=== PATIENT | female | born 1985 | race Caucasian/White ===

== ENCOUNTER 2016-08-03 15:10 | Emergency (ER) | payer BC ==
[2016-08-03] MEDS ORDERED: Aspirin Low Dose CHEW TAB* 81 MG PO ONE (16:22)
[2016-08-03 16:40] LABS: Urine Bacteria Absent (Absent); Urine Bilirubin Negative (Negative); Urine Glucose Negative (Negative); Urine Nitrite Negative (Negative)
--- NOTE | 2016-08-03 16:46 | ED ---
HPI Chest Pain - HPI Summary HPI Summary: 31F presents with intermittent chest pain for a week. She also admits to lightheadedness when she stands up. She states that she has been having cold like symptoms for a month. She admits to a cough. She denies any fevers. She admits to a headache. She denies any abdominal pain, n/v/d, sore throat. She denies any shortness of breath. She states the chest pain comes and goes and describes it as a pressure in the mild of her chest. She states the pain does not go anywhere. She denies any weakness. She is on control. She denies any family history of blood clots, recent travel, pain or swelling in her calf muscles. She is a a nonsmoker and does not have HTN or DM. - History of Current Complaint Chief Complaint: EDChestPainROMI Time Seen by Provider: 08/03/16 16:22 Pain Intensity: 4 - Allergy/Home Medications Allergies/Adverse Reactions: Allergies Allergy/AdvReac Type Severity Reaction Status Date / Time No Known Allergies Allergy Verified 08/03/16 15:13 PMH/Surg Hx/FS Hx/Imm Hx Endocrine/Hematology History: Denies: Hx Diabetes, Hx Thyroid Disease Cardiovascular History: Denies: Hx Hypertension Respiratory History: Reports: Hx Sleep Apnea, Other Respiratory Problems/ Disorders - SLEEP APNEA W/ CPAP X 3 WKS Denies: Hx Asthma, Hx Chronic Obstructive Pulmonary Disease (COPD) GI History: Reports: Other GI Disorders - constant nausea Denies: Hx Ulcer Musculoskeletal History: Reports: Other Musculoskeletal History - Plantars Fasciitis Denies: Hx Rheumatoid Arthritis, Hx Osteoporosis Sensory History: Reports: Hx Contacts or Glasses Opthamlomology History: Reports: Hx Contacts or Glasses Neurological History: Reports: Hx Headaches - Surgical History Surgery Procedure, Year, and Place: WISDOM TEETH EXTRACTION Infectious Disease History: No Infectious Disease History: Denies: Hx Hepatitis, Hx Human Immunodeficiency Virus (HIV), Traveled Outside the [place] in Last 30 Days - Family History Known Family History: Positive: Cardiac Disease, Diabetes Family History: R & n/C - Social History Alcohol Use: None Hx Substance Use: No Substance Use Type: Reports: None Hx Tobacco Use: No Smoking Status (MU): Never Smoked Tobacco Have You Smoked in the Last Year: No Review of Systems Negative: Fever Positive: Chest Pain Positive: Cough. Negative: Shortness Of Breath Negative: Abdominal Pain, Vomiting, Diarrhea, Nausea Neurological: Other - lightheadness All Other Systems Reviewed And Are Negative: Yes Physical Exam Triage Information Reviewed: Yes Vital Signs On Initial Exam: Initial Vitals Temp Pulse Resp BP Pulse Ox 97 F 75 16 141/64 99 08/03/16 15:13 08/03/16 15:13 08/03/16 15:13 08/03/16 15:13 08/03/16 15:13 Vital Signs Reviewed: Yes Appearance: Positive: Well-Appearing Skin: Positive: Warm, Dry Head/Face: Positive: Normal Head/Face Inspection Eyes: Positive: Normal, Conjunctiva Clear ENT: Positive: Normal ENT inspection, Pharynx normal, TMs normal Neck: Positive: Supple, Nontender Respiratory/Lung Sounds: Positive: Clear to Auscultation, Breath Sounds Present , Other - neg egophony Cardiovascular: Positive: Normal, RRR Abdomen Description: Positive: Nontender, Soft Bowel Sounds: Positive: Present Neurological: Positive: Sensory/Motor Intact, Alert, Oriented to Person Place, Time, CN Intact II-III - Stevinson Coma Scale Best Eye Response: 4 - Spontaneous Best Motor Response: 6 - Obeys Commands Best Verbal Response: 5 - Oriented Diagnostics - Vital Signs Vital Signs Temp Pulse Resp BP Pulse Ox 08/03/16 16:32 102/60 08/03/16 16:17 75 97 08/03/16 15:13 97 F 75 16 141/64 99 - Laboratory Lab Results: Lab Results 08/03/16 Range/Units 16:07 Urine Color Yellow Urine Appearance Cloudy Urine pH 5.0 (5-9) Ur Specific Lamar 1.027 (1.010-1.030) Urine Protein Negative (Negative) Urine Ketones Negative (Negative) Urine Blood Negative (Negative) Urine Nitrate Negative (Negative) Urine Bilirubin Negative (Negative) Urine Urobilinogen Negative (Negative) Ur Leukocyte Esterase Trace H (Negative) Urine WBC (Auto) Trace(0-5/hpf) (Absent) Urine RBC (Auto) Absent (Absent) Ur Squamous Epith Cells Present H (Absent) Calcium Oxalate Crystal Present H (Absent) Urine Bacteria Absent (Absent) Urine Glucose Negative (Negative) Result Diagrams: 08/03/16 16:45 08/03/16 16:45 Lab Statement: Any lab studies that have been ordered have been reviewed, and results considered in the medical decision making process. - Radiology chest Xray Interpretation: No Acute Changes Radiology Interpretation Completed By: Radiologist - EKG No standard instances Cardiac Rate: NL EKG Rhythm: Sinus Rhythm EKG Interpretation: early repolization and T waves changes consistent with previous EKG EKG Comparison: No Significant Change Chest Pain Course/Dx - Course Course Of Treatment: 31F presents with chest pain for 5 days. states has had cough for many weeks now. also admits to feeling lightheaded with standing. only risk factor for heart disease is family history. on exam lungs CTA. normal neuro exam. EKG normal. labs normal: troponins (2), d-dimer, chest xray normal, discussed that chest pain is not cardiac related, gave medication for cough but do not see evidence of pneumonia on chest xray. discussed lightheadedness is likely due to orthostatic so needs to stand up slower, patient understands and agrees with plan - Chest Pain Differential Diagnosis/HQI/PQRI: Acute NH, Chest Wall, Lower Respiratory Infection - Diagnoses Provider Diagnoses: Chest pain, Cough, Lightheadedness Discharge - Discharge Plan Condition: Good Disposition: HOME Prescriptions: Benzonatate CAP* [Tessalon 100 MG CAP*] 100 mg PO TID #15 cap Patient Education Materials: Chest Pain (ED), Lightheadedness (ED) Referrals: Negin Moreau CNM [Primary Care Provider] - Additional Instructions: Follow up with primary within 3 days Take tessalon three times a day for cough Stand up slowly to prevent lightheadedness and drink plenty of fluids Return to ED if chest pain changes, develop shortness of breath, or any new or worsening symptoms
[2016-08-03 16:51] LABS: Hematocrit 40 % (35-47); Mean Corpuscular HGB Conc 33 g/dl (31-36); Mean Corpuscular Hemoglobin 27 pg (27-31); Mean Corpuscular Volume 83 fL (80-97); Mean Platelet Volume 8 um3 (7.4-10.4); Red Blood Count 4.76 10^6/ul (4.0-5.4); Red Cell Distribution Width 15 % (10.5-15); White Blood Count 11.7 10^3/ul (3.5-10.8)
[2016-08-03 17:18] LABS: Albumin 3.9 g/dL (3.2-5.2); BUN/Creatinine Ratio 17.3 (8-20); EGFR African American 116.7 (>60); EGFR Non-African American 90.7 (>60); Globulin 2.9 g/dL (2-4); Potassium 3.9 mmol/L (3.5-5.0); Total Bilirubin 0.4 mg/dL (0.2-1.0); Total Protein 6.8 g/dL (6.4-8.9)
--- NOTE | 2016-08-03 17:21 | RAD ---
Indication: Chest pain. 2 views of the chest are reviewed. Dual-energy PA views were obtained. No mediastinal shift. Heart is of normal size and configuration. Lung newell demonstrate no pleural fluid, pneumonia or pneumothorax. IMPRESSION: NO ACTIVE CARDIOPULMONARY DISEASE IS NOTED.
[2016-08-03 20:46] VITALS: BP 110/47
== END 2016-08-03 20:44 | disposition home or self-care (01) ==
LOC: ED 15:10
DX: R07.9 Chest pain, unspecified (principal); R42 Dizziness and giddiness; R05 Cough
CPT/HCPCS: 36415; 71020; 80053; 81003; 81015; 84484; 85025; 85379; 87086; 87502; 93005; 99282; A9270-GY

== ENCOUNTER 2016-10-07 15:02 | Emergency (ER) | payer BC ==
[2016-10-07 15:07] VITALS: BP 145/81
--- NOTE | 2016-10-07 17:19 | ED ---
Upper Extremity Pain - HPI Summary HPI Summary: Patient presents with two days of left shoulder pain that began without known injury. She awoke two days ago with pain that she treated with Icy/Hot and ibuprofen. The pain has waxed and waned but due to it's continuation she came in today for evaluation. She denies fever, chills, warmth or redness. No N/T. - History of Current Complaint Chief Complaint: EDExtremityUpper Stated Complaint: LT SHOULDER/NECK PAIN Time Seen by Provider: 10/07/16 16:32 Hx Obtained From: Patient Hx Last Menstrual Period: IUD Mechanism Of Injury: Unknown Onset/Duration: Atraumatic Timing: Constant - with intermittent intensity Severity Initially: Mild Severity Currently: Moderate Pain Location: Shoulder Character: Aching Aggravating Factor(s): Movement Alleviating Factor(s): Nothing Associated Signs & Symptoms: Positive: Negative Related History: Dominant Hand Right - Allergies/Home Medications Allergies/Adverse Reactions: Allergies Allergy/AdvReac Type Severity Reaction Status Date / Time No Known Allergies Allergy Verified 08/03/16 15:13 PMH/Surg Hx/FS Hx/Imm Hx Endocrine/Hematology History: Denies: Hx Diabetes, Hx Thyroid Disease Cardiovascular History: Denies: Hx Hypertension Respiratory History: Reports: Hx Sleep Apnea, Other Respiratory Problems/ Disorders - SLEEP APNEA W/ CPAP X 3 WKS Denies: Hx Asthma, Hx Chronic Obstructive Pulmonary Disease (COPD) GI History: Reports: Other GI Disorders - constant nausea Denies: Hx Ulcer Musculoskeletal History: Reports: Other Musculoskeletal History - Plantars Fasciitis Denies: Hx Rheumatoid Arthritis, Hx Osteoporosis Sensory History: Reports: Hx Contacts or Glasses Opthamlomology History: Reports: Hx Contacts or Glasses Neurological History: Reports: Hx Headaches - Surgical History Surgery Procedure, Year, and Place: WISDOM TEETH EXTRACTION Infectious Disease History: No Infectious Disease History: Denies: Hx Hepatitis, Hx Human Immunodeficiency Virus (HIV), Traveled Outside the [place] in Last 30 Days - Family History Known Family History: Positive: Cardiac Disease, Diabetes Family History: R & n/C - Social History Occupation: Unemployed Lives: With Family Alcohol Use: None Hx Substance Use: No Substance Use Type: Reports: None Hx Tobacco Use: No Smoking Status (MU): Never Smoked Tobacco Have You Smoked in the Last Year: No Review of Systems Positive: Myalgia. Negative: Decreased ROM, Edema Negative: Bruising Negative: Paresthesia, Numbness All Other Systems Reviewed And Are Negative: Yes Physical Exam Triage Information Reviewed: Yes Vital Signs On Initial Exam: Initial Vitals Temp Pulse Resp BP Pulse Ox 97.9 F 94 20 145/81 98 10/07/16 15:04 10/07/16 15:04 10/07/16 15:04 10/07/16 15:04 10/07/16 15:04 Vital Signs Reviewed: Yes Appearance: Positive: Well-Appearing, No Pain Distress, Obese Skin: Positive: Warm, Skin Color Reflects Adequate Perfusion, Dry, Soft Head/Face: Positive: Normal Head/Face Inspection Eyes: Positive: EOMI, LEONEL, Conjunctiva Clear ENT: Positive: Hearing grossly normal Respiratory/Lung Sounds: Positive: Breath Sounds Present Cardiovascular: Positive: RRR Musculoskeletal: Positive: Strength/ROM Intact - 5/5 abd/IR/ER, Pain @ - FF is painful; TTP left rhomboids and scapular spine. Negative: Edema Left Neurological: Positive: Sensory/Motor Intact, Alert, Oriented to Person Place, Time, NV Bundle Intact Distally, Normal Gait Psychiatric: Positive: Affect/Mood Appropriate AVPU Assessment: Alert Diagnostics - Vital Signs Vital Signs Temp Pulse Resp BP Pulse Ox 10/07/16 15:07 97.9 F 88 20 145/81 98 10/07/16 15:04 97.9 F 94 20 145/81 98 - Laboratory Lab Statement: Any lab studies that have been ordered have been reviewed, and results considered in the medical decision making process. - Radiology No standard instances Xray Interpretation: No Acute Changes Radiology Interpretation Completed By: Radiologist Course/Dx - Diagnoses Differential Diagnosis/HQI/PQRI: Positive: Arthritis, Bursitis, Contusion, Fracture (Closed), Hematoma, Strain, Sprain Provider Diagnoses: Left shoulder pain Discharge - Discharge Plan Condition: Stable Disposition: HOME Patient Education Materials: Shoulder Pain (ED) Referrals: Shila Davis MD [Primary Care Provider] - Additional Instructions: Please use ibuprofen 400-600mg three times daily with meals for the next 3-5 days in combination with rest, and ice. Perform gentle range of motion exercises as well. Follow-up with your primary care provider if symptoms do not begin to improve in the next 5-7 days for possible referral to orthopedics for evaluation. Return to the emergency department if symptoms worsen.
--- NOTE | 2016-10-07 17:23 | RAD ---
INDICATION: Left shoulder pain COMPARISON: None. TECHNIQUE: 5 views of the left shoulder were obtained. FINDINGS: The adequately corticated bones are in normal alignment. Joint spaces appear maintained. No fracture, dislocation or focal bony abnormality is seen. IMPRESSION: Normal radiograph of the left shoulder. If the patient's symptoms persist, follow-up imaging is recommended.
== END 2016-10-07 17:25 | disposition home or self-care (01) ==
LOC: ED 15:02
DX: M25.512 Pain in left shoulder (principal); G47.30 Sleep apnea, unspecified
CPT/HCPCS: 99281

== ENCOUNTER 2017-06-08 16:38 | Emergency (ER) | payer BC ==
--- OUTSIDE RECORDS SUMMARY | 2017-06-08 17:08 | XMS REPORT ---
:1985 External Reference #:[id number] Author Organization [facility] Address [address] [place] [address] Phone [phone] Care Team Providers Name Role Phone Shila Davis M.D. 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 Primary Care Physician Unavailable Payers Type Date Identification Numbers Payment Provider Subscriber Commercial Effective: Policy Number: BC/BS Of LEAH Francoiselijah Miguel 2016 [id number] PayID: [id number] [facility] [id number] [place] [id number] Problems Date Description Provider Status Onset: 02/27/2016 Mild recurrent major depression Shila Davis M.D. Active Onset: 10/02/2011 Chest pain Jo Magallon M.D. Resolved Resolved: 07/15/2015 Onset: 10/02/2011 Contraception care management Jo Magallon M.D. Resolved Resolved: 07/15/2015 Onset: 10/02/2011 Contact dermatitis Jo Magallon M.D. Resolved Resolved: 07/15/2015 Onset: 10/02/2011 Sleep apnea Jo Magallon M.D. Resolved Resolved: 07/15/2015 Onset: 10/02/2011 Adjustment disorder with anxious Jo Magallon M.D. Resolved mood Resolved: 06/16/2016 Onset: 10/02/2011 Obstructive sleep apnea syndrome Jo Magallon M.D. Resolved Resolved: 06/16/2016 Onset: 01/03/2013 Constipation Francisca Mead M.D. Resolved Resolved: 06/16/2016 Family History Date Family Member(s) Problem(s) Comments General No fam hx lung, colon, breast CA. Father Hypertension Father djd, sleep apnea, DM. : (2015) Mother due to Pulmonary after Gallbladder Embolus surgery Mother epilepsy, seizure free 20 yrs Number of Siblings Siblings:2. healthy. 1 sister, 1 brother. Social History Type Date Description Comments Education Highest level of education completed is an associates degree from [employer]. Getting Ba through [employer] on line. 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 Seat Belt/Car Seat Always uses a seat belt Smoke Alarms There are smoke alarms in the house Allergies, Adverse Reactions, Alerts Date Description Reaction Status Severity Comments 04/19/2017 Methylprednisolone rash active 05/29/2009 Nka inactive 01/05/2011 NKDA inactive Medications Medication Date Status Form Strength Qnty SIG Indications Ordering Provider Proair HFA 04/19 Active Aerosol 108(90Bas 8.500 2 puffs J20.9 Nissa Adriana ) gm every 4-6 Davsi, SLAG MOTOR OPERATOR mcg/Act hours as needed for cough Famotidine 04/16 Active Tablets 40mg 60tab 1 tab by K21.9 Reva s mouth Terrell, every 12 MOTION STUDY TECHNICIAN hours as needed reflux Amoxicillin/Clavu 04/16 Active Tablets 875-125mg 20tab take one R05 Reva lanate Potassium s tab by Terrell, mouth MOTION STUDY TECHNICIAN twice a day x 10 days Buspirone HCL 02/01 Active Tablets 7.5mg 60tab 1 tab by F41.9 s mouth Ryan, twice a M.D. day as needed Multi Adult Active Chewtabs 2 qd Unknown Gummies /0000 Methylprednisolon 04/16 Hx Tablets 4mg 1pack dose R05 Reva e pack, Terrell, - admin as MOTION STUDY TECHNICIAN 04/18 Benzonatate 08/05 Hx Capsules 100mg 1-2 by Unknown mouth - three 09/07 times day as needed for cough Amoxicillin/Clavu 08/05 Hx Tablets 875-125mg 20tab 1 by J01.90 Meredith lanate Potassium /2016 s mouth Arti, - twice a MOTION STUDY TECHNICIAN 09/07 day with food Sertraline HCL 01/15 Hx Tablets 50mg 30tab 1 by F33.0 s mouth Jefferson, - every day M.D. 08/24 Anusol-HC 11/18 Hx Suppositor 25mg 12uni 1 per K64.8 y ts rectum Aurelia, - bid x 6 Afnp-C Anusol-HC 10/07 Hx Suppositor 25mg 12uni 1 per K64.8 y ts rectum Aurelia, - bid x 6 Afnp-C No Active 05/01 Hx Unknown Medications - 08/13 Benzonatate 04/24 Hx Capsules 200mg 30cap 1 by 465.8 s mouth Aurelia, - three Afnp-C 05/01 times day as needed for cough No Active 03/15 Hx Unknown Medications /2013 - 04/24 Fluconazole 03/14 Hx Tablets 150mg 1tabs take one tablet by [facility] - mouth x 1 Afnp-C 03/15 No Active 12/18 Hx Unknown Medications - 03/14 Amoxicillin 01/03 Hx Capsules 250mg 15cap 1 po tid 791.7 Francisca Vu s x 5 days [place], Cele M.Umair 08/21 Nystatin 07/26 Hx Cream 334388Oph 30gm to apply 616.10 t/GM to Aurelia, - perineum Afnp-C 08/02 /labia/va ginal opening as directed bid x 7 days Amoxicillin 06/14 Hx Capsules 500mg 30cap 1 po tid 461.8 Francisca LAntonino s x 10 d [place], - with M.Umair 07/26 yogurt with 5 cultures. Fexofenadine HCL 08/19 Hx Tablets 180mg 30tab 1 po qd 477.9 westley Moses, - Afnp-C 06/07 Amoxicillin 04/22 Hx Tablets 500mg 30tab 1 po tid 382.9 Wright AAntonino /2010 westley Bejarano M.D. - 08/19 Astelin 10/27 Hx Solution 137mcg/Sp 1unit 2 sprays 477.0 Jo . ray s bid Naun, - M.D. 08/19 Vitamin D3 10/27 Hx 2000Unit 90uni 1 po qd 268.9 Jo . ts Naun, - M.D. 01/05 Nuvaring 07/14 Hx Ring 0.12-0.01 1unit insert pv V25.09 Jo . 5mg/24HR s and leave LaFmervin, - in for M.D. 08/19 weeks, remove for one week then insert new ring Ketoconazole 07/14 Hx Cream 2% 60gm apply to 110.5 Jo . affected LaFmervin, - areas of M.D. 04/22 skin Cipro 03/18 Hx Tablets 250mg 10tab 1 po bid Jo . s for 5 ace, - days M.D. 07/14 Bactrim DS 03/14 Hx Tablets 800-160mg 10tab 1 po bid 788.41 Jo . s for 5 ace, - days M.D. 07/14 Multivitamins 09/11 Hx Tablets 30tab 1 po qd [facility] 07/10 Hx Tablets 0.15-0.03 1pack 1 po qd V25.09 Jo . mg Naun, - M.D. 07/14 Cpap Mask 05/29 Hx 1unit nasal 327.23 s mask Victor Hugo, - Afnp-C 09/11 Ondansetron HCL Hx Tablets 4mg 20tab take one Unknown / s tablet by - mouth 08/21 times a day as needed for nausea Complete Hx Tablets 14-0.4mg 30tab 1 po qd Unknown /0000 s - 12/18 Stool Softener Hx Tablets 1 po qd Unknown /0000 - 06/16 Mirena (52 MG) Hx IUD 20mcg/24H 2015 Unknown /0000 R - 06/07 Medications Administered in Office Medication Date Status Form Strength Qnty SIG Indications Ordering Provider TB Intradermal Administered Injection Francisca Riggs 014 Avril Mead TB Intradermal Administered Injection Jo Riggs 011 Avril Magallon TB Intradermal Administered Injection Jo Riggs 010 Avril Magallon Immunizations CPT Code Status Date Vaccine Reaction Lot # 52505 Given 02/01/2017 Influenza Vac, Quadrivalent, Slit [id number] [address] Given 04/02/2014 DO Not Use Split Influenza Virus [facility] Vaccine 11930 Given 03/02/2012 Preservative free flu 3 yrs+ and older [id number] Given 01/21/2011 DO Not Use Split Influenza Virus [id number] Vaccine 49506 Given 01/05/2011 Tdap Tetanus, W Pertussis [id number] 94411 Given 03/14/2010 DO Not Use Split Influenza Virus [id number] Vaccine Vital Signs Date Vital Result Comment 06/08/2017 BP Systolic 112 mmHg BP Diastolic 70 mmHg Heart Rate 90 /min Body Temperature 98.4 F Height 65 inches 5'5" stated 06/01/2017 BP Systolic 112 mmHg BP Diastolic 70 mmHg Heart Rate 88 /min Body Temperature 99.1 F Respiratory Rate 17 /min Height 65 inches 5'5" stated Weight 235.50 lb BMI (Body Mass Index) 39.2 kg/m2 04/19/2017 BP Systolic 120 mmHg BP Diastolic 64 mmHg Heart Rate 76 /min Body Temperature 98.6 F Height 65.25 inches 5'5.25" Weight 237.12 lb BMI (Body Mass Index) 39.2 kg/m2 04/16/2017 BP Systolic 108 mmHg BP Diastolic 78 mmHg Heart Rate 68 /min Body Temperature 97.7 F Respiratory Rate 16 /min Height 65.25 inches 5'5.25" Weight 238.00 lb BMI (Body Mass Index) 39.3 kg/m2 02/01/2017 BP Systolic 110 mmHg BP Diastolic 70 mmHg Heart Rate 72 /min Body Temperature 98.8 F Respiratory Rate 16 /min Height 65.25 inches 5'5.25" Weight 244.00 lb BMI (Body Mass Index) 40.3 kg/m2 11/27/2016 BP Systolic 130 mmHg BP Diastolic 80 mmHg Heart Rate 72 /min Body Temperature 98.4 F Height 65.5 inches 5'5.50" Measured 01/16/16 Weight 244.00 lb BMI (Body Mass Index) 40.0 kg/m2 09/23/2016 BP Systolic 126 mmHg BP Diastolic 80 mmHg Heart Rate 96 /min Body Temperature 98.4 F Respiratory Rate 16 /min Height 65.5 inches 5'5.50" Measured 01/16/16 Weight 247.38 lb BMI (Body Mass Index) 40.5 kg/m2 08/05/2016 BP Systolic 100 mmHg BP Diastolic 60 mmHg Heart Rate 76 /min Body Temperature 99.2 F Respiratory Rate 16 /min Height 65.5 inches 5'5.50" Measured 01/16/16 Weight 247.25 lb BMI (Body Mass Index) 40.5 kg/m2 06/16/2016 BP Systolic 120 mmHg BP Diastolic 70 mmHg Heart Rate 76 /min Body Temperature 98.6 F Respiratory Rate 16 /min Height 65.5 inches 5'5.50" Measured 01/16/16 Weight 244.00 lb BMI (Body Mass Index) 40.0 kg/m2 02/27/2016 BP Systolic 124 mmHg BP Diastolic 68 mmHg Heart Rate 74 /min Body Temperature 98.1 F Respiratory Rate 18 /min Height 65.5 inches 5'5.50" Measured 01/16/16 Weight 247.00 lb BMI (Body Mass Index) 40.5 kg/m2 02/05/2016 BP Systolic 102 mmHg BP Diastolic 68 mmHg Heart Rate 68 /min Body Temperature 98.6 F Respiratory Rate 16 /min Height 65.5 inches 5'5.50" Measured 01/16/16 01/16/2016 BP Systolic 128 mmHg BP Diastolic 74 mmHg Heart Rate 78 /min Body Temperature 98.2 F Respiratory Rate 16 /min Height 65.5 inches 5'5.50" Measured 01/16/16 Weight 245.25 lb BMI (Body Mass Index) 40.2 kg/m2 11/21/2015 BP Systolic 100 mmHg BP Diastolic 70 mmHg Heart Rate 80 /min Body Temperature 98.4 F Respiratory Rate 16 /min Height 65.25 inches 5'5.25" Weight 240.00 lb BMI (Body Mass Index) 39.6 kg/m2 10/08/2015 BP Systolic 118 mmHg BP Diastolic 70 mmHg Heart Rate 84 /min Body Temperature 98.4 F Respiratory Rate 18 /min O2 % BldC Oximetry 98 % Height 65.25 inches 5'5.25" Weight 237.25 lb BMI (Body Mass Index) 39.2 kg/m2 08/14/2015 BP Systolic 146 mmHg BP Diastolic 83 mmHg Heart Rate 88 /min Body Temperature 97.9 F Respiratory Rate 14 /min O2 % BldC Oximetry 97 % Height 65.25 inches 5'5.25" Weight 241.38 lb BMI (Body Mass Index) 39.9 kg/m2 07/15/2015 BP Systolic 130 mmHg BP Diastolic 76 mmHg Heart Rate 80 /min Body Temperature 97.9 F Respiratory Rate 16 /min Height 65.25 inches 5'5.25" Weight 243.00 lb BMI (Body Mass Index) 40.1 kg/m2 04/24/2014 BP Systolic 126 mmHg BP Diastolic 74 mmHg Heart Rate 72 /min Body Temperature 99.0 F Respiratory Rate 16 /min Height 65.25 inches 5'5.25" Weight 245.00 lb BMI (Body Mass Index) 40.5 kg/m2 03/14/2014 BP Systolic 132 mmHg BP Diastolic 80 mmHg Heart Rate 80 /min Body Temperature 98.6 F Respiratory Rate 14 /min Height 65.25 inches 5'5.25" Weight 247.00 lb BMI (Body Mass Index) 40.8 kg/m2 01/05/2014 BP Systolic 120 mmHg BP Diastolic 80 mmHg Heart Rate 80 /min Body Temperature 98.0 F Respiratory Rate 18 /min Height 65.25 inches 5'5.25" Weight 241.00 lb BMI (Body Mass Index) 39.8 kg/m2 12/18/2013 BP Systolic 120 mmHg BP Diastolic 80 mmHg Heart Rate 80 /min Body Temperature 98.0 F Respiratory Rate 18 /min Height 65.25 inches 5'5.25" Weight 241.00 lb BMI (Body Mass Index) 39.8 kg/m2 08/21/2013 BP Systolic 112 mmHg BP Diastolic 70 mmHg Heart Rate 74 /min Body Temperature 98.7 F Height 65.25 inches 5'5.25" Weight 237.00 lb BMI (Body Mass Index) 39.1 kg/m2 01/03/2013 BP Systolic 120 mmHg BP Diastolic 70 mmHg Heart Rate 72 /min Body Temperature 98.7 F Respiratory Rate 16 /min Height 65.25 inches 5'5.25" Weight 234.00 lb BMI (Body Mass Index) 38.6 kg/m2 12/07/2012 BP Systolic 112 mmHg BP Diastolic 80 mmHg Heart Rate 68 /min Body Temperature 99.9 F Respiratory Rate 18 /min Height 65 inches 5'5" Weight 232.00 lb BMI (Body Mass Index) 38.6 kg/m2 08/29/2012 BP Systolic 120 mmHg BP Diastolic 72 mmHg Heart Rate 72 /min Body Temperature 99.1 F Respiratory Rate 16 /min Height 65 inches 5'5" Weight 233.25 lb BMI (Body Mass Index) 38.8 kg/m2 07/26/2012 BP Systolic 100 mmHg BP Diastolic 68 mmHg Heart Rate 64 /min Body Temperature 99.9 F Height 65 inches 5'5" Weight 232.00 lb BMI (Body Mass Index) 38.6 kg/m2 06/14/2012 BP Systolic 120 mmHg BP Diastolic 80 mmHg Heart Rate 68 /min Body Temperature 99.0 F Height 65 inches 5'5" Weight 232.00 lb BMI (Body Mass Index) 38.6 kg/m2 06/07/2012 BP Systolic 110 mmHg BP Diastolic 76 mmHg Heart Rate 64 /min Body Temperature 99.0 F Height 65 inches 5'5" Weight 233.00 lb BMI (Body Mass Index) 38.8 kg/m2 03/02/2012 BP Systolic 100 mmHg BP Diastolic 76 mmHg Heart Rate 72 /min Body Temperature 98.1 F Height 65 inches 5'5" Weight 230.00 lb BMI (Body Mass Index) 38.3 kg/m2 10/02/2011 BP Systolic 108 mmHg BP Diastolic 70 mmHg Heart Rate 76 /min Body Temperature 99.4 F Height 65 inches 5'5" Weight 215.00 lb BMI (Body Mass Index) 35.8 kg/m2 08/20/2011 BP Systolic 106 mmHg BP Diastolic 66 mmHg Heart Rate 76 /min Body Temperature 98.8 F Height 65 inches 5'5" Weight 215.00 lb BMI (Body Mass Index) 35.8 kg/m2 04/22/2011 BP Systolic 104 mmHg BP Diastolic 76 mmHg Heart Rate 72 /min Body Temperature 98.4 F Height 65 inches 5'5" Weight 217.00 lb BMI (Body Mass Index) 36.1 kg/m2 01/21/2011 BP Systolic 110 mmHg BP Diastolic 70 mmHg Heart Rate 72 /min Respiratory Rate 16 /min Height 65 inches 5'5" Weight 220.00 lb BMI (Body Mass Index) 36.6 kg/m2 01/05/2011 BP Systolic 114 mmHg BP Diastolic 64 mmHg Heart Rate 72 /min Height 65 inches 5'5" Weight 219.00 lb BMI (Body Mass Index) 36.4 kg/m2 10/27/2010 BP Systolic 110 mmHg BP Diastolic 64 mmHg Heart Rate 76 /min Body Temperature 99.1 F Respiratory Rate 16 /min Height 65 inches 5'5" Weight 222.00 lb BMI (Body Mass Index) 36.9 kg/m2 Right Visual Acuity Distance 20/50 Left Visual Acuity Distance 20/50 07/14/2010 BP Systolic 118 mmHg BP Diastolic 64 mmHg Heart Rate 64 /min Body Temperature 98.4 F Respiratory Rate 20 /min Height 65 inches 5'5" Weight 224.00 lb BMI (Body Mass Index) 37.3 kg/m2 03/14/2010 BP Systolic 110 mmHg BP Diastolic 70 mmHg Heart Rate 80 /min Body Temperature 99.5 F Respiratory Rate 20 /min Height 65 inches 5'5" Weight 221.00 lb BMI (Body Mass Index) 36.8 kg/m2 02/26/2010 BP Systolic 102 mmHg BP Diastolic 74 mmHg Heart Rate 66 /min Height 65 inches 5'5" Weight 219.00 lb BMI (Body Mass Index) 36.4 kg/m2 09/11/2009 BP Systolic 104 mmHg BP Diastolic 62 mmHg Heart Rate 88 /min Height 65 inches 5'5" Weight 211.00 lb BMI (Body Mass Index) 35.1 kg/m2 07/10/2009 BP Systolic 110 mmHg BP Diastolic 80 mmHg Heart Rate 84 /min Height 65 inches 5'5" Weight 209.00 lb BMI (Body Mass Index) 34.8 kg/m2 05/29/2009 BP Systolic 118 mmHg BP Diastolic 70 mmHg Heart Rate 80 /min Height 65 inches 5'5" Weight 210.00 lb BMI (Body Mass Index) 34.9 kg/m2 Results Test Date Test Result H/L Range Note Complete Blood Count 06/08/2017 WBC 9.9 x10^3/UL High 3.6-9.6 RBC 4.36 x10^6/UL 3.90-5.70 HGB 12.6 g/dL 12.1-17.2 HCT 37 % 36-50 MCV 85.0 fL 82.2-97.4 MCH 29.0 pg 27.6-33.3 MCHC 34.1 g/dL 33.0-35.5 RDW 14.3 % High 11.6-13.7 PLT 347 x10^3/UL 150-400 MPV 7.1 fL Low 7.4-10.4 Gran # 6.8 x10^3/UL 1.5-7.2 Lymph# 2.7 x10^3/UL 0.7-4.9 Wirt# 0.4 x10^3/UL 0.1-0.9 Gran % 67.6 % 42.2-75.2 Lymph % 27.5 % 20.5-51.1 Wirt% 4.9 % 1.7-9.3 Complete Blood Count 02/06/2017 WBC 7.7 x10^3/UL 3.6-9.6 RBC 4.61 x10^6/UL 3.90-5.70 HGB 13.1 g/dL 12.1-17.2 HCT 40 % 36-50 MCV 86.0 fL 82.2-97.4 MCH 28.5 pg 27.6-33.3 MCHC 33.2 g/dL 33.0-35.5 RDW 14.5 % High 11.6-13.7 PLT 337 x10^3/UL 150-400 MPV 6.8 fL Low 7.4-10.4 Gran # 5.4 x10^3/UL 1.5-7.2 Lymph# 2.0 x10^3/UL 0.7-4.9 Wirt# 0.3 x10^3/UL 0.1-0.9 Gran % 68.3 % 42.2-75.2 Lymph % 26.7 % 20.5-51.1 Wirt% 5.0 % 1.7-9.3 Comprehensive Metabolic Prof 02/06/2017 Sodium 142 mEq/L 134-149 Potassium 4.7 mEq/L 3.6-5.5 Chloride 104 mEq/L 94-112 Carbon Dioxide 22 mEq/L 21-32 Glucose 94 mg/dL 70-105 BUN 8 mg/dL 6-26 Creatinine 0.7 mg/dL 0.6-1.4 BUN/Creat Ratio 11.4 CALC 8.0-36.0 Calcium 8.7 mg/dL 8.6-10.2 Total Protein 6.4 g/dL 6.4-8.3 Albumin 4.0 g/dL 3.8-5.5 Globulin 2.4 g/dL 2.0-4.8 A/G Ratio 1.7 CALC 0.6-2.3 Alk. Phosphatase 56 U/L 30-110 Alt (SGPT) 15 U/L 7-35 Ast (Sgot) 14 U/L 5-34 Total Bilirubin 0.9 mg/dL 0.2-1.3 GFR Non- >60 ml/min/1.73m^ >=60 GFR >60 ml/min/1.73m^ >=60 Lipid Profile 02/06/2017 Cholesterol 177 mg/dL 120-200 Triglycerides 123 mg/dL 30-200 HDL Cholesterol 34 mg/dL 30-85 LDL (Calculated) 118 CALC 0-129 VLDL Cholesterol 25 mg/dL 0-50 HDL Risk Factor 5.2 CALC High 0.0-4.4 Laboratory test finding 02/06/2017 TSH 1.70 mIU/L 0.50-6.00 Free T4 0.93 ng/dL 0.75-1.54 Vitamin B-12 764 pg/mL 230-1050 Lyme AB/Western Blot Reflex 02/06/2017 Lyme IgG/IgM Ab <0.91 ISR 0.00- 0.90 1, 2 Lyme Disease Ab, Quant, IgM <0.80 index 0.00-0.79 1, 3 Laboratory test finding 02/06/2017 Hemoglobin A1c (Fma) 5.7 % % 4.1-5.7 Lyme AB/Western Blot 11/27/2016 Lyme IgG/IgM Ab <0.91 ISR 0.00-0.90 4 Reflex Lyme Disease Ab, Quant, IgM <0.80 index 0.00-0.79 5 Vaginitis Nuswab 08/05/2016 Atopobium vaginae High - 2 Score 6 Bvab 2 Low - 0 Score 6 Megasphaera 1 High - 2 Score 6, 7 Freida albicans, Yesenia Positive Negative 6, 8 Freida glabrata, Yesenia Negative Negative 6, 9 Trich vag by Yesenia Negative Negative 6 Laboratory test finding 10/08/2015 Hemoglobin A1c (Fma) 5.7 % 4.1-5.7 CBC Electronic (Fma) 10/08/2015 WBC 8.4 3.6-9.6 RBC 4.94 3.90-5.70 Hemoglobin (Fma/CMC/CTX) 12.9 g/dL 12.1 - 17.2 Hematocrit (Fma/CMC/CTX) 40.8 % 36.1 - 50.3 Platelets 386 10^3/ul 150-400 Lymph% 34.6 % 17.0-48.0 Mixed% 4.2 Neutrophils % 61.2 Mean Corpuscular Vol 83 82.2-97.4 Mean Corpuscular Hemoglobin 26.0 Low 27.6-33.3 Mean Corpuscular Hemo Concen 31.5 Low 32.0-36.0 RDW 15.4 High 11.6-13.7 Mean Platelet Volume 7.1 5.5-11.0 Laboratory test finding 11/26/2014 Urine Culture And SEE RESULT BELOW 10 Sensitivities Vaginitis Dna Affirm 03/14/2014 Screen Trichomonas NEGATIVE Vaginalis Dna Screen Gardnerella Vaginalis Dna POSITIVE Screen Freida Species Dna POSITIVE Laboratory test finding 03/14/2014 Wet Prep (Fma,CMC,CX) fadi:: ++ hyphae Ua - Micro (Fma) 12/18/2013 Appearance clear Color yellow Glucose neg Bilirubin neg Ketones neg SP Grav >1.030 Blood trace-intact PH 5.5 Protein neg Urobil 0.2 Nitrite neg Leukocytes (Fma/CMC/Centrex) neg Hyaline - /Lpf Granular - /Lpf WBC (Fma,Centrex) 3-5 RBC 1-2 Mucus small amt /Lpf Epith few /Lpf Bacteria 1+ /Hpf Amorphous small amt /Lpf Crystals, Fluid (Fma/CMC/CTX) - Z#Comments - Type & Screen 08/04/2013 Patient Blood Type O Positive Antibody Screen NEGATIVE CBC No Diff 08/04/2013 White Blood Count 12.5 10^3/uL High 4.8-10.8 Red Blood Count 4.41 10^6/uL 4.0-5.4 Hemoglobin 12.2 g/dL 12.0-16.0 Hematocrit 36 % 35-47 Mean Corpuscular Volume 83 fL 80-97 Mean Corpuscular Hemoglobin 28 pg 27-31 Mean Corpuscular HGB Conc 34 g/dL 31-36 Red Cell Distribution Width 17 % High 10.5-15 Platelet Count 311 10^3/uL 150-450 Mean Platelet Volume 8 um3 7.4-10.4 Laboratory test 08/03/2013 Amnisure No Membrane Rupt 11 finding <SEE NOTE> Laboratory test 08/02/2013 Amnisure No Membrane Rupt 12 finding <SEE NOTE> Urine Culture And 01/22/2013 Urine Culture (SEE NOTE) 13 Sensitivities Laboratory test 01/22/2013 Beta HCG 00988.0 MIU/ML High 0.0-5.0 14 finding Quantitative C Reactive Protein 1.4 mg/dL High Less than 0.5 Comp Metabolic Panel 01/22/2013 Sodium 134 mmol/L 133-145 Potassium 3.8 mmol/L 3.5-5.0 Chloride 103 mmol/L 101-111 Co2 Carbon Dioxide 24.0 mmol/L 22-32 Anion Gap 7.0 mmol/L 2-11 Glucose 87 mg/dL 70-100 Blood Urea Nitrogen 4 mg/dL Low 6-24 Creatinine 0.60 mg/dL 0.50-1.40 BUN/Creatinine Ratio 6.7 Low 8-20 Calcium 9.0 mg/dL 8.1-9.9 Total Protein 6.1 g/dL Low 6.2-8.1 Albumin 3.3 g/dL Low 3.6-5.4 Globulin 2.8 g/dL 2-4 Albumin/Globulin Ratio 1.2 1-3 Total Bilirubin 0.7 mg/dL 0.4-1.5 Alkaline Phosphatase 40 U/L 30-110 Alt 15 U/L 14-54 Ast 13 U/L 12-42 Egfr Non- 120.8 >60 Egfr 155.4 >60 15 CBC Auto Diff 01/22/2013 White Blood Count 13.7 10^3/uL High 4.8-10.8 Red Blood Count 4.42 10^6/uL 4.0-5.4 Hemoglobin 12.1 g/dL 12.0-16.0 Hematocrit 39 % 35-47 Mean Corpuscular Volume 87 fL 80-97 Mean Corpuscular Hemoglobin 27 pg 27-31 Mean Corpuscular HGB Conc 31 g/dL 31-36 Red Cell Distribution Width 14 % 10.5-15 Platelet Count 311 10^3/uL 150-450 Mean Platelet Volume 8 um3 7.4-10.4 Abs Neutrophils 10.8 10^3/uL High 1.5-7.7 Abs Lymphocytes 2.0 10^3/uL 1.0-4.8 Abs Monocytes 0.8 10^3/uL 0-0.8 Abs Eosinophils 0.1 10^3/uL 0-0.6 Abs Basophils 0 10^3/uL 0-0.2 Abs Nucleated RBC 0.01 10^3/uL Granulocyte % 79.0 % 38-83 Lymphocyte % 14.5 % Low 25-47 Monocyte % 5.8 % 1-9 Eosinophil % 0.4 % 0-6 Basophil % 0.3 % 0-2 Nucleated Red Blood Cells % 0.1 Abo/RH Type 01/22/2013 Patient Blood Type O Positive Inr/Protime 01/22/2013 Inr 0.89 0.87-0.97 Urine Microscopic 01/22/2013 Urine WBC 3+ (>30 /hpf) None Seen Urine RBC 3+ (>10 /hpf) None Seen Urine Mucus Present /lpf Absent Urine Epithelial Cells 3+ Squamous /hpf None Seen Bacteria Urine 2+ None Seen Urinalysis 01/22/2013 Urine Color Yellow Urine Appearance Clear Urine Specific [place] 1.007 Low 1.010-1.030 Urine Esterase 3+ Negative Urine Nitrate Negative Negative Urine Urobilinogen Negative E.U./dL Negative Urine Protein Negative mg/dL Negative Urine pH 6.5 5-9 Urine Blood 3+ Negative Urine Ketones Negative mg/dL Negative Urine Bilirubin Negative Negative Urine Glucose Negative mg/dL Negative Laboratory test finding 01/22/2013 Activated Partial 32.8 seconds 22.18- 37.18 Thrombo Time Ua - Micro ([facility]) 01/03/2013 Appearance clear Color yellow Glucose neg Bilirubin neg Ketones neg SP Grav 1.025 Blood neg PH 6.0 Protein neg Urobil 0.2 Nitrite neg Leukocytes (Fma/CMC/Centrex) moderate Hyaline - /Lpf Granular - /Lpf WBC (Fma,Centrex) 20-25 RBC - Mucus - /Lpf Epith few + /Lpf Bacteria trace /Hpf Amorphous mod amt /Lpf Crystals, Fluid (Fma/CMC/CTX) - Z#Comments not clean catch Laboratory test finding 01/03/2013 Urine Culture Mixed urethral f 16 <SEE NOTE> Laboratory test finding 12/07/2012 HCG, Quantitative 74 mIU/mL 17, 18 Urine (a) 12/07/2012 SP Grav >=1.030 Urine, (Fma/CMC/CTX) EQUIVICAL CBC Auto Diff 11/21/2012 White Blood Count 11.2 10^3/uL High 4.8-10.8 Red Blood Count 4.36 10^6/uL 4.0-5.4 Hemoglobin 12.2 g/dL 12.0-16.0 Hematocrit 38 % 35-47 Mean Corpuscular Volume 88 fL 80-97 Mean Corpuscular Hemoglobin 28 pg 27-31 Mean Corpuscular HGB Conc 32 g/dL 31-36 Red Cell Distribution Width 14 % 10.5-15 Platelet Count 313 10^3/uL 150-450 Mean Platelet Volume 8 um3 7.4-10.4 Abs Neutrophils 6.5 10^3/uL 1.5-7.7 Abs Lymphocytes 3.9 10^3/uL 1.0-4.8 Abs Monocytes 0.6 10^3/uL 0-0.8 Abs Eosinophils 0.1 10^3/uL 0-0.6 Abs Basophils 0.1 10^3/uL 0-0.2 Abs Nucleated RBC 0.01 10^3/uL Granulocyte % 57.7 % 38-83 Lymphocyte % 35.3 % 25-47 Monocyte % 5.3 % 1-9 Eosinophil % 1.2 % 0-6 Basophil % 0.5 % 0-2 Nucleated Red Blood Cells % 0.1 Laboratory test 11/21/2012 D Dimer Quantitative < 200 ng/mL Less Than 230 19 finding Comp Metabolic Panel 11/21/2012 Sodium 141 mmol/L 133-145 Potassium 4.0 mmol/L 3.5-5.0 Chloride 108 mmol/L 101-111 Co2 Carbon Dioxide 25.0 mmol/L 22-32 Anion Gap 8.0 mmol/L 2-11 Glucose 89 mg/dL 70-100 Blood Urea Nitrogen 16 mg/dL 6-24 Creatinine 0.80 mg/dL 0.50-1.40 BUN/Creatinine Ratio 20.0 8-20 Calcium 9.1 mg/dL 8.1-9.9 Total Protein 6.7 g/dL 6.2-8.1 Albumin 3.7 g/dL 3.6-5.4 Globulin 3.0 g/dL 2-4 Albumin/Globulin Ratio 1.2 1-3 Total Bilirubin 0.4 mg/dL 0.4-1.5 Alkaline Phosphatase 52 U/L 30-110 Alt 21 U/L 14-54 Ast 17 U/L 12-42 Egfr Non- 86.7 >60 Egfr 111.5 >60 20 Laboratory test finding 11/21/2012 Troponin I 0 ng/mL 0-0.06 21 Ua - Micro (Fma) 07/26/2012 Appearance CLEAR Color YELLOW Glucose NEG Bilirubin NEG Ketones NEG SP Grav 1.020 Blood TRACE-INTACT PH 7.0 Protein NEG Urobil 0.2 Nitrite NEG Leukocytes (Fma/CMC/Centrex) NEG Hyaline - /Lpf Granular - /Lpf WBC (Fma,Centrex) 0-1 RBC 0-1 Mucus - /Lpf Epith FEW /Lpf Bacteria TRACE /Hpf Amorphous + /Lpf Crystals, Fluid (Fma/CMC/CTX) - Z#Comments - Laboratory test finding 07/26/2012 Wet Prep (Fma,CMC,CX) SEE COMMENTS 22 Urine (Fma) 07/26/2012 SP Grav 1.020 Urine, (Fma/CMC/CTX) NEG Laboratory test finding 07/26/2012 Urine Culture Mixed urethral f <SEE 23 NOTE> Urine (Fma) 03/02/2012 SP Grav 1.015 Urine, (Fma/CMC/CTX) negative HCG Beta Subunit QN 03/02/2012 HCG, Beta Chain, <1 mIU/mL 24 Serial Quant, S Laboratory test finding 09/30/2011 PTT (Aptt) 33.7 SEC 25.1-38.5 D Dimer Quantitative < 200 NG/ML Less Than 230 25 (HCG) Serum NEGATIVE Negative 26 Comp Metabolic Panel 09/30/2011 Sodium 137 mmol/L 135-145 Potassium 4.0 mmol/L 3.5-5.0 Chloride 105 mmol/L 101-111 Co2 (Carbon Dioxide) 26.0 mmol/L 22-32 Anion Gap 6.0 mmol/L 2-11 27 Glucose 85 mg/dL 70-100 BUN 14 mg/dL 6-24 Creatinine 0.8 mg/dL 0.50-1.40 One Over Creatinine 1.25 BUN/Creatinine Ratio 17.5 8-20 Calcium 9.0 mg/dL 8.1-9.9 Total Protein 6.8 GM/DL 6.2-8.1 Albumin 3.7 GM/DL 3.6-5.4 Globulin 3.1 GM/DL 2-4 Albumin/Globulin Ratio 1.2 1-3 Bilirubin Total 0.7 mg/dL 0.4-1.5 28 Alkaline Phosphatase 57 U/L 30-110 Alt (SGPT) 23 U/L 14-54 Ast (Sgot) 16 U/L 12-42 eGFR Non- 87.4 > 60 eGFR 112.4 > 60 29 Laboratory test finding 09/30/2011 Troponin-I 0 NG/ML 0-0.06 30 TSH 2.25 MIU/ML 0.34-5.60 CBC Auto Diff 09/30/2011 White Blood Count 6.8 CUMM 4.8-10.8 Red Cell Count 4.71 CUMM 4.2-5.4 Hemoglobin 13.8 g/dL 12.0-16.0 Hematocrit 41 % 35-47 Mean Corpuscular Volume 86 um3 79-97 Mean Corpuscular Hemoglob 29 pg 27-31 Mean Corpuscular HGB Cone 34 g/dL 32-36 Redcell Distribution WDTH 14 % 10.5-15 Platelet Count 315 CUMM 150-450 Mean Platelet Volume 7.8 um3 7.4-10.4 Gran % 63.0 % 38-83 Lymph % 30.5 % 25-47 Mononuclear % 5.0 % 1-9 Eosinophil % 1.1 % 0-6 Basophil % 0.4 % 0-2 Abs Lymphs 2.1 1.0-4.8 Abs Mononuclear 0.3 0-0.8 Absolute Neutrophil Count 4.3 1.5-7.7 Abs Eosinophils 0.1 0-0.6 Abs Basophils 0 0-0.2 Protime 09/30/2011 Inr 0.89 0.88-1.13 31 Protime 10.6 SEC 10.3-13.5 32 Laboratory test finding 08/20/2011 Quickstrep Negative Negative Throat - Beta Strep Fma NEG @ 48 HRS Ua - Micro (Fma) 10/27/2010 Appearance CLOUDY Color YELLOW Glucose NEG Bilirubin NEG Ketones ANGELICA SP Grav <1.005 Blood NEG PH 5.5 Protein NEG Urobil 0.2 Nitrite NEG Leukocytes (Fma/CMC/Centrex) LARGE Hyaline - /Lpf Granular - /Lpf WBC (Fma,Centrex) 10-15 RBC - Mucus - /Lpf Epith LARGE AMT /Lpf Bacteria TRACE /Hpf Amorphous MOD AMT /Lpf Crystals, Fluid (Fma/CMC/CTX) - Z#Comments NOT CLEAN CATCH Laboratory test finding 10/27/2010 Vitamin D, 25 Oh 46.9 ng/mL 32.0- 100.0 33 Lipid Profile 10/27/2010 Cholesterol 194 mg/dL 120-200 HDL 38 mg/dL 30-85 Triglycerides 182 mg/dL 30-200 HDL Risk Factor 5.2 CALC High 0.0-4.0 LDL (Calculated) 120 CALC 0-129 VLDL (Calculated) 36 mg/dL 0-50 Basic Metabolic Profile 10/27/2010 BUN 11 mg/dL 6-26 Calcium 9.3 mg/dL 8.6-10.2 Chloride 102 mEq/L 94-112 Creatinine 0.8 mg/dL 0.6-1.4 Carbon Dioxide 22 mEq/L 21-32 Glucose 99 mg/dL 70-105 Sodium 141 mEq/L 134-149 Potassium 4.7 mEq/L 3.6-5.5 BUN/Creat Ratio 13.3 Calc 8.0-36.0 Laboratory test 10/27/2010 Thin Prep W/HPV(Lsil/AVTAR/Asc) SEE NOTE 34 finding CBC Electronic ([facility]) 10/27/2010 WBC 6.3 3.6-9.6 RBC 4.81 3.90-5.70 Hemoglobin (Fma/CMC/CTX) 13.9 g/dL 12.1 - 17.2 Hematocrit (Fma/CMC/CTX) 40.5 % 36.1 - 50.3 Platelets 342 10^3/ul 150-400 Lymph% 30.0 20.5-51.1 Mixed% 3.5 Neutrophils % 66.5 Mean Corpuscular Vol 84 82.2-97.4 Mean Corpuscular Hemoglobin 28.8 27.6-33.3 Mean Corpuscular Hemo Concen 34.3 32.0-36.0 RDW 11.8 11.6-13.7 Mean Platelet Volume 7.7 6.5-11.0 Urine (a) 03/14/2010 SP Grav 1.025 Urine, (Fma/CMC/CTX) NEGATIVE Ua - Micro (a) 03/14/2010 Appearance SLIGHTLY CLOUDY Color YELLOW Glucose NEG Bilirubin NEG Ketones NEG SP Grav 1.025 Blood TRACE-LYSED PH 5.5 Protein NEG Urobil 0.2 E.U./dL Nitrite NEG Leukocytes (Fma/CMC/Centrex) TRACE Hyaline - /Lpf Granular - /Lpf WBC (Fma,Centrex) 2-3 RBC 2-3 Mucus - /Lpf Epith 1+ /Lpf Bacteria 1+ /Hpf Amorphous - /Lpf Crystals, Fluid (Fma/CMC/CTX) - Z#Comments - Comprehensive Metabolic Prof 03/14/2010 Albumin 4.2 g/dL 3.8-5.5 Alk. Phos. 45 U/L 30-110 Alt (SGPT) 13 U/L 7-35 Ast (Sgot) 13 U/L 5-34 BUN 13 mg/dL 6-26 Calcium 9.7 mg/dL 8.6-10.2 Chloride 100 mEq/L 94-112 Creatinine 0.8 mg/dL 0.6-1.4 Carbon Dioxide 23 mEq/L 21-32 Glucose 100 mg/dL 70-105 Sodium 137 mEq/L 134-149 Total Bilirubin 0.4 mg/dL 0.2-1.3 Total Protein 7.0 g/dL 6.3-8.1 Potassium 4.1 mEq/L 3.6-5.5 Globulin 2.8 g/dL 2.0-4.8 A/G Ratio 1.5 Calc 0.6-2.2 BUN/Creat Ratio 16.6 Calc 8.0-36.0 Laboratory test 03/14/2010 Urine Culture No significant g 35 finding <SEE NOTE> Laboratory test 07/10/2009 Thin Prep SEE NOTE 36 finding W/HPV(Lsil/AVTAR/A sc) Laboratory test 07/10/2009 Vitamin D, 25 Oh 29.5 ng/mL Low 32.0-100. 37 finding 0 Laboratory test 07/10/2009 TSH 2.41 mIU/L 0.50-6.00 finding Cholesterol 199 mg/dL 120-200 HDL 38 mg/dL 30-85 Ua - Micro (Fma) 07/10/2009 Appearance clear Color yellow Glucose, Urine (Fma/CMC/CTX) - Bilirubin - Ketones - SP Grav 1.020 Blood - PH 7.0 Protein - Urobil 0.2 Nitrite - Leukocytes (Fma/CMC/Centrex) trace Hyaline - /Lpf Granular - /Lpf WBC (Fma,Centrex) 4-6 RBC 3-5 Mucus (Fma/CBC/Centrex) - /Lpf Epith mod /Lpf Bacteria trace /Hpf Amorphous (Fma/CMC/Centrex) - /Lpf Crystals, Fluid (Fma/CMC/CTX) - Z#Comments not clean catch 1 1SST 2 Negative <0.91 Equivocal 0.91 - 1.09 Positive >1.09 3 Negative <0.80 Equivocal 0.80 - 1.19 Positive >1.19 IgM levels may peak at 3-6 weeks post infection, then gradually decline. 4 Negative <0.91 Equivocal 0.91 - 1.09 Positive >1.09 5 Negative <0.80 Equivocal 0.80 - 1.19 Positive >1.19 IgM levels may peak at 3-6 weeks post infection, then gradually decline. 6 1 aptima 7 Calculate total score by adding the 3 individual bacterial vaginosis (BV) marker scores together. Total score is interpreted as follows: Total score 0-1: Indicates the absence of BV. Total score 2: Indeterminate for BV. Additional clinical data should be evaluated to establish a diagnosis. Total score 3-6: Indicates the presence of BV. This test was developed and its performance characteristics determined by [employer]. It has not been cleared or approved by the Food and Drug Administration. The FDA has determined that such clearance or approval is not necessary. 8 Verified by repeat analysis 9 This test was developed and its performance characteristics determined by [employer]. It has not been cleared or approved by the Food and Drug Administration. The FDA has determined that such clearance or approval is not necessary. 10 SEE RESULT BELOW Name: EVENS MIGUEL : [address]: Viktor Rdz MD Acct: [id number] Unit: [id number] AGE: 29 Location: [facility] Re11/26/14 SEX: F Status: DEP ER SPEC: [id number] GERBER: 11/26/14-22[address] [facility] [address]: Alisson Rdz NP REQ: [id number] RECD: 11/27/14 STATUS: LASHANDA NGUYEN DR: [facility] Francisca Mead MD _ SOURCE: URINE SPDESC: ORDERED: Urine Culture Procedure Result Verified Site Urine Culture Final 11/29/14- 09 ML Organism 1 NORMAL NIRMAL Solano Count >100,000 (Many) CFU/ML * ML - MAIN LAB (PSC1) . END OF REPORT * ML=Testing performed at Main Lab DEPARTMENT OF PATHOLOGY, [facility] [employer] [place], [place] [address] Joe Graves M.D. Director [facility] # [id number] 11 No Membrane Rupture 12 No Membrane Rupture 13 RUN DATE: 01/24/13 [facility] LAB LIVE PAGE 1 RUN TIME: [address] [facility] [employer] [place], [place] [address] Specimen Inquiry Name: EVENS MIGUEL : [address]: Willie Steinberg MD Acct: [id number] Unit: [id number] AGE: 27 Location: ED Re01/22/13 SEX: F Status: DEP ER SPEC: [id number] GERBER: 01/22/13 [facility] [address]: Wlilie Steinberg MD REQ: [id number] RECD: 01/22/13 STATUS: LASHANDA NGUYEN DR: Francisca Mead MD _ SOURCE: URINE SPDESC: ORDERED: Urine Culture Procedure Result Verified Site Urine Culture Final 01/24/13- 941 ML Organism 1 NORMAL NIRMAL [place] Count 75-100,000 (Many) CFU/ML END OF REPORT * ML=Testing performed at Main Lab DEPARTMENT OF PATHOLOGY, [address] [place] [address] Joe Graves M.D. Director [facility] Permit #[id number] Males: < 5.0 miu/ml Non females < 5.0 miu/ml Approx gestational age approx HCG range 0-1 week < 5.0-50 1-2 weeks 50-500 2-3 weeks 100-5000 3-4 weeks 500-10,000 1-2 months 10,000-200,000 2-3 months 15,000-100,000 Please note: The intended use of this assay is the quantitative determination of HCG in human serum or plasma for the early detection of . These assays should not be used to diagnose any condition unrelated to . If an HCG level is inconsistent with, or unsupported by, clinical evidence, results should be confirmed by an alternate HCG method. 15 Because ethnic data is not always readily available, this report includes an eGFR for both -Americans and non- Americans. The National Kidney Disease Education Program (NKDEP) does not endorse the use of the MDRD equation for patients that are not between the ages of 18 and 70, are , have extremes of body size, muscle mass, or nutritional status, or are non- or non-. According to the National Kidney Foundation, irrespective of diagnosis, the stage of the disease is based on the level of kidney function: Stage Description GFR(mL/min/1.73 m(2)) 1 Kidney damage with normal or decreased GFR 90 2 Kidney damage with mild decrease in GFR 60-89 3 Moderate decrease in GFR 30-59 4 Severe decrease in GFR 15-29 5 Kidney failure <15 (or dialysis) 16 Mixed urethral nirmal present. Repeat may be indicated. 17 1SST 18 . Less than 5: Negative for 6 - 25: Indeterminate for , and Suggest recollection in 72 hrs Greater than 25: Positive for . NORMAL : Gestational Age HCG range (mIU/mL) 2-3 Weeks 100 - 1,000 3-4 Weeks 500 - 6,000 1-2 Months 5,000 - 200,000 2-3 Months 10,000 - 100,000 2nd Trimester 3,000 - 50,000 3rd Trimester 1,000 - 50,000 . Please Note: This test methodology is limited to the early detection of . False results can occur due to, but not limited to, the presence of heterophilic antibodies, non-specific protein binding, altered forms of HCG, HCG-like substances, trophoblastic or non-trophoblastic neoplasms. . 19 Please note: The following may produce a false positive D Dimer test: - Rheumatoid factor greater than 60 IU/ml - Plasma hemoglobin greater than 0.05 gm/dl - Bilirubin greater than 50 mg/dl - Lipids greater than 1000 mg/dl - FDP greater than 20 ug/ml 20 Because ethnic data is not always readily available, this report includes an eGFR for both -Americans and non- Americans. The National Kidney Disease Education Program (NKDEP) does not endorse the use of the MDRD equation for patients that are not between the ages of 18 and 70, are , have extremes of body size, muscle mass, or nutritional status, or are non- or non-. According to the National Kidney Foundation, irrespective of diagnosis, the stage of the disease is based on the level of kidney function: Stage Description GFR(mL/min/1.73 m(2)) 1 Kidney damage with normal or decreased GFR 90 2 Kidney damage with mild decrease in GFR 60-89 3 Moderate decrease in GFR 30-59 4 Severe decrease in GFR 15-29 5 Kidney failure <15 (or dialysis) 21 Reference Range and Interpretation: TnI (ng/mL) Interpretation Less Than 0.06 ng/mL Not supportive of diagnosis of [place] 0.06 - 0.50 ng/mL Indeterminate: suggest serial studies if clinically indicated. Greater than 0.5 ng/mL Consistent with diagnosis of [place] 22 few hyphae noted; neg FADI whiff test 23 Mixed urethral nirmal present. Repeat may be indicated. 24 Female (Non-) 0 - 5 (Postmenopausal) 0 - 8 . Female () Weeks of Gestation 3 6 - 71 4 10 - 750 5 689 - 6068 6 158 - 81516 7 4578 -201011 8 52182 -439052 9 58586 -228490 10 25270 -971183 12 34279 -974302 14 53179 - 76440 15 99843 - 49677 16 3362 - 27839 17 1657 - 13590 18 2762 - 52976 Stevan ECLIA methodology 25 Please note: The following may produce a false positive D Dimer test: - Rheumatoid factor greater than 1400 IU/ml - Plasma hemoglobin greater than 0.5 gm/dl - Bilirubin greater than 18 mg/dl - Triglycerides greater than 1327 mg/dl - FDP greater than 10 ug/ml . 26 If is still suspected, please repeat test after 48 to 72 hours. . This test detects intact HCG only and is indicated for the early detection of . 27 Anion gap measurement may be of limited value in the presence of any alkalosis, especially in a combined acid base disorder. . 28 A metabolite of Naproxen, O-desmethylnaproxen, has been shown to interfere with the Jendrassik-Loxley method for measuring total bilirubin. Samples from patients who have taken Naproxen have shown spurious elevation in total bilirubin levels. 29 Because ethnic data is not always readily available, this report includes an eGFR for both -Americans and non- Americans. The National Kidney Disease Education Program (NKDEP) does not endorse the use of the MDRD equation for patients that are not between the ages of 18 and 70, are , have extremes of body size, muscle mass, or nutritional status, or are non- or non-. According to the National Kidney Foundation, irrespective of diagnosis, the stage of the disease is based on the level of kidney function: Stage Description GFR(mL/min/1.73 m(2)) 1 Kidney damage with normal or decreased GFR 90 2 Kidney damage with mild decrease in GFR 60-89 3 Moderate decrease in GFR 30-59 4 Severe decrease in GFR 15-29 5 Kidney failure <15 (or dialysis) 30 New Reference Range and Interpretation effective 02/17/2002 TnI (ng/ml) INTERPRETATION Less Than 0.06 ng/mL NOT SUPPORTIVE OF DIAGNOSIS OF [place] 0.06 - 0.50 ng/ml INDETERMINATE: SUGGEST SERIAL STUDIES IF CLINICALLY INDICATED. Greater than 0.5 ng/mL CONSISTENT WITH DIAGNOSIS OF [place] . 31 Recommended INR for Patients on Oral Anticoagulants Prophylaxis 2.0 - 3.0 Treatment of thrombosis 2.0 - 3.0 Prevention of embolism 2.0 - 3.0 Prevention of embolism from prosthetic heart valves 2.5 - 3.5 32 DIAGNOSIS,TREATMENT,AND THERAPY MUST BE BASED ON THE INR VALUE ALONE. 33 Recent studies consider the lower limit of 32.0 ng/mL to be a threshold for optimal health. Dayne BW. J Nutr. 2004;135(2):317-22. 34 [facility] [employer] DEPARTMENT OF PATHOLOGY or Extension 2611 COMPLAINT ADJUSTER CYTOLOGY REPORT PATIENT: EVENS MIGUEL : 1985 AGE: 25 Y SEX: F ACCT: [id number] PROCEDURE DATE: 10/27/2010 DATE RECEIVED: 10/28/2010 REQUESTING PHYSICIAN: JO MAGALLON MD LOCATION: [facility] [place] Case No. [id number] PATIENT DATA: [id number] SPECIMEN SUBMITTED: * * (HPVII) THIN PREP W/HPV (LSIL/ASC/AVTAR) * * ENDOCERVICAL RELEVANT HISTORY: LMP: 10/17/2010 Contraceptive: NUVARING Menarche: Y Prev.normal: 07/10/09 SPECIMEN ADEQUACY SATISFACTORY FOR EVALUATION, ENDOCERVICAL TRANSFORMATION ZONE COMPONENT PRESENT GENERAL CATEGORIZATION NEGATIVE FOR INTRAEPITHELIAL LESIONS OR MALIGNANCY INTERPRETATION/ RESULT PREDOMINANCE OF BACTERIA CONSISTENT WITH A SHIFT IN VAGINAL NIRMAL. RECOMMENDATIONS Thin Prep Pap tests are examined with an FDA approved location-guidance system. ADDITIONAL COPIES SENT TO: Screened/Rescreened Electronically Signed Sign Out Date/Time: by: by: ISHAN NICOLA JENNIFER, 10/28/2010 15:31 CT(ASCP) The Pap smear is a screening test designed to aid in the detection of premalignant and malignant conditions of the uterine cervix. It is not a diagnostic procedure and should not be used as the sole means of detecting cervical cancer. Both false-positive and false-negative reports do occur. Performed @ [facility] [employer], [address] [place] [id number] 35 No significant growth. 36 [employer] DEPARTMENT OF PATHOLOGY or Extension 8480 COMPLAINT ADJUSTER CYTOLOGY REPORT PATIENT: EVENS MARTINEZ : 1985 AGE: 24 Y SEX: F ACCT: [id number] PROCEDURE DATE: 07/10/2009 DATE RECEIVED: 07/12/2009 REQUESTING PHYSICIAN: JO MAGALLON MD LOCATION: [facility] [place] Case No. [id number] PATIENT DATA: [id number] SPECIMEN SUBMITTED: * * (HPVII) THIN PREP W/HPV (LSIL/ASC/AVTAR) * * ENDOCERVICAL RELEVANT HISTORY: LMP: 07/01/2009 Menarche: Y Contraceptive: CONDOMS Prev.normal: 2 YEARS SPECIMEN ADEQUACY SATISFACTORY FOR EVALUATION, ENDOCERVICAL TRANSFORMATION ZONE COMPONENT PRESENT GENERAL CATEGORIZATION NEGATIVE FOR INTRAEPITHELIAL LESIONS OR MALIGNANCY ADDITIONAL COPIES SENT TO: Screened/Rescreened by: Electronically Signed by: FEDERICO LEAL(ASCP) Signed Date/Time 07/15/2009 14:18 Thin Prep Pap tests are examined with an FDA-approved location-guidance system (78813). Performed @ [employer] [address] [place] [address] "" 37 Recent studies consider the lower limit of 32.0 ng/mL to be a threshold for optimal health. Oscar BW. J Nutr. 2004;135(2):317-22. Procedures Date CPT Code Description Status 06/01/2017 02245 Remove Intrauterine Device Completed 10/08/2015 10143 Pulse Oximetry Completed 04/24/2014 09887 Pulse Oximetry Completed Encounters Type Date Location Provider CPT E/M Dx Office Visit 06/08/2017 3:15p [place] [address] N93.9 R42 Office Visit 06/01/2017 6:00p Main Office KEVON Fiore 91871 R05 E66.9 K21.9 Z30.09 R21 B36.0 Z30.432 Office Visit 04/19/2017 9:45a [place] [address] J20.9 L23.9 Office Visit 04/16/2017 4:00p [facility] KEVON Fiore 76472 R05 E66.9 K21.9 Office Visit 02/01/2017 5:00p Main Office Shila Davis M.D. 70910 Z00.00 E66.9 G47.33 R20.0 A69.20 F41.9 Z23 H69.93 Office Visit 11/27/2016 10:30a [place] [address] S30.861D Office Visit 09/23/2016 4:40p [facility] Shila Davis M.D. 03466 F33.0 G44.209 J06.9 M62.00 Office Visit 08/05/2016 3:00p Main Office KEVON Mason 75929 J01.90 N76.0 Office Visit 06/16/2016 2:40p Main Office Shila Davis M.D. 73665 F33.0 G44.209 Office Visit 02/27/2016 5:20p Main Office Shila Davis M.D. 17341 F33.0 Office Visit 02/05/2016 4:30p [place] [address] M70.61 Office Visit 01/16/2016 5:00p Main Office Shila Davis M.D. 50351 Z00.01 F43.22 Office Visit 11/21/2015 9:45a [place] [address] M54.5 M54.2 M79.672 Y93.89 Y92.018 Office Visit 10/08/2015 6:45p Main Office Floresnp-C 58617 K64.8 R06.02 Z13.1 R21 Office Visit 08/14/2015 3:15p [facility] Reva Tejada, [facility] 44186 R29.4 Office Visit 07/15/2015 3:50p [facility] Office Shila Davis M.D. 87266 K64.8 Office Visit 04/24/2014 7:15p Main Office Floresnp-C 11923 465.8 Office Visit 03/14/2014 4:30p Main Office Shirley Gay np-C 44783 112.1 Office Visit 01/05/2014 9:30a Main Office Francisca Mead M.D. 54909 V74.1 Office Visit 12/18/2013 7:00p Main Office Shaila KrausMIRTA 49107 789.04 719.47 Office Visit 08/21/2013 11:30a Main Office Shirleydino Gay np-C 66195 388.72 723.1 Office Visit 01/03/2013 2:10p Main Office Francisca Mead M.D. 50749 V70.0 564.09 V22.2 791.7 Office Visit 12/07/2012 1:30p [facility] Office Reva Tejada, [facility] 14470 626.0 Office Visit 08/29/2012 8:20p Main Office Francisca Mead M.D. 45726 728.71 Office Visit 07/26/2012 5:30p Main Office Kiersten Moses Afnp-C 72459 616.10 724.8 626.0 Office Visit 06/14/2012 3:40p Main Office Francisca Mead M.D. 59075 461.8 278.00 Office Visit 06/07/2012 7:30p Main Office Kiersten Moses Afnp-C 75339 461.8 307.49 Office Visit 03/02/2012 9:45a Main Office Meredith Chi, [facility] 59507 626.0 V04.81 Office Visit 10/02/2011 11:40a Main Office Jo Magallon M.D. 19794 786.50 309.24 V25.09 692.9 780.57 Office Visit 08/20/2011 9:15a [facility] Kiersten Moses, Devika-C 37534 477.9 462 Office Visit 04/22/2011 2:10p [facility] Kyle Bejarano M.D. 11952 382.9 Office Visit 01/21/2011 8:40p Main Office Jo Magallon M.D. 86076 784.7 v04.81 Office Visit 01/07/2011 1:15p [facility] oJ Magallon M.D. 62811 V74.1 Office Visit 01/05/2011 11:00a [facility] Office Jo Magallon M.D. 52118 V65.49 278.00 v06.5 v74.1 Office Visit 10/27/2010 8:00a [facility] Office Jo Magallon M.D. 40471 V70.0 V25.09 110.5 477.0 268.9 791.7 Office Visit 07/14/2010 8:20a [facility] Office Jo Magallon M.D. 86816 V25.09 110.5 Office Visit 03/14/2010 2:40p Main Office Jo Magallon M.D. 66690 788.41 V04.81 Office Visit 02/26/2010 2:15p [facility] Reva Kelly 30088 448.1 MAimee Office Visit 09/11/2009 6:30p Main Office Jo Magallon M.D. 30874 V25.09 268.9 Office Visit 07/10/2009 6:00p Main Office Jo Magallon M.D. 02161 V70.0 V25.09 268.9 787.02 791.7 Office Visit 05/29/2009 1:30p Main Office Shirley Victor Hugo, Devika-C 23996 327.23 719.47 787.02 Plan of Care 06/08/2017 - Nissa Davis, NPN93.9 Abnormal uterine and vaginal bleeding, unspecifiedComments:CBC stat patient sent to [facility] with copy of this note, CBC and copy of today's CBChusband to drive patient, ambulance [id number] Dizziness and giddinessAllComments:~B_~U_Medication Management~b_~u_ Patient Understands medications she's taking? Yes No Are there Barriers to Adherence? Yes No Has the patient been asked about herbal supplements and therapies, and OTC meds? Yes No ~B_~U_Care Plan~b_~u_1. Patient has been queried about patient's goals/preferences and functional/ lifestyle goals at relevant visits. If relevant, describe: na2. Treatment goals as explained to the patient: above3. Are there barriers to meeting treatment goals? Yes No If Yes, please describe:4. Self-Management goals as described to the patient: Yes NoFollow up:As always, we strongly encourage a healthy diet and making physical activity a part of your every day life. If you have questions about how or where to start, please contact the office.
--- OUTSIDE RECORDS SUMMARY | 2017-06-08 17:09 | XMS REPORT ---
:1985 External Reference #:[id number] Author Organization [facility] Address [address] [place] [address] Phone [phone] Care Team Providers Name Role Phone Shila Davis M.D. Care Team Information Manager Hardware Unavailable Shila Davis M.D. Primary Care Physician Unavailable Payers Type Date Identification Numbers Payment Provider Subscriber Commercial Effective: Policy Number: BC/BS Of LEAH Francoiselijah Miguel 2016 [id number] PayID: [id number] [facility] [id number] [place] [address] Problems Date Description Provider Status Onset: 02/27/2016 [...] associates degree from [employer]. Getting Ba through [employer] on line. 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 day as needed Multi Adult Active Chewtabs 2 qd Unknown Gummies / Mirena (52 MG) Active IUD 20mcg/24H 2015 Unknown / R Methylprednisolon 04/16 Hx Tablets 4mg 1pack dose R05 Reva e pack, Terrell, - admin as COATING LINE WORKER 04/18 Benzonatate 08/05 Hx Capsules 100mg 1-2 by mouth - three 09/07 times day as needed for cough Amoxicillin/Clavu 08/05 Hx Tablets 875-125mg 20tab 1 by J01.90 Meredith lanate s mouth Arti, - twice a COATING LINE WORKER 09/07 day with food Sertraline HCL 01/15 Hx Tablets 50mg 30tab 1 by F33.0 s mouth [place], - every day M.D. 08/24 Anusol-HC 11/18 Hx Suppositor 25mg 12uni 1 per K64.8 y ts rectum Aurelia, - bid x 6 Afnp-C Anusol-HC 10/07 Hx Suppositor 25mg 12uni 1 per K64.8 y ts rectum Aurelia, - bid x 6 Afnp-C No Active 05/01 Hx Unknown Medications /2013 - 08/13 Benzonatate 04/24 Hx Capsules 200mg 30cap 1 by 465.8 s mouth Aurelia, - three Afnp-C 05/01 times day as needed for cough No Active 03/15 Hx Unknown Medications /2013 - 04/24 Fluconazole 03/14 Hx Tablets 150mg 1tabs [facility] x 1 Afnp-C 03/15 No Active 12/18 Hx Unknown Medications /2013 - 03/14 Amoxicillin 01/03 Hx Capsules 250mg 15cap 1 po tid 791.7 Francisca Vu s x 5 days [place], - M.D. 08/21 Nystatin 07/26 Hx Cream 393566Mel 30gm to apply 616.10 t/GM to Aurelia, - perineum Afnp-C 08/02 /labia/va ginal opening as directed bid x 7 days Amoxicillin 06/14 Hx Capsules 500mg 30cap 1 po tid 461.8 Francisca L. s x 10 d [place], - with M.D. 07/26 yogurt with 5 cultures. Fexofenadine HCL 08/19 Hx Tablets 180mg 30tab 1 po qd 477.9 s Aurelia, - Afnp-C 06/07 Amoxicillin 04/22 Hx Tablets 500mg 30tab 1 po tid 382.9 Wright A. s Avril Bejarano - 08/19 Astelin 10/27 Hx Solution 137mcg/Sp 1unit 2 sprays 477.0 Jo . ray s bid Sussymervin - M.D. 08/19 Vitamin D3 10/27 Hx 2000Unit 90uni 1 po qd 268.9 [facility] . ts Naun - M.DAntonino 01/05 Nuvaring 07/14 Hx Ring 0.12-0.01 1unit insert pv V25.09 Jo . 5mg/24HR s and leave Naun, - in for M.D. 08/19 weeks, remove for one week then insert new ring Ketoconazole 07/14 Hx Cream 2% 60gm apply to 110.5 Jo affected Naun, - areas of M.D. 04/22 skin Cipro 03/18 Hx Tablets 250mg 10tab 1 po bid Jo . s for 5 Naun, - days M.D. 07/14 Bactrim DS 03/14 Hx Tablets 800-160mg 10tab 1 po bid 788.41 Jo . s for 5 Naun, - days M.D. 07/14 Multivitamins 09/11 Hx Tablets 30tab 1 po qd [facility] 07/10 Hx Tablets 0.15-0.03 1pack 1 po qd V25.09 Jo . mg Naun - M.DAntonino 07/14 Cpap Mask 05/29 Hx 1unit nasal 327.23 s mask Victor Hugo, - Afnp-C 09/11 Ondansetron HCL Hx Tablets 4mg 20tab take one Unknown /0000 s tablet by - mouth 08/21 times a day as needed for nausea Complete Hx Tablets 14-0.4mg 30tab 1 po qd Unknown /0000 s - 12/18 Stool Softener Hx Tablets 1 po qd Unknown /0000 - 06/16 Medications Administered in Office Medication Date Status Form Strength Qnty SIG Indications Ordering Provider TB Intradermal Administered Injection Francisca Vu Test 014 Avril Mead TB Intradermal Administered Injection Jo Riggs 011 Avril Magallon TB Intradermal Administered Injection Jo Riggs 010 Avril Magallon Immunizations CPT Code Status Date Vaccine Reaction Lot # 55712 Given 02/01/2017 Influenza Vac, Quadrivalent, Sl[place] [id number] [address] Given 04/02/2014 DO Not Use Split Influenza Virus [facility] Vaccine 85383 Given 03/02/2012 Preservative free flu 3 yrs+ and older [id number] 07619 Given 01/21/2011 DO Not Use Split Influenza Virus [id number] Vaccine 81424 Given 01/05/2011 Tdap Tetanus, W Pertussis [id number] 25975 Given 03/14/2010 DO Not Use Split Influenza Virus [id number] Vaccine Vital Signs Date Vital Result Comment 06/01/2017 BP Systolic 112 mmHg BP Diastolic [...] Result H/L Range Note Complete Blood Count 02/06/2017 WBC 7.7 x10^3/UL 3.6-9.6 RBC 4.61 x10^6/UL 3.90-5.70 HGB 13.1 g/dL 12.1-17.2 HCT 40 % 36-50 MCV 86.0 fL 82.2-97.4 MCH 28.5 pg 27.6-33.3 MCHC 33.2 g/dL 33.0-35.5 RDW 14.5 % High 11.6-13.7 PLT 337 x10^3/UL 150-400 MPV 6.8 fL Low 7.4-10.4 Gran # 5.4 x10^3/UL 1.5-7.2 Lymph# 2.0 x10^3/UL 0.7-4.9 [place]umas# 0.3 x10^3/UL 0.1-0.9 Gran % 68.3 % 42.2-75.2 Lymph % 26.7 % 20.5-51.1 [place]% 5.0 % 1.7-9.3 Comprehensive Metabolic Prof 02/06/2017 [...] 3 Laboratory test finding 02/06/2017 Hemoglobin A1c (a) 5.7 % % 4.1-5.7 Lyme AB/Western Blot [...] 6 Laboratory test finding 10/08/2015 Hemoglobin A1c (a) 5.7 % 4.1-5.7 CBC Electronic ([facility]) 10/08/2015 WBC 8.4 3.6-9.6 RBC 4.94 3.90-5.70 [...] (Fma,CMC,CX) fadi:: ++ hyphae Ua - Micro (a) 12/18/2013 Appearance clear Color yellow Glucose neg [...] 13 Sensitivities Laboratory test 01/22/2013 Beta HCG 45454.0 MIU/ML High 0.0-5.0 14 finding Quantitative C [...] Color Yellow Urine Appearance Clear Urine Specific [place] 1.007 Low 1.010-1.030 Urine Esterase 3+ Negative Urine Nitrate Negative Negative Urine Urobilinogen Negative E.U./dL Negative Urine Protein Negative mg/dL Negative Urine pH 6.5 5-9 Urine Blood 3+ Negative Urine Ketones Negative mg/dL Negative Urine Bilirubin Negative Negative Urine Glucose Negative mg/dL Negative Laboratory test finding 01/22/2013 Activated Partial 32.8 seconds 22.18- 37.18 Thrombo Time Ua - Micro (a) 01/03/2013 Appearance clear Color yellow Glucose neg [...] 0 ng/mL 0-0.06 21 Ua - Micro (a) 07/26/2012 Appearance CLEAR Color YELLOW Glucose NEG [...] W/HPV(Lsil/AVTAR/Asc) SEE NOTE 34 finding CBC Electronic ([facility]) 10/27/2010 WBC 6.3 3.6-9.6 RBC 4.81 3.90-5.70 Hemoglobin (a/CMC/CTX) 13.9 g/dL 12.1 - 17.2 Hematocrit (Fma/CMC/CTX) 40.5 % 36.1 - 50.3 Platelets 342 10^3/ul 150-400 Lymph% 30.0 20.5-51.1 Mixed% 3.5 Neutrophils % 66.5 Mean Corpuscular Vol 84 82.2-97.4 Mean Corpuscular Hemoglobin 28.8 27.6-33.3 Mean Corpuscular Hemo Concen 34.3 32.0-36.0 RDW 11.8 11.6-13.7 Mean Platelet Volume 7.7 6.5-11.0 Urine ([facility]) 03/14/2010 SP Grav 1.025 Urine, (a/CMC/CTX) NEGATIVE Ua - Micro ([facility]) 03/14/2010 Appearance SLIGHTLY CLOUDY Color YELLOW Glucose NEG Bilirubin NEG Ketones NEG SP Grav 1.025 Blood TRACE-LYSED PH 5.5 Protein NEG Urobil 0.2 E.U./dL Nitrite NEG Leukocytes (a/CMC/[facility]) TRACE Hyaline - /Lpf Granular - /Lpf WBC ([facility]) 2-3 RBC 2-3 Mucus - /Lpf Epith 1+ /Lpf Bacteria 1+ /Hpf Amorphous - /Lpf Crystals, Fluid (a/CMC/CTX) - Z#Comments - Comprehensive Metabolic Prof 03/14/2010 [...] developed and its performance characteristics determined by [facility]. It has not been cleared or approved by the Food and Drug Administration. The FDA has determined that such clearance or approval is not necessary. 8 Verified by repeat analysis 9 This test was developed and its performance characteristics determined by [facility]. It has not been cleared or approved by the Food and Drug Administration. The FDA has determined that such clearance or approval is not necessary. 10 SEE RESULT BELOW Name: EVENS MIGUEL : [address]: Viktor Rdz MD Acct: [id number] Unit: [id number] AGE: 29 Location: [facility] Re11/26/14 SEX: F Status: DEP ER SPEC: [id number] GERBER: 11/26/[address] [facility] [address]: Alisson Rdz NP REQ: [id number] RECD: 11/27/149 STATUS: LASHANDA NGUYEN DR: [facility] Francisca Mead MD _ SOURCE: URINE SPDESC: ORDERED: Urine Culture Procedure Result Verified Site Urine Culture Final 11/29/14- 933 ML Organism 1 NORMAL NIRMAL [place] Count >100,000 (Many) CFU/ML * ML - MAIN LAB (PSC1) . END OF REPORT * ML=Testing performed at Main Lab DEPARTMENT OF PATHOLOGY, [facility] Snapsheet [place] [address] Joe Graves M.D. Director [facility] # [id number] 11 No Membrane Rupture 12 No Membrane Rupture 13 RUN DATE: 01/24/13 [facility] LAB LIVE PAGE 1 RUN TIME: [address] [facility] [employer] [place], [place] [address] Specimen Inquiry Name: EVENS MIGUEL : [address]: Willie Steinberg MD Acct: [id number] Unit: [id number] AGE: 27 Location: ED Re01/22/13 SEX: F Status: DEP ER SPEC: [id number] GERBER: 01/22/[address] [facility] [address]: Willie Steinberg MD REQ: [id number] RECD: 01/22/13 STATUS: COMP JBHR DR: Francisca Mead MD _ SOURCE: URINE SPDESC: ORDERED: Urine Culture Procedure Result Verified Site Urine Culture Final 01/24/13- 941 ML Organism 1 NORMAL NIRMAL [place] Count 75-100,000 (Many) CFU/ML END OF REPORT * ML=Testing performed at Main Lab DEPARTMENT OF PATHOLOGY, [address] [place] [address] Joe Graves M.D. Director [facility] Permit #[id number] 14 Males: < 5.0 miu/ml Non females [...] 0.06 ng/mL Not supportive of diagnosis of MN 0.06 - 0.50 ng/mL Indeterminate: suggest serial studies if clinically indicated. Greater than 0.5 ng/mL Consistent with diagnosis of MN 22 few hyphae noted; neg FADI whiff test 23 Mixed urethral nirmal present. Repeat may be indicated. 24 Female (Non-) 0 - 5 (Postmenopausal) 0 - 8 . Female () Weeks of Gestation 3 6 - 71 4 10 - 750 5 824 - 9755 6 144 - 15236 7 2900 -503978 8 02144 -353184 9 76047 -260564 10 80242 -181601 12 09690 -301618 14 24024 - 30886 15 15837 - 48055 16 8726 - 74973 17 1764 - 22009 18 8481 - 60816 Stevan ECLIA methodology 25 Please note: The [...] has been shown to interfere with the Jendrassik-Mike method for measuring total bilirubin. Samples from [...] 0.06 ng/mL NOT SUPPORTIVE OF DIAGNOSIS OF MN 0.06 - 0.50 ng/ml INDETERMINATE: SUGGEST SERIAL STUDIES IF CLINICALLY INDICATED. Greater than 0.5 ng/mL CONSISTENT WITH DIAGNOSIS OF MN . 31 Recommended INR for Patients on [...] be a threshold for optimal health. Dayne GORMAN. J Nutr. 2005 Jun;135(2):317-22. 34 [employer]. DEPARTMENT OF PATHOLOGY or Extension [address] [employer] CYTOLOGY REPORT PATIENT: EVENS MIGUEL : 1985 AGE: 25 Y SEX: F ACCT: [id number] PROCEDURE DATE: 10/27/2010 DATE RECEIVED: 10/28/2010 REQUESTING PHYSICIAN: JO MAGALLON MD LOCATION: [facility] Case No. [id number] PATIENT DATA: [id number] SPECIMEN SUBMITTED: * * (HPVII) THIN PREP [...] Signed Sign Out Date/Time: by: by: ISHAN RODRIGUEZ, 10/28/2010 15:31 CT(ASCP) The Pap smear is a screening test designed to aid in the detection of premalignant and malignant conditions of the uterine cervix. It is not a diagnostic procedure and should not be used as the sole means of detecting cervical cancer. Both false-positive and false-negative reports do occur. Performed @ [employer] [address] [place] [address] 35 No significant growth. 36 [employer]. DEPARTMENT OF PATHOLOGY or Extension [address] [employer] CYTOLOGY REPORT PATIENT: EVENS MARTINEZ : 1985 AGE: 24 Y SEX: F ACCT: [id number] PROCEDURE DATE: 07/10/2009 DATE RECEIVED: 07/12/2009 REQUESTING PHYSICIAN: JO MAGALLON MD LOCATION: [facility] Case No. [id number] PATIENT DATA: [id number] SPECIMEN SUBMITTED: * * (HPVII) THIN PREP [...] are examined with an FDA-approved location-guidance system (77905). Performed @ [facility], [employer] [address] [place] [address] "" 37 Recent studies consider the lower limit of 32.0 ng/mL to be a threshold for optimal health. Dayne BW. J Nutr. 2004;135(2):317-22. Procedures Date CPT Code Description Status 10/08/2015 30886 Pulse Oximetry Completed 04/24/2014 00387 Pulse Oximetry Completed Encounters Type Date Location Provider CPT E/M Dx Office Visit 04/19/2017 9:45a [place] [address] J20.9 L23.9 Office Visit 04/16/2017 4:00p [facility] KEVON Fiore 79462 R05 E66.9 K21.9 Office Visit 02/01/2017 5:00p Main Office Shila Davis M.D. 89110 Z00.00 E66.9 G47.33 R20.0 A69.20 F41.9 Z23 H69.93 Office Visit 11/27/2016 10:30a [place] [address] S30.861D Office Visit 09/23/2016 4:40p [facility] Shila Davis M.D. 83023 F33.0 G44.209 J06.9 M62.00 Office Visit 08/05/2016 3:00p Main Office KEVON Mason 23346 J01.90 N76.0 Office Visit 06/16/2016 2:40p Main Office Shila Davis M.D. 06823 F33.0 G44.209 Office Visit 02/27/2016 5:20p Main Office Shila Davis M.D. 82287 F33.0 Office Visit 02/05/2016 4:30p Main Office Shaila Kraus MIRTA 55828 M70.61 Office Visit 01/16/2016 5:00p Main Office Shila Davis M.D. 01966 Z00.01 F43.22 Office Visit 11/21/2015 9:45a Main Office Shaila Kraus MIRTA 86831 M54.5 M54.2 M79.672 Y93.89 Y92.018 Office Visit 10/08/2015 6:45p Main Office Kiersten Moses Feliciamirta-C 09234 K64.8 R06.02 Z13.1 R21 Office Visit 08/14/2015 3:15p [facility] KEVON Fiore 71903 R29.4 Office Visit 07/15/2015 3:50p [facility] Shila Davis M.D. 96111 K64.8 Office Visit 04/24/2014 7:15p Main Office Kiersten MosesDevika-C 89096 465.8 Office Visit 03/14/2014 4:30p Main Office Shirley Princegisele Afmirta-C 50443 112.1 Office Visit 01/05/2014 9:30a Main Office Francisca Mead M.D. 57911 V74.1 Office Visit 12/18/2013 7:00p Main Office Shaila KrausMIRTA 96671 789.04 719.47 Office Visit 08/21/2013 11:30a Main Office Devika Gross-C 55837 388.72 723.1 Office Visit 01/03/2013 2:10p Main Office Francisca Mead M.D. 70193 V70.0 564.09 V22.2 791.7 Office Visit 12/07/2012 1:30p [facility] KEVON Fiore 54495 626.0 Office Visit 08/29/2012 8:20p Main Office Francisca Mead M.D. 93535 728.71 Office Visit 07/26/2012 5:30p Main Office Floresmirta-C 31739 616.10 724.8 626.0 Office Visit 06/14/2012 3:40p Main Office Francisca Mead M.D. 72527 461.8 278.00 Office Visit 06/07/2012 7:30p Main Office Floresmirta-C 66635 461.8 307.49 Office Visit 03/02/2012 9:45a Main Office Meredith Chi [facility] 85484 626.0 V04.81 Office Visit 10/02/2011 11:40a Main Office Jo Magallon M.D. 34513 786.50 309.24 V25.09 692.9 780.57 Office Visit 08/20/2011 9:15a [facility] Kiersten MosesDevika-C 73169 477.9 462 Office Visit 04/22/2011 2:10p [facility] Kyle Bejarano M.D. 47196 382.9 Office Visit 01/21/2011 8:40p Main Office Jo Magallon M.D. 01233 784.7 v04.81 Office Visit 01/07/2011 1:15p [facility] Jo Magallon M.D. 53938 V74.1 Office Visit 01/05/2011 11:00a [facility] Office Jo Magallon M.D. 71266 V65.49 278.00 v06.5 v74.1 Office Visit 10/27/2010 8:00a [facility] Office Jo Magallon M.D. 05293 V70.0 V25.09 110.5 477.0 268.9 791.7 Office Visit 07/14/2010 8:20a [facility] Jo Magallon M.D. 76087 V25.09 110.5 Office Visit 03/14/2010 2:40p Main Office Jo Magallon M.D. 40823 788.41 V04.81 Office Visit 02/26/2010 2:15p [facility] Reva Kelly, 07821 448.1 M.DAntonino Office Visit 09/11/2009 6:30p Main Office Jo Magallon M.D. 30354 V25.09 268.9 Office Visit 07/10/2009 6:00p Main Office Jo Magallon M.D. 78192 V70.0 V25.09 268.9 787.02 791.7 Office Visit 05/29/2009 1:30p Main Office Shirley Gay, Devika-Jessie 48263 327.23 719.47 787.02 Plan of Care 06/01/2017 - Reva Tejada, [id number] CoughComments:Failing this, you need to see ENTE66.9 Obesity, yazjyblhunaG21.9 Gastro-esophageal reflux disease without esophagitisComments:Take famotidine twice daily for the next 3-4 weeksAdd allergy treatment--adam, claritin, zyrtec, it matters notZ30.09 Encounter for oth general coun and advice on aqdshndqantmfC11 Rash and other nonspecific skin eruptionComments:zeasorb and the treatment as discussed call JEAN if condition changes/worsens in any wayB36.0 Pityriasis versicolorAllComments:~B_~U _Medication Management~b_~u_ Patient Understands medications he 's taking? Yes No Are there Barriers to Adherence? Yes No Has the patient been asked about herbal supplements and therapies, and OTC meds? Yes No
--- NOTE | 2017-06-08 18:26 | ED ---
GI/ HPI - HPI Summary HPI Summary: 31 female presents to ED, sent by PCP to check labs and get US after experiencing 1 week of heavy bleeding after having her IUD removed 1 week ago. Patient states she began her menstrual cycle the day before having her IUD removed by PCP however ever since it was removed, without complication, she has been having increased heavy vaginal bleeding. The last 2-3 days being much worse and is passing large sized clots. Bleeding through 1 super pad every hour. Patient states when she changes positions quickly she does feel lightheaded however has not passed out. Denies concern for STDs. No itching, other vaginal discharge or urinary symptoms. Patient denies abdominal pain, some minor intermittent cramping however tis comfortable at this time. Normal bowel movements, no fever. No other complaints. PMHx GERD. - History of Current Complaint Chief Complaint: EDVaginalBleeding Time Seen by Provider: 06/08/17 18:25 Stated Complaint: VAG BLEEDING Hx Obtained From: Patient Hx Last Menstrual Period: IUD removed 1 week ago Onset/Duration: Started Weeks Ago - 1, Still Present, Worse Since Timing: Constant Severity: Mild Current Severity: Moderate Number of Pads per Hour: 1 Pain Intensity: 0 Location of Pain: Suprapubic - mild to minimal intermittently Pain Characteristics: Cramping Associated Signs and Symptoms: Negative: New Sexual Partner, UTI Symptoms Additional Signs & Symptoms: Positive: Vaginal Bleeding, - 2, Para - 2, First Day of Last Menstral Period - 05/31/17, IUD - removed 1 week ago. Negative : STD Aggravating Factor(s): Nothing Alleviating Factor(s): Nothing - Allergy/Home Medications Allergies/Adverse Reactions: Allergies Allergy/AdvReac Type Severity Reaction Status Date / Time No Known Allergies Allergy Verified 08/03/16 15:13 PMH/Surg Hx/FS Hx/Imm Hx Endocrine/Hematology History: Denies: Hx Diabetes, Hx Thyroid Disease Cardiovascular History: Denies: Hx Hypertension Respiratory History: Reports: Hx Sleep Apnea, Other Respiratory Problems/ Disorders - SLEEP APNEA W/ CPAP X 3 WKS Denies: Hx Asthma, Hx Chronic Obstructive Pulmonary Disease (COPD) GI History: Reports: Other GI Disorders - constant nausea Denies: Hx Ulcer Musculoskeletal History: Reports: Other Musculoskeletal History - Plantars Fasciitis Denies: Hx Rheumatoid Arthritis, Hx Osteoporosis Sensory History: Reports: Hx Contacts or Glasses Opthamlomology History: Reports: Hx Contacts or Glasses Neurological History: Reports: Hx Headaches - Surgical History Surgery Procedure, Year, and Place: WISDOM TEETH EXTRACTION - Immunization History Immunizations Up to Date: Yes Infectious Disease History: No Infectious Disease History: Denies: Hx Hepatitis, Hx Human Immunodeficiency Virus (HIV), Traveled Outside the [place] in Last 30 Days - Family History Known Family History: Positive: Cardiac Disease, Diabetes Family History: R & n/C - Social History Alcohol Use: None Hx Substance Use: No Substance Use Type: Reports: None Hx Tobacco Use: No Smoking Status (MU): Never Smoked Tobacco Have You Smoked in the Last Year: No Review of Systems Constitutional: Negative Cardiovascular: Negative Respiratory: Negative Positive: other - vaginal bleeding Skin: Negative All Other Systems Reviewed And Are Negative: Yes Physical Exam Triage Information Reviewed: Yes Vital Signs On Initial Exam: Initial Vitals Temp Pulse Resp BP Pulse Ox 99 F 78 18 125/77 100 06/08/17 16:54 06/08/17 16:54 06/08/17 16:54 06/08/17 16:54 06/08/17 16:54 Vital Signs Reviewed: Yes Appearance: Positive: Well-Appearing, No Pain Distress, Well-Nourished Skin: Positive: Warm, Skin Color Reflects Adequate Perfusion, Dry. Negative: Cold, Cyanosis @, Pale, Erythema @ Head/Face: Positive: Normal Head/Face Inspection Eyes: Positive: Conjunctiva Clear ENT: Positive: Pharynx normal Neck: Positive: Supple Respiratory/Lung Sounds: Positive: Clear to Auscultation, Breath Sounds Present. Negative: Rales, Rhonchi, Wheezes Cardiovascular: Positive: Normal, RRR, Pulses are Symmetrical in both Upper and Lower Extremities. Negative: Murmur, Rub Abdomen Description: Positive: Nontender, Soft Bowel Sounds: Positive: Present Pelvic Exam: Positive: active bleeding, other - deferred pelvic as she already had one today by PCP Musculoskeletal: Positive: Normal Neurological: Positive: Normal, Sensory/Motor Intact, Alert, Oriented to Person Place, Time Diagnostics - Vital Signs Vital Signs Temp Pulse Resp BP Pulse Ox 06/08/17 16:54 99 F 78 18 125/77 100 - Laboratory Result Diagrams: 06/08/17 18:30 06/08/17 18:30 Lab Statement: Any lab studies that have been ordered have been reviewed, and results considered in the medical decision making process. - Ultrasound No standard instances Ultrasound Interpretation: Positive (See Comments) - Complex fluid in the endometrium. No adnexal masses are noted. Ultrasound Interpretation Completed By: Radiologist Re-Evaluation - Re-Evaluation First Eval Re-Evaluation Time: 20:00 Change: Unchanged - feeling fine without complaints, no pain. still bleeding. updated on labs and imaging. aware of current plan. GIGU Course/Dx - Course Course Of Treatment: labs obtained and normal h&g, negative Hcg, labs unremarkable. US obtained and showed complex fluid in endometrium, bleeding. patient is experiencing menorrhagia after having IUD removed recently. No other concerns/complaints. Spoke with Dr Petit at 8pm who stated patient can begin OCP to help control bleeding and hormones after IUD removed or just take naproxen. Marisabel recommended orthotricycline. Patient wanted to being OCP. Follow up with PCP. Also given naproxen. Continue at home. Aware of worsening signs and symptoms. Normal vitals and normal PE. No concern for other etiolgoy at this time. Patient deferred pelvic due to no need for cutlures, concerns and already had completed earlier today at PCP, prior to ED. - Diagnoses Differential Diagnoses - Female: Other - dysmennorhea, menorrhagia, vaginal bleeding, dysfunctional vaginal bleeding, IUD removal Provider Diagnoses: Vaginal bleeding, Menorrhagia Discharge - Discharge Plan Condition: Stable Disposition: HOME Prescriptions: Norgestimate-Eth Estradiol(NF) [Ortho Tri-Cyclen (NF)] 1 tab PO DAILY #10 tab Patient Education Materials: Dysfunctional Uterine Bleeding (ED), Menorrhagia ( ED) Referrals: Shila Davis MD [Primary Care Provider] - Homero Petit MD [Medical Doctor] - Additional Instructions: Take prescribed medication as directed to help with controlling hormones after IUD removal. Encourage use of naproxen/aleve to help with symptoms. Encourage increasing fluids and iron supplementation/iron rich foods. Follow up with PCP and OBGYN for re-check and re-evaluation. Any new or worsening signs/symptoms please seek medical attention promptly, as discussed.
[2017-06-08 18:50] LABS: ABS Basophils 0.1 10^3/ul (0-0.2); ABS Eosinophils 0.1 10^3/ul (0-0.6); ABS Lymphocytes 3.1 10^3/ul (1.0-4.8); ABS Monocytes 0.6 10^3/ul (0-0.8); ABS Neutrophils 7.1 10^3/ul (1.5-7.7); ABS Nucleated RBC 0 10^3/ul; Eosinophil % 0.9 % (0-6); Hematocrit 39 % (35-47); Hemoglobin 13.1 g/dl (12.0-16.0); Mean Corpuscular HGB Conc 34 g/dl (31-36); Mean Corpuscular Hemoglobin 28 pg (27-31); Mean Corpuscular Volume 84 fL (80-97); Mean Platelet Volume 8 um3 (7.4-10.4); Nucleated Red Blood Cells % 0; Platelet Count 332 10^3/ul (150-450); Red Blood Count 4.65 10^6/ul (4.0-5.4); Red Cell Distribution Width 14 % (10.5-15); White Blood Count 10.9 10^3/ul (3.5-10.8)
[2017-06-08 19:10] LABS: INR 0.85 (0.77-1.02)
--- NOTE | 2017-06-08 19:35 | RAD ---
Indication: Vaginal bleeding. Real-time sonography of the pelvis was performed utilizing transabdominal and endovaginal technique. Transabdominally the uterus measures 9.9 x 4.4 x 5.2 cm. Endometrial echo measures 4 mm. The right ovary measures 3.6 x 1.9 x 2.2 cm. Left ovary measures 3.1 x 2.1 x 2.5 cm. Endovaginal ultrasound was then performed. Endovaginally the uterus measures 9.3 x 3.9 x 5.4 cm. Endometrial echo measures 5 mm with complex fluid within the endometrial cavity. The right ovary measures 3.5 x 2.2 x 2.1 cm. Left ovary measures 3.5 x 1.9 x 2.5 cm. Doppler interrogation demonstrates flow in both ovaries. IMPRESSION: Complex fluid in the endometrium. No adnexal masses are noted.
[2017-06-08] MEDS ORDERED: NS 0.9% 1000 ML* 1,000 ML IV ONE (19:55)
[2017-06-08] MEDS ORDERED: Naproxen TAB* 250 MG PO ONE (20:16)
[2017-06-08 20:28] VITALS: BP 122/80
== END 2017-06-08 20:27 | disposition home or self-care (01) ==
LOC: ED 16:38
DX: N92.0 Excessive and frequent menstruation with regular cycle (principal)
CPT/HCPCS: 36415; 76830; 76856; 80053; 83605; 84702; 85025; 85610; 85730; 99283; A9270-GY

== ENCOUNTER 2017-12-05 19:05 | Emergency (ER) | payer BC ==
--- OUTSIDE RECORDS SUMMARY | 2017-12-05 19:11 | XMS REPORT ---
:1985 External Reference #:[id number] Author Organization [facility] Address [address] [place] [address] Phone [phone] Care Team Providers Name Role Phone Reva Tejada SALES FACILITATOR Care Team Information Alpine Guide Unavailable Ryan MEDRANO, Shila Primary Care Physician Unavailable Payers Type Date Identification Numbers Payment Provider Subscriber Commercial Policy Number: [id number] [facility] [place] PayID: [id number] [address] [address] UMAIR Jin [address] [employer]ig[employer] Part B Expires: 2017 Policy Number: [facility] [id number] [facility] PayID: [id number] [address] [address] UMAIR Jin [address] Problems Date Description Provider Status Onset: 05/08/2011 Dysfunction of eustachian tube Erickson Cordero MD Active Onset: 05/08/2011 Epistaxis Erickson Cordero MD Active Onset: 09/30/2017 Dermal mycosis Erickson Cordero MD Active Onset: 09/30/2017 Hypertrophy of nasal turbinates Erickson Cordero MD Active Onset: 09/30/2017 Deviated nasal septum Erickson Cordero MD Active Onset: 09/02/2017 Chronic sinusitis Erickson Cordero MD Active Onset: 07/26/2017 Gastroesophageal reflux disease Erickson Cordero MD Active Onset: 07/26/2017 Obstructive sleep apnea syndrome Erickson Cordero MD Active Onset: 07/26/2017 Obesity Erickson Cordero MD Active Onset: 07/26/2017 Chronic rhinitis Erickson Cordero MD Active Family History Date Family Member(s) Problem(s) Comments General Diabetes General Hearing Loss Social History Type Date Description Comments 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 Cigarette Use Never Smoked Cigarettes Cigars Never Smoked Cigars Pipe Never Smoked A Pipe Smokeless Tobacco Never Used Smokeless Tobacco ETOH Use Currently rarely consumes alcohol Allergies, Adverse Reactions, Alerts Date Description Reaction Status Severity Comments 07/26/2017 steroids active 05/07/2011 NKDA inactive Medications Medication Date Status Form Strength Qnty SIG Indications Ordering Provider Fluticasone Active Suspension 50mcg/Act 16gm 2 puffs J31.0 Erickson Propionate 018 both ruperto Cordero MD once a day Famotidine Active Tablets 40mg 60tabs 40 mg K21.9 Erickson 018 twice a yifan Cordero MD Active Unknown Complete 000 Nuvaring Hx Unknown 000 - 018 Vital Signs Date Vital Result Comment 11/22/2017 Weight 230.00 lb Weight in kg's 104.328 Height 65 inches 5'5" Height in cm's 165.1 cm BMI (Body Mass Index) 38.3 kg/m2 09/02/2017 Weight 230.00 lb Weight in kg's 104.328 Height 65 inches 5'5" Height in cm's 165.1 cm BMI (Body Mass Index) 38.3 kg/m2 07/26/2017 Weight 230.00 lb Weight in kg's 104.328 Height 65 inches 5'5" Height in cm's 165.1 cm BMI (Body Mass Index) 38.3 kg/m2 Results Description No Information Procedures Date CPT Code Description Status 10/25/2017 04183 Prick Test Completed 05/07/2011 55232 Contol Nasal Hemorrhage, Anterior, Simple Completed Encounters Type Date Location Provider CPT E/M Dx Office Visit 11/22/2017 11:00a Ana,After 05/17/07 [place] [address] J31.0 G47.33 J34.2 E66.9 J34.3 Office Visit 09/30/2017 3:15p Ana,After 05/17/07 [place] [address] J31.0 G47.33 E66.9 J34.2 J34.3 B36.8 Office Visit 09/02/2017 3:00p Ana,After 05/17/07 [place] [address] E66.9 J31.0 G47.33 J32.9 Office Visit 07/26/2017 9:00a Ana,After 05/17/07 [place] [address] J31.0 E66.9 G47.33 K21.9 Office Visit 05/07/2011 9:30a Ana,After 05/17/07 [place] [address] [phone] Plan of Care 11/22/2017 - Erickson Cordero MDJ31.0 Chronic rhinitisComments:About 20 minutes was spent with the patient discussing her allergy findings control of the environment, and immunotherapy as an option of treatment alternatives septoplasty and submucosal resections would also be a complement to improving her symptoms she is going to continue on medical management forher allergies and recheck back as needed.G47.33 Obstructive sleep apnea (adult) (pediatric) J34.2 Deviated nasal kikujyE89.9 Obesity, gliwczpiaubL92.3 Hypertrophy of nasal turbinates
--- NOTE | 2017-12-05 20:21 | UC ---
Hip/Pelvis Pain - HPI Summary HPI Summary: This is evangelina Diallo documenting for attending Sean Aguirre MD. This patient is a 32 year old F presenting to [facility] with a chief complaint of right knee pain and right hip pain since a few days ago. The patient reports that she tripped over her sons training toilet today and fell hard on her hands and knees. The patient reports difficulty getting up after she fell and worsening of her hip pain since the fall. The patient rates the pain 5/10 in severity. Symptoms aggravated by movement. Symptoms alleviated by nothing. Patient reports difficulty moving. The patient notes she took ibuprofen earlier to help with the pain. The patient reports hx of pelvic issues after giving to her son. - History Of Current Complaint Chief Complaint: UCLowerExtremity Stated Complaint: HIP INJURY Time Seen by Provider: 12/05/17 20:00 Hx Obtained From: Patient Hx Last Menstrual Period: IUD removed 1 week ago Onset/Duration: Gradual Onset, Lasting Days, Still Present, Worse Since - today Timing: Constant Severity Initially: Mild Severity Currently: Mild Pain Intensity: 5 Pain Scale Used: 0-10 Numeric Location: Discrete At: - right knee, right hip Aggravating Factor(s): Movement Alleviating Factor(s): Nothing Associated Signs And Symptoms: Positive: Knee Pain - right knee pain - Allergies/Home Medications Allergies/Adverse Reactions: Allergies Allergy/AdvReac Type Severity Reaction Status Date / Time methylprednisolone Allergy Hives Verified 12/05/17 19:17 Home Medications: Home Medications Cetirizine* [ZyrTEC 10 MG TAB*] 10 mg PO BEDTIME 12/05/17 [History Confirmed ] l-Norgest/E.estradiol-E.estrad [Seasonique 0.15-0.03-0.01 Tab] 1 tab PO DAILY [History Confirmed 12/05/17] PMH/Surg Hx/FS Hx/Imm Hx - Additional Past Medical History Additional PMH: pelvic issues after childbirth - Surgical History Surgical History: Yes Surgery Procedure, Year, and Place: WISDOM TEETH EXTRACTION - Family History Known Family History: Positive: Cardiac Disease, Diabetes Family History: R & n/C - Social History Alcohol Use: Rare Substance Use Type: None Smoking Status (MU): Never Smoked Tobacco Have You Smoked in the Last Year: No - Immunization History Most Recent Influenza Vaccination: fall 2014 Most Recent Tetanus Shot: 04/2015 Most Recent Pneumonia Vaccination: n/a Review of Systems Constitutional: Negative - negative fever ENT: Negative - negative epistaxis Gastrointestinal: Negative - negative vomiting Musculoskeletal: Arthralgia - right knee pain, right hip pain All Other Systems Reviewed And Are Negative: Yes Physical Exam - Summary Physical Exam Summary: Appearance: Well-appearing, Well-nourished Skin: Warm Eyes: Normal ENT: Normal Neck: Supple, nontender Respiratory: Clear to auscultation Cardiovascular: Regular rate, regular rhythm. Normal S1, S2. Abdomen: Soft, nontender Musculoskeletal: Gait is mildly antalgic favoring the right hip and right knee, no numbness or tingling, neg TTP lumbar spine, no radiculopathy Neurological: Normal, A&Ox3 Psychiatric: Normal General: No acute distress Triage Information Reviewed: Yes Vital Signs: Initial Vital Signs Temp 97.2 F 12/05/17 19:11 Pulse 67 12/05/17 19:11 Resp 20 12/05/17 19:11 BP 119/80 12/05/17 19:11 Pulse Ox 80 12/05/17 19:11 Vital Signs Reviewed: Yes Diagnostics - Radiology Right Knee XR Xray Interpretation: Positive (See Comments) - Impression: small bony fragment lifted from mid-patella suggestive of fracture without avulsion Radiology Interpretation Completed By: ED Physician - Dr. Aguirre, pending official report Right Hip XR Xray Interpretation: Positive (See Comments) - Impression: joint narrowing between head of femur and inferior acetabulum Radiology Interpretation Completed By: ED Physician - Dr. Aguirre, pending official report Hip Injury Course/Dx - Course Course Of Treatment: XR of right hip- no fx but narrowing of joint space betweeen head of femur and inferior acetabulum- likely arthritis. XR of right knee- patellar fx, RICE, compression, pain control ortho follow up - Differential Dx/Diagnosis Provider Diagnoses: Right Patellar fracture. Right Hip arthritis Discharge - Sign-Out/Discharge Documenting (check all that apply): Patient Departure - Discharge Plan Condition: Stable Disposition: HOME Prescriptions: oxyCODONE/Acetamin 5/325 MG* [Percocet 5/325 TAB*] 1 tab PO Q8H PRN 3 Days #9 tab MDD 3 PRN Reason: Pain Patient Education Materials: Patellar Fracture (ED), Arthritis (ED) Referrals: Shila Davis MD [Primary Care Provider] - [facility] [Provider Group] Lucius Frazier MD [Medical Doctor] - Additional Instructions: Follow up with Dr. Frazier, orthopedist, and with Sports Medicine physical therapy. Return to with any new or worsening symptoms. - Billing Disposition and Condition Condition: STABLE Disposition: Home
[2017-12-05] MEDS ORDERED: HYDROcodone/ACETAMIN 5-325 MG* 1 TAB PO ONE (20:22)
[2017-12-05 21:24] VITALS: BP 119/56
--- NOTE | 2017-12-06 08:01 | RAD ---
INDICATION: Fall. Right hip pain COMPARISON: None TECHNIQUE: An AP view of the pelvis and AP views of the hip in neutral and abducted position were obtained FINDINGS: Bones: There are no acute bony findings. Joint spaces: The hips articulate normally. The joint spaces are preserved. SI joints/symphysis: The SI joints and symphysis are intact. Other: None IMPRESSION: NO ACUTE BONY FINDINGS
--- NOTE | 2017-12-06 08:02 | RAD ---
INDICATION: Fall. Right knee pain COMPARISON: None TECHNIQUE: AP, lateral, tunnel, and sunrise views were obtained. FINDINGS: There is no acute bony change. There is calcification or ossification near the insertion of the infrapatellar tendon. The knee articulates normally. There is no joint effusion. IMPRESSION: NO ACUTE BONY FINDINGS
== END 2017-12-05 22:13 | disposition home or self-care (01) ==
LOC: UCEAST 19:05
DX: S82.001A Unspecified fracture of right patella, initial encounter for closed fracture (principal); M13.851 Other specified arthritis, right hip; Z88.8 Allergy status to other drugs, medicaments and biological substances; W01.0XXA Fall on same level from slipping, tripping and stumbling without subsequent striking against object, initial encounter; Y92.9 Unspecified place or not applicable
CPT/HCPCS: 99212; G0463

== ENCOUNTER 2018-08-02 14:42 | Emergency (ER) | payer OTHER ==
--- NOTE | 2018-08-02 16:56 | ED ---
Lower Extremity - HPI Summary HPI Summary: Patient is a 33-year-old female who presents emergency department for right knee injury that occurred today at work. 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 Patient states she's had issues with her right knee in the past and recently finished physical therapy. Patient is able to ambulate with pain. Symptoms are mild in severity. Denies associated symptoms of numbness, tingling or weakness. - History of Current Complaint Chief Complaint: EDExtremityLower Stated Complaint: RIGHT KNEE PAIN FROM WORK INJURY Time Seen by Provider: 08/02/18 16:00 Hx Obtained From: Patient Hx Last Menstrual Period: IUD removed 1 week ago Pain Intensity: 6 - Allergies/Home Medications Allergies/Adverse Reactions: Allergies Allergy/AdvReac Type Severity Reaction Status Date / Time methylprednisolone Allergy Hives Verified 12/05/17 19:17 Home Medications: Home Medications Etonogest/Eth.estradiol (Nf) [Nuvaring Vaginal Ring] 1 dose VAGINAL MONTHLY [History Confirmed 08/02/18] Ferrous Sulfate TAB* 325 mg PO DAILY WITH MEAL 08/02/18 [History Confirmed 08/02] PMH/Surg Hx/FS Hx/Imm Hx Previously Healthy: Yes Endocrine/Hematology History: Denies: Hx Diabetes, Hx Thyroid Disease Cardiovascular History: Denies: Hx Hypertension, Hx Pacemaker/ICD Respiratory History: Reports: Hx Sleep Apnea, Other Respiratory Problems/ Disorders - SLEEP APNEA W/ CPAP X 3 WKS Denies: Hx Asthma, Hx Chronic Obstructive Pulmonary Disease (COPD) GI History: Reports: Other GI Disorders - constant nausea Denies: Hx Ulcer Musculoskeletal History: Reports: Other Musculoskeletal History - Plantars Fasciitis Denies: Hx Rheumatoid Arthritis, Hx Osteoporosis Sensory History: Reports: Hx Contacts or Glasses Denies: Hx Hearing Aid Opthamlomology History: Reports: Hx Contacts or Glasses Neurological History: Reports: Hx Headaches Psychiatric History: Denies: Hx Panic Disorder - ANXIETY - Surgical History Surgery Procedure, Year, and Place: WISDOM TEETH EXTRACTION Infectious Disease History: No Infectious Disease History: Denies: Hx Hepatitis, Hx Human Immunodeficiency Virus (HIV), Traveled Outside the [place] in Last 30 Days - Family History Known Family History: Positive: Cardiac Disease, Diabetes Family History: R & n/C - Social History Occupation: Employed Full-time Lives: With Family Alcohol Use: Rare Hx Substance Use: No Substance Use Type: Reports: None Hx Tobacco Use: No Smoking Status (MU): Never Smoked Tobacco Have You Smoked in the Last Year: No Review of Systems Positive: Other - right knee that radiates to hip Negative: Weakness, Paresthesia, Numbness All Other Systems Reviewed And Are Negative: Yes Physical Exam Triage Information Reviewed: Yes Vital Signs On Initial Exam: Initial Vitals Temp Pulse Resp BP Pulse Ox 98.5 F 92 18 126/82 97 08/02/18 14:47 08/02/18 14:47 08/02/18 14:47 08/02/18 14:47 08/02/18 14:47 Vital Signs Reviewed: Yes Appearance: Positive: Well-Appearing - Pt. sitting on bed in NAD. Skin: Positive: Warm, Dry Head/Face: Positive: Normal Head/Face Inspection Eyes: Positive: Normal, EOMI Neck: Positive: Supple Musculoskeletal: Positive: Other - Pain on palpation over right patella. No edema. No overlying erythema or increased warmth. No increased laxity. Pain with rotation of hip pain and with extension of knee. No breaks in skin. Neurological: Positive: Normal, CN Intact II-III Diagnostics - Vital Signs Vital Signs Temp Pulse Resp BP Pulse Ox 08/02/18 14:47 98.5 F 92 18 126/82 97 - Laboratory Lab Statement: Any lab studies that have been ordered have been reviewed, and results considered in the medical decision making process. Lower Extremity Course/Dx - Course Course Of Treatment: Knee and hip xray negative for acute findings per radiology. Results discussed. Advised ice and elevation. Activity as tolerated. Tylenol or motrin for pain as directed. F.u with PCP or ortho if pain persist. Pt. understands and agrees with plan. - Diagnoses Differential Diagnosis/HQI/PQRI: Positive: Fracture (Closed), Sprain, Strain Provider Diagnoses: Knee sprain Discharge - Sign-Out/Discharge Documenting (check all that apply): Patient Departure Patient Received Moderate/Deep Sedation with Procedure: No - Discharge Plan Condition: Good Disposition: HOME Patient Education Materials: Knee Sprain (ED) Forms: *Work Release Referrals: Lucius Frazier MD [Medical Doctor] - Shila Davis MD [Primary Care Provider] - Additional Instructions: Follow up with PCP or orthopedics if pain persist Ice and elevate intermittently Tylenol or Motrin for pain as directed Activity as tolerated Return to ER if symptoms change or worsen - Billing Disposition and Condition Condition: GOOD Disposition: Home
[2018-08-02 17:21] VITALS: BP 126/76
== END 2018-08-02 17:20 | disposition home or self-care (01) ==
LOC: ED 14:42
DX: S83.91XA Sprain of unspecified site of right knee, initial encounter (principal); W50.0XXA Accidental hit or strike by another person, initial encounter; Y92.9 Unspecified place or not applicable; Y99.0 Civilian activity done for income or pay; Z88.8 Allergy status to other drugs, medicaments and biological substances
CPT/HCPCS: 99282

== ENCOUNTER 2018-08-05 13:09 | Emergency (ER) | payer BC, OTHER ==
[2018-08-05 13:17] VITALS: BP 135/90
== END 2018-08-05 15:26 | disposition left against medical advice (07) ==
LOC: ED 13:09
DX: R07.9 Chest pain, unspecified (principal); Z53.21 Procedure and treatment not carried out due to patient leaving prior to being seen by health care provider

== ENCOUNTER 2018-08-28 13:33 | Emergency (ER) | payer BC ==
--- OUTSIDE RECORDS SUMMARY | 2018-08-28 13:38 | XMS REPORT | Continuity of Care Document ---
:1985 External Reference #:[id number] Author Name Nissa Davis NP Address [address] [facility] [address] Care Team Providers Name Role Phone Shila Davis M.D. Care Team Information Food Service Technician Unavailable Shila Davis M.D. Primary Care Physician Unavailable Payers Date Identification Numbers Payment Provider Subscriber Effective: 2016 Policy Number: [id number] /BS Of [facility] Evens Miguel PayID: [id number] [place] [id number] Advance Directives Description No Information Available Problems Active Problems Provider Date Mild recurrent major depression Shila Davis M.D. Onset: 02/27/2016 Resolved Problems Chest pain Jo Magallon M.D. Onset: 10/02/2011 Resolved: 07/15/2015 Contraception care management Jo Magallon M.D. Onset: 10/02/2011 Resolved: 07/15/2015 Contact dermatitis Jo Magallon M.D. Onset: 10/02/2011 Resolved: 07/15/2015 Sleep apnea Jo Magallon M.D. Onset: 10/02/2011 Resolved: 07/15/2015 Adjustment disorder with anxious mood Jo Magallon M.D. Onset: 10/02/2011 Resolved: 06/16/2016 Obstructive sleep apnea syndrome Jo Magallon M.D. Onset: 10/02/2011 Resolved: 06/16/2016 Constipation Francisca Mead M.D. Onset: 01/03/2013 Resolved: 06/16/2016 Family History Date Family Member(s) Observation Comments General No fam hx lung, colon, breast CA. Father Hypertension Father djd, sleep apnea, DM. : (2016) Mother due to Pulmonary after Gallbladder Embolus surgery Mother epilepsy, seizure free 20 yrs Number of Siblings Siblings:2. healthy. 1 sister, 1 brother. Social History Type Date Description Comments Sex Unknown Education Highest level of education completed is an associates degree from [employer]. Getting Ba through [employer] on line. 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 Seat Belt/Car Seat Always uses a seat belt Smoke Alarms There are smoke alarms in the house Allergies, Adverse Reactions, Alerts Active Allergies Reaction Severity Comments Date Methylprednisolone rash 04/19/2017 Inactive Allergies Nka 05/29/2009 NKDA 01/05/2011 Medications Active Medications SIG Qnty Indications Ordering Provider Date Feosol 1 by mouth twice a 60tabs [place] 06/08/2018 200(65Fe) mg day Terrell, EMERGENCY MEDICAL TECHNICIAN Tablets Nuvaring insert one ring 3units [place] 03/22/2018 vaginally, retain Terrell, EMERGENCY MEDICAL TECHNICIAN 0.12-0.015mg/24HR x 3 weeks, then Ring remove, allow withdrawal bleed, and reinsert new ring sun after menses Proair HFA 2 puffs every 4-6 8.500gm J20.9 Nissa Adriana 04/19/2017 hours as needed MIRTA Davis 108(90Base) mcg/Act for cough Aerosol Famotidine 1-2 tab by mouth 120tabs K21.9 Reva 04/16/2017 40mg every 12 hours as Terrell, EMERGENCY MEDICAL TECHNICIAN Tablets needed reflux Buspirone HCL 1 tab by mouth 60tabs F41.9 Reva 02/01/2017 7.5mg twice a day as Terrell, EMERGENCY MEDICAL TECHNICIAN Tablets needed Multi Adult Gummies 2 qd Unknown Chewtabs Flonase Allergy 1 spray to each Unknown Relief nostril every day 50mcg/Act Suspension Naproxen one tablet by 60tabs Nissa Adriana 250mg mouth twice a day Ryan [employer] Tablets History Medications Seasonique 1 by mouth 91tabs Reva 10/01/2017 - 0.15-0.03&0.01mg every day Terrell, [facility] 03/22/2018 Tablets Yany (28) Take as 168tabs Nissa Adriana 2017 - 0.18/0.215/0.25 directed MIRTA Davis 08/31/2017 mg-35 mcg Tablets Amoxicillin/Clavulanate take one tab 20tabs R05 Reva 04/16/2017 - Potassium by mouth twice [facility], [facility] 08/31/2017 875-125mg Tablets a day x 10 days Methylprednisolone dose pack, 1pack R05 Reva 04/16/2017 - 4mg Tablets admin as [facility], [facility] 04/18/2017 directed Benzonatate 1-2 by mouth Unknown 08/05/2016 - 100mg Capsules three times a 09/07/2016 day as needed for cough Amoxicillin/Clavulanate 1 by mouth 20tabs J01.90 Meredith Chi, 08/05/2016 - Potassium twice a day [facility] 09/07/2016 875-125mg Tablets with food Sertraline HCL 1 by mouth 30tabs F33.0 Shila Davis, 01/16/2016 - 50mg Tablets every day M.D. 08/24/2016 Anusol-HC 1 per rectum 12units K64.8 Kiersten Msoes, 11/19/2015 - 25mg Suppository bid x 6 days [facility]- 11/24/2015 Anusol-HC 1 per rectum 12units K64.8 Kiersten Moses, 10/08/2015 - 25mg Suppository bid x 6 days [facility] 10/14/2015 No Active Medications Unknown 05/01/2014 - 08/14/2015 Benzonatate 1 by mouth 30caps 465.8 Kiersten Moses, 04/24/2014 - 200mg Capsules three times a [facility] 05/01/2014 day as needed for cough No Active Medications Unknown 03/15/2014 - 04/24/2014 Fluconazole take one 1tabs Shirley 03/14/2014 - 150mg Tablets tablet by Victor Hugo [facility]- 03/15/2014 mouth x 1 No Active Medications Unknown 12/18/2013 - 03/14/2014 Amoxicillin 1 po tid x 5 15caps 791.7 Francisca Vu 01/03/2013 - 250mg Capsules days Avril Mead 08/21/2013 Nystatin to apply to 30gm 616.10 Kiersten Peacee, 07/26/2012 - [id number]/GM Cream perineum Afmirta-C 08/02/2012 /labia/vaginal opening as directed bid x 7 days Amoxicillin 1 po tid x 10 30caps 461.8 Francisca Vu 06/14/2012 - 500mg Capsules d with yogurt Avril Mead 07/26/2012 with 5 cultures. Fexofenadine HCL 1 po qd 30tabs 477.9 Kiersten Aurelia, 08/20/2011 - 180mg Tablets Af-C 06/07/2012 Amoxicillin 1 po tid 30tabs 382.9 Kyle An 04/22/2011 - 500mg Tablets Avril Bejarano 08/20/2011 Astelin 2 sprays bid 1units 477.0 Jo Magallon, 10/27/2010 - 137mcg/[place] Solution M.D. 08/20/2011 Vitamin D3 1 po qd 90units 268.9 Jo Magallon, 10/27/2010 - 2000Unit M.DAntonino 01/05/2011 Ketoconazole apply to 60gm 110.5 Jo Magallon, 07/14/2010 - 2% Cream affected areas M.D. 04/22/2011 of skin bid Nuvaring insert pv and 1units V25.09 Jo Magallon, 07/14/2010 - 0.12-0.015mg/24HR Ring leave in for M.D. 08/20/2011 three weeks, remove for one week then insert new ring Cipro 1 po bid for 5 10tabs Jo Magallon, 03/18/2010 - 250mg Tablets days M.D. 07/14/2010 Bactrim DS 1 po bid for 5 10tabs 788.41 Jo Magallon, 03/14/2010 - 800-160mg Tablets days M.D. 07/14/2010 Multivitamins 1 po qd 30tabs [facility] 09/11/2009 - Tablets [facility] 01/03/2013 [place] 1 po qd 1pack V25.09 Jo Magallon, 07/10/2009 - 0.15-0.03mg Tablets Avril 07/14/2010 Cpap Mask nasal mask 1units 327.23 Shirley 05/29/2009 - Thor Gay 09/11/2009 Ondansetron HCL take one 20tabs Unknown - 4mg Tablets tablet by 08/21/2013 mouth three times a day as needed for nausea Complete 1 po qd 30tabs Unknown - 14-0.4mg 12/18/2013 Tablets Stool Softener 1 po qd Unknown - Tablets 06/16/2016 Mirena (52 MG) 2015 Unknown - 20mcg/24HR IUD 06/07/2017 Medications Administered in Office Medication SIG Qnty Indications Ordering Provider Date TB Intradermal Test Francisca Mead M.D. 01/03/2014 Injection TB Intradermal Test Jo Magallon M.D. 01/05/2011 Injection TB Intradermal Test Jo Magallon M.D. 02/18/2010 Injection Immunizations CPT Code Status Date Vaccine Reaction Lot # [id number] Given 02/01/2017 Influenza Vac, Quadrivalent, Slit [id number] [id number] Given 04/02/2014 DO Not Use Split Influenza Virus [facility] Vaccine [id number] Given 03/02/2012 Preservative free flu 3 yrs+ and older [id number] Given 01/21/2011 DO Not Use Split Influenza Virus [id number] Vaccine 33591 Given 01/05/2011 Tdap Tetanus, W Pertussis [id number] Given 03/14/2010 DO Not Use Split Influenza Virus [id number] Vaccine Vital Signs Date Vital Result Comment 08/23/2018 2:48pm BP Systolic 98 mmHg BP Diastolic 70 mmHg Heart Rate 92 /min Body Temperature 98.6 F Respiratory Rate 17 /min Weight 230.00 lb 06/03/2018 2:24pm BP Systolic 120 mmHg BP Diastolic 76 mmHg Heart Rate 68 /min Body Temperature 97.9 F Respiratory Rate 20 /min Weight 238.00 lb 12/21/2017 5:29pm BP Systolic 112 mmHg BP Diastolic 66 mmHg Heart Rate 72 /min Body Temperature 98.8 F Respiratory Rate 16 /min Weight 234.50 lb 10/01/2017 4:23pm BP Systolic 100 mmHg BP Diastolic 58 mmHg Heart Rate 78 /min Body Temperature 99.2 F Respiratory Rate 17 /min 09/14/2017 3:40pm BP Systolic 116 mmHg BP Diastolic 62 mmHg Heart Rate 78 /min Body Temperature 98.7 F Respiratory Rate 17 /min Height 65 inches 5'5" stated 08/31/2017 6:32pm BP Systolic 112 mmHg BP Diastolic 64 mmHg Heart Rate 80 /min Body Temperature 99.4 F Respiratory Rate 17 /min Height 65 inches 5'5" stated Weight 236.00 lb BMI (Body Mass Index) 39.3 kg/m2 06/08/2017 3:06pm BP Systolic 112 mmHg BP Diastolic 70 mmHg Heart Rate 90 /min Body Temperature 98.4 F Height 65 inches 5'5" stated 06/01/2017 6:02pm BP Systolic 112 mmHg BP Diastolic 70 mmHg Heart Rate 88 /min Body Temperature 99.1 F Respiratory Rate 17 /min Height 65 inches 5'5" stated Weight 235.50 lb BMI (Body Mass Index) 39.2 kg/m2 04/19/2017 9:50am BP Systolic 120 mmHg BP Diastolic 64 mmHg Heart Rate 76 /min Body Temperature 98.6 F Height 65.25 inches 5'5.25" Weight 237.12 lb BMI (Body Mass Index) 39.2 kg/m2 04/16/2017 3:58pm BP Systolic 108 mmHg BP Diastolic 78 mmHg Heart Rate 68 /min Body Temperature 97.7 F Respiratory Rate 16 /min Height 65.25 inches 5'5.25" Weight 238.00 lb BMI (Body Mass Index) 39.3 kg/m2 02/01/2017 4:57pm BP Systolic 110 mmHg BP Diastolic 70 mmHg Heart Rate 72 /min Body Temperature 98.8 F Respiratory Rate 16 /min Height 65.25 inches 5'5.25" Weight 244.00 lb BMI (Body Mass Index) 40.3 kg/m2 11/27/2016 10:23am BP Systolic 130 mmHg BP Diastolic 80 mmHg Heart Rate 72 /min Body Temperature 98.4 F Height 65.5 inches 5'5.50" Measured 01/16/16 Weight 244.00 lb BMI (Body Mass Index) 40.0 kg/m2 09/23/2016 4:45pm BP Systolic 126 mmHg BP Diastolic 80 mmHg Heart Rate 96 /min Body Temperature 98.4 F Respiratory Rate 16 /min Height 65.5 inches 5'5.50" Measured 01/16/16 Weight 247.38 lb BMI (Body Mass Index) 40.5 kg/m2 08/05/2016 3:10pm BP Systolic 100 mmHg BP Diastolic 60 mmHg Heart Rate 76 /min Body Temperature 99.2 F Respiratory Rate 16 /min Height 65.5 inches 5'5.50" Measured 01/16/16 Weight 247.25 lb BMI (Body Mass Index) 40.5 kg/m2 06/16/2016 2:30pm BP Systolic 120 mmHg BP Diastolic 70 mmHg Heart Rate 76 /min Body Temperature 98.6 F Respiratory Rate 16 /min Height 65.5 inches 5'5.50" Measured 01/16/16 Weight 244.00 lb BMI (Body Mass Index) 40.0 kg/m2 02/27/2016 5:30pm BP Systolic 124 mmHg BP Diastolic 68 mmHg Heart Rate 74 /min Body Temperature 98.1 F Respiratory Rate 18 /min Height 65.5 inches 5'5.50" Measured 01/16/16 Weight 247.00 lb BMI (Body Mass Index) 40.5 kg/m2 02/05/2016 4:34pm BP Systolic 102 mmHg BP Diastolic 68 mmHg Heart Rate 68 /min Body Temperature 98.6 F Respiratory Rate 16 /min Height 65.5 inches 5'5.50" Measured 01/16/16 01/16/2016 4:59pm BP Systolic 128 mmHg BP Diastolic 74 mmHg Heart Rate 78 /min Body Temperature 98.2 F Respiratory Rate 16 /min Height 65.5 inches 5'5.50" Measured 01/16/16 Weight 245.25 lb BMI (Body Mass Index) 40.2 kg/m2 11/21/2015 10:05am BP Systolic 100 mmHg BP Diastolic 70 mmHg Heart Rate 80 /min Body Temperature 98.4 F Respiratory Rate 16 /min Height 65.25 inches 5'5.25" Weight 240.00 lb BMI (Body Mass Index) 39.6 kg/m2 10/08/2015 6:49pm BP Systolic 118 mmHg BP Diastolic 70 mmHg Heart Rate 84 /min Body Temperature 98.4 F Respiratory Rate 18 /min O2 % BldC Oximetry 98 % Height 65.25 inches 5'5.25" Weight 237.25 lb BMI (Body Mass Index) 39.2 kg/m2 08/14/2015 3:21pm BP Systolic 146 mmHg BP Diastolic 83 mmHg Heart Rate 88 /min Body Temperature 97.9 F Respiratory Rate 14 /min O2 % BldC Oximetry 97 % Height 65.25 inches 5'5.25" Weight 241.38 lb BMI (Body Mass Index) 39.9 kg/m2 07/15/2015 4:05pm BP Systolic 130 mmHg BP Diastolic 76 mmHg Heart Rate 80 /min Body Temperature 97.9 F Respiratory Rate 16 /min Height 65.25 inches 5'5.25" Weight 243.00 lb BMI (Body Mass Index) 40.1 kg/m2 04/24/2014 7:17pm BP Systolic 126 mmHg BP Diastolic 74 mmHg Heart Rate 72 /min Body Temperature 99.0 F Respiratory Rate 16 /min Height 65.25 inches 5'5.25" Weight 245.00 lb BMI (Body Mass Index) 40.5 kg/m2 03/14/2014 4:27pm BP Systolic 132 mmHg BP Diastolic 80 mmHg Heart Rate 80 /min Body Temperature 98.6 F Respiratory Rate 14 /min Height 65.25 inches 5'5.25" Weight 247.00 lb BMI (Body Mass Index) 40.8 kg/m2 01/05/2014 11:22am BP Systolic 120 mmHg BP Diastolic 80 mmHg Heart Rate 80 /min Body Temperature 98.0 F Respiratory Rate 18 /min Height 65.25 inches 5'5.25" Weight 241.00 lb BMI (Body Mass Index) 39.8 kg/m2 12/18/2013 7:04pm BP Systolic 120 mmHg BP Diastolic 80 mmHg Heart Rate 80 /min Body Temperature 98.0 F Respiratory Rate 18 /min Height 65.25 inches 5'5.25" Weight 241.00 lb BMI (Body Mass Index) 39.8 kg/m2 08/21/2013 11:58am BP Systolic 112 mmHg BP Diastolic 70 mmHg Heart Rate 74 /min Body Temperature 98.7 F Height 65.25 inches 5'5.25" Weight 237.00 lb BMI (Body Mass Index) 39.1 kg/m2 01/03/2013 2:54pm BP Systolic 120 mmHg BP Diastolic 70 mmHg Heart Rate 72 /min Body Temperature 98.7 F Respiratory Rate 16 /min Height 65.25 inches 5'5.25" Weight 234.00 lb BMI (Body Mass Index) 38.6 kg/m2 12/07/2012 1:49pm BP Systolic 112 mmHg BP Diastolic 80 mmHg Heart Rate 68 /min Body Temperature 99.9 F Respiratory Rate 18 /min Height 65 inches 5'5" Weight 232.00 lb BMI (Body Mass Index) 38.6 kg/m2 08/29/2012 8:56pm BP Systolic 120 mmHg BP Diastolic 72 mmHg Heart Rate 72 /min Body Temperature 99.1 F Respiratory Rate 16 /min Height 65 inches 5'5" Weight 233.25 lb BMI (Body Mass Index) 38.8 kg/m2 07/26/2012 5:36pm BP Systolic 100 mmHg BP Diastolic 68 mmHg Heart Rate 64 /min Body Temperature 99.9 F Height 65 inches 5'5" Weight 232.00 lb BMI (Body Mass Index) 38.6 kg/m2 06/14/2012 4:14pm BP Systolic 120 mmHg BP Diastolic 80 mmHg Heart Rate 68 /min Body Temperature 99.0 F Height 65 inches 5'5" Weight 232.00 lb BMI (Body Mass Index) 38.6 kg/m2 06/07/2012 7:41pm BP Systolic 110 mmHg BP Diastolic 76 mmHg Heart Rate 64 /min Body Temperature 99.0 F Height 65 inches 5'5" Weight 233.00 lb BMI (Body Mass Index) 38.8 kg/m2 03/02/2012 10:07am BP Systolic 100 mmHg BP Diastolic 76 mmHg Heart Rate 72 /min Body Temperature 98.1 F Height 65 inches 5'5" Weight 230.00 lb BMI (Body Mass Index) 38.3 kg/m2 10/02/2011 11:44am BP Systolic 108 mmHg BP Diastolic 70 mmHg Heart Rate 76 /min Body Temperature 99.4 F Height 65 inches 5'5" Weight 215.00 lb BMI (Body Mass Index) 35.8 kg/m2 08/20/2011 9:16am BP Systolic 106 mmHg BP Diastolic 66 mmHg Heart Rate 76 /min Body Temperature 98.8 F Height 65 inches 5'5" Weight 215.00 lb BMI (Body Mass Index) 35.8 kg/m2 04/22/2011 2:19pm BP Systolic 104 mmHg BP Diastolic 76 mmHg Heart Rate 72 /min Body Temperature 98.4 F Height 65 inches 5'5" Weight 217.00 lb BMI (Body Mass Index) 36.1 kg/m2 01/21/2011 8:29pm BP Systolic 110 mmHg BP Diastolic 70 mmHg Heart Rate 72 /min Respiratory Rate 16 /min Height 65 inches 5'5" Weight 220.00 lb BMI (Body Mass Index) 36.6 kg/m2 01/05/2011 11:15am BP Systolic 114 mmHg BP Diastolic 64 mmHg Heart Rate 72 /min Height 65 inches 5'5" Weight 219.00 lb BMI (Body Mass Index) 36.4 kg/m2 10/27/2010 8:11am BP Systolic 110 mmHg BP Diastolic 64 mmHg Heart Rate 76 /min Body Temperature 99.1 F Respiratory Rate 16 /min Height 65 inches 5'5" Weight 222.00 lb BMI (Body Mass Index) 36.9 kg/m2 Right Visual Acuity Distance 20/50 Left Visual Acuity Distance 20/50 07/14/2010 8:25am BP Systolic 118 mmHg BP Diastolic 64 mmHg Heart Rate 64 /min Body Temperature 98.4 F Respiratory Rate 20 /min Height 65 inches 5'5" Weight 224.00 lb BMI (Body Mass Index) 37.3 kg/m2 03/14/2010 2:47pm BP Systolic 110 mmHg BP Diastolic 70 mmHg Heart Rate 80 /min Body Temperature 99.5 F Respiratory Rate 20 /min Height 65 inches 5'5" Weight 221.00 lb BMI (Body Mass Index) 36.8 kg/m2 02/26/2010 2:19pm BP Systolic 102 mmHg BP Diastolic 74 mmHg Heart Rate 66 /min Height 65 inches 5'5" Weight 219.00 lb BMI (Body Mass Index) 36.4 kg/m2 09/11/2009 6:42pm BP Systolic 104 mmHg BP Diastolic 62 mmHg Heart Rate 88 /min Height 65 inches 5'5" Weight 211.00 lb BMI (Body Mass Index) 35.1 kg/m2 07/10/2009 6:24pm BP Systolic 110 mmHg BP Diastolic 80 mmHg Heart Rate 84 /min Height 65 inches 5'5" Weight 209.00 lb BMI (Body Mass Index) 34.8 kg/m2 05/29/2009 1:42pm BP Systolic 118 mmHg BP Diastolic 70 mmHg Heart Rate 80 /min Height 65 inches 5'5" Weight 210.00 lb BMI (Body Mass Index) 34.9 kg/m2 Results Test Date Facility Test Result H/L Range Note Laboratory test [facility] Stool Negative Negative 1 finding 9 Helicobacter pylori Ag Laboratory test [facility] TSH 2.62 mIU/L 0.50-6.00 finding 9 Comprehensive [facility] Sodium 146 mEq/L 134-149 Metabolic Prof 9 Potassium 4.3 mEq/L 3.6-5.5 Chloride 102 mEq/L 94-112 Carbon Dioxide 27 mEq/L 21-32 Glucose 92 mg/dL 70-105 BUN 15 mg/dL 6-26 Creatinine 0.7 mg/dL 0.6-1.4 BUN/Creat Ratio 21.4 CALC 8.0-36.0 Calcium 9.5 mg/dL 8.6-10.2 Total Protein 7.0 g/dL 6.4-8.3 Albumin 4.2 g/dL 3.8-5.5 Globulin 2.8 g/dL 2.0-4.8 A/G Ratio 1.5 CALC 0.6-2.3 Alk. Phosphatase 51 U/L 30-110 Alt (SGPT) 15 U/L 7-35 Ast (Sgot) 9 U/L 5-34 Total Bilirubin 0.5 mg/dL 0.2-1.3 GFR Non- >60 ml/min/1.73m^ >=60 GFR >60 ml/min/1.73m^ >=60 Laboratory test finding 06/03/2018 [facility] Ferritin 21 ng/mL 6- 115 CBC Electronic Fma 06/03/2018 [facility] WBC 7.8 x10^3/UL 4.0-10.0 RBC 4.46 x10^6/UL 3.93-6.00 HGB 12.6 g/dL 12.0-17.0 HCT 38 % 35-50 MCV 85.2 fL 80.0-95.0 MCH 28.3 pg 25.6-32.2 MCHC 33.2 g/dL 32.2-36.0 RDW-CV 13.2 % 11.6-14.4 PLT 322 x10^3/UL 163-400 MPV 9.5 fL 9.4-12.4 Kim# 4.77 x10^3/UL 1.56-6.13 Lymph# 2.49 x10^3/UL 1.18-3.74 [place]# 0.45 x10^3/UL 0.24-0.82 Eos # 0.1 x10^3/UL 0.0-0.5 Baso # 0.03 x10^3/UL 0.01-0.08 Kim% 60.9 % 34.0-70.0 Lymph % 31.8 % 20.0-52.0 [place]% 5.7 % 5.0-12.0 Eos% 1.1 % 0.7-7.0 Baso% 0.4 % 0.1-1.2 Iron & Iron Binding Capacity 06/03/2018 [facility] Iron 38 g/dL Low 50-212 Unsaturated Iron Binding < 413 g/dL Total Iron Binding Capacity 428 g/dL N 250-450 Transferrin 306 mg/dL N 203-362 % Iron Saturation 9 % Low 15-55 Urine (Fma) 10/01/2017 [facility] Medicine SP Grav >1.030 (607)- - Urine, (Fma/CMC/CTX) negative Complete Blood Count 06/08/2017 [facility] WBC 9.9 x10^3/UL High 3.6- 9.6 RBC 4.36 x10^6/UL 3.90-5.70 HGB 12.6 g/dL 12.1-17.2 HCT 37 % 36-50 MCV 85.0 fL 82.2-97.4 MCH 29.0 pg 27.6-33.3 MCHC 34.1 g/dL 33.0-35.5 RDW 14.3 % High 11.6-13.7 PLT 347 x10^3/UL 150-400 MPV 7.1 fL Low 7.4-10.4 Gran # 6.8 x10^3/UL 1.5-7.2 Lymph# 2.7 x10^3/UL 0.7-4.9 [place]# 0.4 x10^3/UL 0.1-0.9 Gran % 67.6 % 42.2-75.2 Lymph % 27.5 % 20.5-51.1 [place]% 4.9 % 1.7-9.3 Laboratory test finding 06/08/2017 [facility] Lactic Acid 0.8 mmol/L N 0.5-2.0 2 CBC Auto Diff 06/08/2017 [facility] White Blood Count 10.9 10^3/uL High 3.5- 10.8 Red Blood Count 4.65 10^6/uL N 4.0-5.4 Hemoglobin 13.1 g/dL N 12.0-16.0 Hematocrit 39 % N 35-47 Mean Corpuscular Volume 84 fL N 80-97 Mean Corpuscular Hemoglobin 28 pg N 27-31 Mean Corpuscular HGB Conc 34 g/dL N 31-36 Red Cell Distribution Width 14 % N 10.5-15 Platelet Count 332 10^3/uL N 150-450 Mean Platelet Volume 8 um3 N 7.4-10.4 Abs Neutrophils 7.1 10^3/uL N 1.5-7.7 Abs Lymphocytes 3.1 10^3/uL N 1.0-4.8 Abs Monocytes 0.6 10^3/uL N 0-0.8 Abs Eosinophils 0.1 10^3/uL N 0-0.6 Abs Basophils 0.1 10^3/uL N 0-0.2 Abs Nucleated RBC 0 10^3/uL Granulocyte % 64.8 % N 38-83 Lymphocyte % 28.0 % N 25-47 Monocyte % 5.6 % N 1-9 Eosinophil % 0.9 % N 0-6 Basophil % 0.7 % N 0-2 Nucleated Red Blood Cells % 0 Laboratory test finding 06/08/2017 [facility] HCG < 0.60 mIU/mL 3 Comp Metabolic Panel 06/08/2017 [facility] Sodium 138 mmol/L N 133-145 Potassium 3.7 mmol/L N 3.5-5.0 Chloride 105 mmol/L N 101-111 Co2 Carbon Dioxide 26 mmol/L N 22-32 Anion Gap 7 mmol/L N 2-11 Glucose 84 mg/dL N 70-100 Blood Urea Nitrogen 10 mg/dL N 6-24 Creatinine 0.81 mg/dL N 0.51-0.95 BUN/Creatinine Ratio 12.3 N 8-20 Calcium 9.0 mg/dL N 8.6-10.3 Total Protein 7.0 g/dL N 6.4-8.9 Albumin 4.1 g/dL N 3.2-5.2 Globulin 2.9 g/dL N 2-4 Albumin/Globulin Ratio 1.4 N 1-3 Total Bilirubin 0.40 mg/dL N 0.2-1.0 Alkaline Phosphatase 55 U/L N 34-104 Alt 17 U/L N 7-52 Ast 12 U/L Low 13-39 Egfr Non- 83.0 >60 Egfr 106.8 >60 4 Laboratory test finding 06/08/2017 [facility] Inr/Protime 0.85 N 0.77-1.02 Partial Thrombo Time PTT 37.9 seconds High 26.0-36.3 Complete Blood Count 02/06/2017 [facility] WBC 7.7 x10^3/UL 3.6-9.6 RBC 4.61 x10^6/UL 3.90-5.70 HGB 13.1 g/dL 12.1-17.2 HCT 40 % 36-50 MCV 86.0 fL 82.2-97.4 MCH 28.5 pg 27.6-33.3 MCHC 33.2 g/dL 33.0-35.5 RDW 14.5 % High 11.6-13.7 PLT 337 x10^3/UL 150-400 MPV 6.8 fL Low 7.4-10.4 Gran # 5.4 x10^3/UL 1.5-7.2 Lymph# 2.0 x10^3/UL 0.7-4.9 [place]# 0.3 x10^3/UL 0.1-0.9 Gran % 68.3 % 42.2-75.2 Lymph % 26.7 % 20.5-51.1 [place]% 5.0 % 1.7-9.3 Comprehensive Metabolic Prof 02/06/2017 [facility] Sodium 142 mEq/L 134-149 Potassium 4.7 mEq/L [...] GFR >60 ml/min/1.73m^ >=60 Lipid Profile 02/06/2017 [facility] Cholesterol 177 mg/dL 120-200 Triglycerides 123 mg/dL 30-200 HDL Cholesterol 34 mg/dL 30-85 LDL (Calculated) 118 CALC 0-129 VLDL Cholesterol 25 mg/dL 0-50 HDL Risk Factor 5.2 CALC High 0.0-4.4 Laboratory test finding 02/06/2017 [facility] TSH 1.70 mIU/L 0.50- 6.00 Free T4 0.93 ng/dL 0.75-1.54 Vitamin B-12 764 pg/mL 230-1050 Lyme AB/Western 02/06/2017 [facility] Lyme IgG/IgM <0.91 ISR 0.00-0.90 5, 6 Blot Reflex [address] [facility] [place] [address] (607)- - Lyme Disease Ab, Quant, IgM <0.80 index 0.00-0.79 7 Laboratory test 02/06/2017 [facility] Hemoglobin A1c 5.7 % % 4.1- 5.7 finding (607)- - (Fma) Lyme AB/Western 11/27/2016 [facility] Lyme IgG/IgM Ab <0.91 ISR 0.00-0.90 8 Blot Reflex [address] [place] [address] (602)- - Lyme Disease Ab, Quant, IgM <0.80 index 0.00-0.79 9 Vaginitis Nuswab 08/05/2016 [facility] Atopobium High - 2 Abnormal 10 [address] [facility] [place] [address] (607)- - Bvab 2 Low - 0 Score Megasphaera 1 High - 2 Score Abnormal 11 Freida albicans, Yesenia Positive Abnormal Negative 12 Freida glabrata, Yesenia Negative Negative 13 Trich vag by Yesenia Negative Negative Laboratory test 10/08/2015 [facility] Hemoglobin A1c (Fma) 5.7 % 4.1-5.7 finding (607)- - CBC Electronic (Fma) 10/08/2015 [facility] WBC 8.4 3.6-9.6 (607)- - RBC 4.94 3.90-5.70 Hemoglobin (Fma/CMC/CTX) 12.9 g/dL 12.1 - 17.2 Hematocrit (Fma/CMC/CTX) 40.8 % 36.1 - 50.3 Platelets 386 10^3/ul 150-400 Lymph% 34.6 % 17.0-48.0 Mixed% 4.2 Neutrophils % 61.2 Mean Corpuscular Vol 83 82.2-97.4 Mean Corpuscular Hemoglobin 26.0 Low 27.6-33.3 Mean Corpuscular Hemo Concen 31.5 Low 32.0-36.0 RDW 15.4 High 11.6-13.7 Mean Platelet Volume 7.1 5.5-11.0 Laboratory test 11/26/2014 [facility] Urine Culture And SEE RESULT 14 finding Sensitivities BELOW Vaginitis Dna 03/14/2014 [facility] Screen Trichomonas NEGATIVE Affirm [address] [place] [address] [phone] Screen Gardnerella Vaginalis Dna POSITIVE Screen Freida Species Dna POSITIVE Laboratory test 03/14/2014 [facility] Medicine Wet Prep fadi:: ++ finding (607)- - (Fma,CMC,CX) hyphae Ua - Micro (Fma) 12/18/2013 [facility] Appearance clear (607)- - Color yellow Glucose neg Bilirubin neg Ketones neg SP Grav >1.030 Blood trace-intact # PH 5.5 Protein neg Urobil 0.2 Nitrite neg Leukocytes (Fma/CMC/[facility]) neg Hyaline - /Lpf Granular - /Lpf WBC (Fma,[facility]) 3-5 # RBC 1-2 # Mucus small amt /Lpf # Epith few /Lpf # Bacteria 1+ /Hpf # Amorphous small amt /Lpf # Crystals, Fluid (Fma/CMC/CTX) - Z#Comments - Type & Screen 08/04/2013 [facility] [place] Patient Blood Type O Positive Antibody Screen NEGATIVE CBC No Diff 08/04/2013 [facility] [place] White Blood Count 12.5 10^3/uL High 4.8-10.8 Red Blood Count 4.41 10^6/uL 4.0-5.4 Hemoglobin 12.2 g/dL 12.0-16.0 Hematocrit 36 % 35-47 Mean Corpuscular Volume 83 fL 80-97 Mean Corpuscular Hemoglobin 28 pg 27-31 Mean Corpuscular HGB Conc 34 g/dL 31-36 Red Cell Distribution Width 17 % High 10.5-15 Platelet Count 311 10^3/uL 150-450 Mean Platelet Volume 8 um3 7.4-10.4 Laboratory test 08/03/2013 [facility] Amnisure No Membrane 15 finding Rupt <SEE NOTE> Laboratory test 08/02/2013 [facility] Amnisure No Membrane 16 finding Rupt <SEE NOTE> Urine Culture And 01/22/2013 [facility] Urine Culture (SEE NOTE) 17 Sensitivities Laboratory test 01/22/2013 [facility] Beta HCG 61141.0 MIU/ML High 0.0-5.0 18 finding Quantitative C Reactive Protein 1.4 mg/dL High Less than 0.5 Comp Metabolic Panel 01/22/2013 [facility] Sodium 134 mmol/L 133-145 Potassium 3.8 mmol/L [...] Egfr Non- 120.8 >60 Egfr 155.4 >60 19 CBC Auto Diff 01/22/2013 [facility] White Blood Count 13.7 10^3/uL High 4.8- 10.8 Red Blood Count 4.42 10^6/uL 4.0-5.4 Hemoglobin [...] Blood Cells % 0.1 Abo/RH Type 01/22/2013 [facility] Patient Blood Type O Positive Inr/Protime 01/22/2013 [facility] Inr 0.89 0.87-0.97 Urine Microscopic 01/22/2013 [facility] Urine WBC 3+ (>30 /hpf) None Seen Urine RBC 3+ (>10 /hpf) None Seen Urine Mucus Present /lpf Absent Urine Epithelial Cells 3+ Squamous /hpf None Seen Bacteria Urine 2+ None Seen Urinalysis 01/22/2013 [facility] Urine Color Yellow Urine Appearance Clear Urine Specific [place] 1.007 Low 1.010-1.030 Urine Esterase 3+ Abnormal Negative Urine Nitrate Negative Negative Urine Urobilinogen Negative E.U./dL Negative Urine Protein Negative mg/dL Negative Urine pH 6.5 5-9 Urine Blood 3+ Abnormal Negative Urine Ketones Negative mg/dL Negative Urine Bilirubin Negative Negative Urine Glucose Negative mg/dL Negative Laboratory test 01/22/2013 [facility] Activated 32.8 seconds 22.18-37.18 finding Partial Thrombo Time Ua - Micro (Fma) 01/03/2013 [facility] Appearance clear (607)- - Color yellow Glucose neg Bilirubin neg Ketones neg SP Grav 1.025 Blood neg PH 6.0 Protein neg Urobil 0.2 Nitrite neg Leukocytes (Fma/CMC/[facility]rex) moderate Hyaline - /Lpf Granular - /Lpf WBC (a,[facility]) 20-25 RBC - Mucus - /Lpf Epith few + /Lpf Bacteria trace /Hpf Amorphous mod amt /Lpf Crystals, Fluid (Fma/CMC/CTX) - Z#Comments not clean catch Laboratory 01/03/2013 [facility] Urine Culture Mixed 20 test finding [address] [address] [address] <SEE NOTE> [phone] Laboratory 12/07/2012 [facility] HCG, 74 mIU/mL Abnormal 21, test finding [address] [address] Quantitative 22 [place], [place] [id number] [phone] Urine 12/07/2012 [facility] SP Grav >=1.030 (607)- - (Fma) Urine, (Fma/CMC/CTX) EQUIVICAL # CBC Auto Diff 11/21/2012 [facility] White Blood Count 11.2 10^3/uL High 4.8- 10.8 Red Blood Count 4.36 10^6/uL 4.0-5.4 Hemoglobin [...] Blood Cells % 0.1 Laboratory test 11/21/2012 [facility] D Dimer Quantitative < 200 ng/mL Less Than 230 23 finding Comp Metabolic 11/21/2012 [facility] Sodium 141 mmol/L 133-145 Panel Potassium 4.0 mmol/L 3.5-5.0 Chloride 108 mmol/L [...] Egfr Non- 86.7 >60 Egfr 111.5 >60 24 Laboratory test finding 11/21/2012 [facility] Troponin I 0 ng/mL 0-0.06 25 Ua - Micro (Fma) 07/26/2012 [facility] Appearance CLEAR (607)- - Color YELLOW Glucose NEG Bilirubin NEG Ketones NEG SP Grav 1.020 Blood TRACE-INTACT # PH 7.0 Protein NEG Urobil 0.2 Nitrite NEG Leukocytes (Fma/CMC/Centrex) NEG Hyaline - /Lpf Granular - /Lpf WBC (Fma,Centrex) 0-1 # RBC 0-1 # Mucus - /Lpf Epith FEW /Lpf # Bacteria TRACE /Hpf # Amorphous + /Lpf # Crystals, Fluid (Fma/CMC/CTX) - Z#Comments - Laboratory test 07/26/2012 [facility] Medicine Wet Prep SEE COMMENTS 26 finding (607)- - (Fma,CMC,CX) Urine 07/26/2012 [facility] SP Grav 1.020 (Fma) (607)- - Urine, (Fma/CMC/CTX) NEG Laboratory test 07/26/2012 [facility] Urine Culture Mixed urethral 27 finding 28 [facility] f <SEE NOTE> [place] [address] [phone] Urine 03/02/2012 [facility] SP Grav 1.015 (Fma) (607)- - Urine, (Fma/CMC/CTX) negative HCG Beta Subunit 03/02/2012 [facility] HCG, Beta <1 mIU/mL [address] Q[address] Chain, Quant, [place] [address] S [phone] Laboratory test 09/30/2011 [facility] PTT (Aptt) 33.7 SEC 25.1-38 finding .5 D Dimer Quantitative < 200 NG/ML Less Than 230 29 (HCG) Serum NEGATIVE Negative 30 Comp Metabolic Panel 09/30/2011 [facility] Sodium 137 mmol/L 135-145 Potassium 4.0 mmol/L 3.5-5.0 Chloride 105 mmol/L 101-111 Co2 (Carbon Dioxide) 26.0 mmol/L 22-32 Anion Gap 6.0 mmol/L 2-11 31 Glucose 85 mg/dL 70-100 BUN 14 mg/dL 6-24 Creatinine 0.8 mg/dL 0.50-1.40 One Over Creatinine 1.25 BUN/Creatinine Ratio 17.5 8-20 Calcium 9.0 mg/dL 8.1-9.9 Total Protein 6.8 GM/DL 6.2-8.1 Albumin 3.7 GM/DL 3.6-5.4 Globulin 3.1 GM/DL 2-4 Albumin/Globulin Ratio 1.2 1-3 Bilirubin Total 0.7 mg/dL 0.4-1.5 32 Alkaline Phosphatase 57 U/L 30-110 Alt (SGPT) 23 U/L 14-54 Ast (Sgot) 16 U/L 12-42 eGFR Non- 87.4 > 60 eGFR 112.4 > 60 33 Laboratory test finding 09/30/2011 [facility] Troponin-I 0 NG/ML 0-0.06 34 TSH 2.25 MIU/ML 0.34-5.60 CBC Auto Diff 09/30/2011 [facility] White Blood Count 6.8 CUMM 4.8-10.8 Red [...] 0-0.6 Abs Basophils 0 0-0.2 Protime 09/30/2011 [facility] Inr 0.89 0.88-1.13 35 Protime 10.6 SEC 10.3-13.5 36 Laboratory test finding 08/20/2011 [facility] Medicine Quickstrep Negative Negative (607)- - Throat - Beta Strep Fma NEG @ 48 HRS Ua - Micro (Fma) 10/27/2010 [facility] Appearance CLOUDY (607)- - Color YELLOW Glucose NEG Bilirubin NEG Ketones ANGELICA SP Grav <1.005 Blood NEG PH 5.5 Protein NEG Urobil 0.2 Nitrite NEG Leukocytes (Fma/CMC/Centrex) LARGE # Hyaline - /Lpf Granular - /Lpf WBC (Fma,[facility]rex) 10-15 # RBC - Mucus - /Lpf # Epith LARGE AMT /Lpf # Bacteria TRACE /Hpf # Amorphous MOD AMT /Lpf # Crystals, Fluid (Fma/CMC/CTX) - Z#Comments NOT CLEAN CATCH # Laboratory test 10/27/2010 [facility] Vitamin D, 25 46.9 32.0-100.0 37 finding 28 [facility] Oh ng/[place] [address] [phone] Lipid Profile 10/27/2010 [facility] Cholesterol 194 mg/dL 120-200 HDL 38 mg/dL 30-85 Triglycerides 182 mg/dL 30-200 HDL Risk Factor 5.2 CALC High 0.0-4.0 LDL (Calculated) 120 CALC 0-129 VLDL (Calculated) 36 mg/dL 0-50 Basic Metabolic Profile 10/27/2010 [facility] BUN 11 mg/dL 6-26 Calcium 9.3 mg/dL 8.6-10.2 Chloride 102 mEq/L 94-112 Creatinine 0.8 mg/dL 0.6-1.4 Carbon Dioxide 22 mEq/L 21-32 Glucose 99 mg/dL 70-105 Sodium 141 mEq/L 134-149 Potassium 4.7 mEq/L 3.6-5.5 BUN/Creat Ratio 13.3 Calc 8.0-36.0 Laboratory test 10/27/2010 [facility] Thin Prep SEE NOTE 38 finding [address] [facility] [address] W/HPV(Lsil/AVTAR/Asc) [place], [place] [id number] [phone] CBC Electronic 10/27/2010 [facility] Medicine WBC 6.3 3.6- (Fma) (607)- - 9.6 RBC 4.81 3.90-5.70 Hemoglobin (Fma/CMC/CTX) 13.9 g/dL 12.1 - 17.2 Hematocrit (Fma/CMC/CTX) 40.5 % 36.1 - 50.3 Platelets 342 10^3/ul 150-400 Lymph% 30.0 20.5-51.1 Mixed% 3.5 Neutrophils % 66.5 Mean Corpuscular Vol 84 82.2-97.4 Mean Corpuscular Hemoglobin 28.8 27.6-33.3 Mean Corpuscular Hemo Concen 34.3 32.0-36.0 RDW 11.8 11.6-13.7 Mean Platelet Volume 7.7 6.5-11.0 Urine (Fma) 03/14/2010 [facility] SP Grav 1.025 (607)- - Urine, (Fma/CMC/CTX) NEGATIVE Ua - Micro (a) 03/14/2010 [facility] Medicine Appearance SLIGHTLY CLOUDY (607)- - Color YELLOW Glucose NEG Bilirubin NEG Ketones NEG SP Grav 1.025 Blood TRACE-LYSED # PH 5.5 Protein NEG Urobil 0.2 E.U./dL Nitrite NEG Leukocytes (Fma/CMC/Centrex) TRACE # Hyaline - /Lpf Granular - /Lpf WBC (Fma,[facility]rex) 2-3 # RBC 2-3 # Mucus - /Lpf Epith 1+ /Lpf # Bacteria 1+ /Hpf # Amorphous - /Lpf Crystals, Fluid (Fma/CMC/CTX) - Z#Comments - Comprehensive Metabolic Prof 03/14/2010 [facility] Albumin 4.2 g/dL 3.8-5.5 Alk. Phos. 45 [...] Ratio 16.6 Calc 8.0-36.0 Laboratory test 03/14/2010 [facility] Urine No significant g 39 finding 28 [facility] Culture <SEE NOTE> [place] [address] [phone] Laboratory test 07/10/2009 [facility] Thin Prep SEE NOTE 40 finding 28 [facility] W/HPV(Lsil/[place] [address] IBETH/Asc) [phone] Laboratory test 07/10/2009 [facility] Vitamin D, 29.5 ng/mL Low 32.0- 41 finding 28 [facility] 25 [address] 100.0 [place] [address] [phone] Laboratory test 07/10/2009 [facility] TSH 2.41 mIU/L 0.50- finding 6.00 Cholesterol 199 mg/dL 120-200 HDL 38 mg/dL 30-85 Ua - Micro (Fma) 07/10/2009 [facility] Appearance clear (607)- - Color yellow Glucose, Urine (Fma/CMC/CTX) - Bilirubin - Ketones - SP Grav 1.020 Blood - PH 7.0 Protein - Urobil 0.2 Nitrite - Leukocytes (Fma/CMC/[facility]rex) trace # Hyaline - /Lpf Granular - /Lpf WBC (Fma,[facility]rex) 4-6 RBC 3-5 Mucus (Fma/CBC/[facility]) - /Lpf Epith mod /Lpf Bacteria trace /Hpf Amorphous (Fma/CMC/Centrex) - /Lpf Crystals, Fluid (Fma/CMC/CTX) - Z#Comments not clean catch 1 Test Performed by: [facility] [address] [place] [address] 2 [facility] Severe Sepsis and Septic Shock Management Bundle Measure requires all lactic acids initially measuring >2.0 mmol/L be repeated. 3 <5.0 Negative 5.0 - 25.0 Indeterminate (Repeat testing recommended after 72 hours) >25.0 Positive Perimenopausal women can display HCG levels of up to 20 mIU/mL 4 Because ethnic data is not always readily [...] 15-29 5 Kidney failure <15 (or dialysis) 5 1SST 6 Negative <0.91 Equivocal 0.91 - 1.09 Positive >1.09 7 Negative <0.80 Equivocal 0.80 - 1.19 Positive >1.19 IgM levels may peak at 3-6 weeks post infection, then gradually decline. 8 Negative <0.91 Equivocal 0.91 - 1.09 Positive >1.09 9 Negative <0.80 Equivocal 0.80 - 1.19 Positive >1.19 IgM levels may peak at 3-6 weeks post infection, then gradually decline. 10 1 aptima 11 Calculate total score by adding the 3 individual bacterial vaginosis (BV) marker scores together. Total score is interpreted as follows: Total score 0-1: Indicates the absence of BV. Total score 2: Indeterminate for BV. Additional clinical data should be evaluated to establish a diagnosis. Total score 3-6: Indicates the presence of BV. This test was developed and its performance characteristics determined by [employer] [facility] It has not been cleared or approved by the Food and Drug Administration. The FDA has determined that such clearance or approval is not necessary. 12 Verified by repeat analysis 13 This test was developed and its performance characteristics determined by [facility] It has not been cleared or approved by the Food and Drug Administration. The FDA has determined that such clearance or approval is not necessary. 14 SEE RESULT BELOW Name: EVENS MIGUEL : [address]: Viktor Rdz MD Acct: [id number] Unit: [id number] AGE: 29 Location: [facility] Re11/26/14 SEX: F Status: DEP ER SPEC: [id number] GERBER: 11/26/14-[address] [facility] [address]: Alisson Rdz [employer] REQ: [id number] RECD: 11/27/14 STATUS: LASHANDA NGUYEN DR: [facility] Francisca Mead MD _ SOURCE: URINE SPDESC: ORDERED: Urine Culture Procedure Result Verified Site Urine Culture Final 11/29/14- 0934 ML Organism 1 NORMAL NIRMAL [place] Count >100,000 (Many) CFU/ML * ML - MAIN LAB (PSC1) . END OF REPORT * ML=Testing performed at Main Lab DEPARTMENT OF PATHOLOGY, [facility] [employer] [place], [place] [address] Joe Graves M.D. Director [facility] # [id number] 15 No Membrane Rupture 16 No Membrane Rupture 17 RUN DATE: 01/24/13 [facility] LAB LIVE PAGE 1 RUN TIME: 941 [facility] [address] [place], [place] [address] Specimen Inquiry Name: EVENS MIGUEL : [address]: Willie Steinberg MD Acct: [id number] Unit: [id number] AGE: 27 Location: ED Re01/22/13 SEX: F Status: DEP ER SPEC: [id number] GERBER: 01/22/[address] [facility] [address]: Willie Steinberg MD REQ: [id number] RECD: 01/22/13 STATUS: LASHANDA NGUYEN DR: Francisca Mead MD _ [facility]: [facility] ORDERED: Urine Culture Procedure Result Verified Site Urine Culture Final 01/24/13- 941 ML Organism 1 NORMAL NIRMAL [place] Count 75-100,000 (Many) CFU/ML END OF REPORT * ML=Testing performed at Main Lab DEPARTMENT OF PATHOLOGY, [address] [place] [address] Joe Graves M.D. Director [facility] Permit #[id number] 18 Males: < 5.0 miu/ml Non females < [...] be confirmed by an alternate HCG method. 19 Because ethnic data is not always readily [...] 15-29 5 Kidney failure <15 (or dialysis) 20 Mixed urethral nirmal present. Repeat may be indicated. 21 1SST 22 . Less than 5: Negative for 6 [...] HCG-like substances, trophoblastic or non-trophoblastic neoplasms. . 23 Please note: The following may produce a false positive D Dimer test: - Rheumatoid factor greater than 60 IU/ml - Plasma hemoglobin greater than 0.05 gm/dl - Bilirubin greater than 50 mg/dl - Lipids greater than 1000 mg/dl - FDP greater than 20 ug/ml 24 Because ethnic data is not always readily [...] 15-29 5 Kidney failure <15 (or dialysis) 25 Reference Range and Interpretation: TnI (ng/mL) Interpretation Less Than 0.06 ng/mL Not supportive of diagnosis of TN 0.06 - 0.50 ng/mL Indeterminate: suggest serial studies if clinically indicated. Greater than 0.5 ng/mL Consistent with diagnosis of TN 26 few hyphae noted; neg FADI whiff test 27 Mixed urethral nirmal present. Repeat may be indicated. 28 Female (Non-) 0 - 5 (Postmenopausal) 0 - 8 . Female () Weeks of Gestation 3 6 - 71 4 10 - 750 5 217 - 7138 6 158 - 79754 7 [phone] 8 [phone] -[phone] 9 [phone] -[phone] 10 15335 -205449 12 46449 -086602 14 31562 - 26282 15 59680 - 92239 16 2482 - 46436 17 5129 - 73584 18 1765 - 24055 Stevan ECLIA methodology 29 Please note: The following may produce a false positive D Dimer test: - Rheumatoid factor greater than 1400 IU/ml - Plasma hemoglobin greater than 0.5 gm/dl - Bilirubin greater than 18 mg/dl - Triglycerides greater than 1327 mg/dl - FDP greater than 10 ug/ml . 30 If is still suspected, please repeat test after 48 to 72 hours. . This test detects intact HCG only and is indicated for the early detection of . 31 Anion gap measurement may be of limited value in the presence of any alkalosis, especially in a combined acid base disorder. . 32 A metabolite of Naproxen, O-desmethylnaproxen, has been shown to interfere with the Jendrassik-Irrigon method for measuring total bilirubin. Samples from patients who have taken Naproxen have shown spurious elevation in total bilirubin levels. 33 Because ethnic data is not always readily [...] 15-29 5 Kidney failure <15 (or dialysis) 34 New Reference Range and Interpretation effective 02/17/2002 TnI (ng/ml) INTERPRETATION Less Than 0.06 ng/mL NOT SUPPORTIVE OF DIAGNOSIS OF TN 0.06 - 0.50 ng/ml INDETERMINATE: SUGGEST SERIAL STUDIES IF CLINICALLY INDICATED. Greater than 0.5 ng/mL CONSISTENT WITH DIAGNOSIS OF TN . 35 Recommended INR for Patients on Oral Anticoagulants Prophylaxis 2.0 - 3.0 Treatment of thrombosis 2.0 - 3.0 Prevention of embolism 2.0 - 3.0 Prevention of embolism from prosthetic heart valves 2.5 - 3.5 36 DIAGNOSIS,TREATMENT,AND THERAPY MUST BE BASED ON THE INR VALUE ALONE. 37 Recent studies consider the lower limit of 32.0 ng/mL to be a threshold for optimal health. Dayne GORMAN. J Nutr. 2005 Jun;135(2):317-22. 38 [employer] DEPARTMENT OF PATHOLOGY or Extension 9158 PURCHASING ASSISTANT CYTOLOGY REPORT PATIENT: EVENS MIGUEL : 1985 AGE: 25 Y SEX: F ACCT: [id number] PROCEDURE DATE: 10/27/2010 DATE RECEIVED: 10/28/2010 REQUESTING PHYSICIAN: JO MAGALLON MD LOCATION: [facility] Case No. [id number] PATIENT DATA: [id number] SPECIMEN SUBMITTED: * * (HPVII) THIN PREP [...] and false-negative reports do occur. Performed @ [employer] [address] [place] [address] 39 No significant growth. 40 [employer] DEPARTMENT OF PATHOLOGY or Extension 8973 PURCHASING ASSISTANT CYTOLOGY REPORT PATIENT: EVENS MARTINEZ : 1985 AGE: 24 Y SEX: F ACCT: [id number] PROCEDURE DATE: 07/10/2009 DATE RECEIVED: 07/12/2009 REQUESTING PHYSICIAN: JO MAGALLON MD LOCATION: [facility] Case No. [id number] PATIENT DATA: [id number] SPECIMEN SUBMITTED: * * (HPVII) THIN PREP [...] are examined with an FDA-approved location-guidance system (30854). Performed @ [employer] [address] [place] [address] "" 41 Recent studies consider the lower limit of 32.0 ng/mL to be a threshold for optimal health. Dayne GORMAN. J Nutr. 2004;135(2):317-22. Procedures Date Code Description Status 10/01/2017 13072 Remove Intrauterine Device Completed 09/14/2017 89272 Insertion of intrauterine device (IUD) Completed 06/01/2017 63349 Remove Intrauterine Device Completed 10/08/2015 69042 Pulse Oximetry Completed 04/24/2014 04372 Pulse Oximetry Completed Encounters Type Date Location Provider Dx Diagnosis Office Visit 06/03/2018 [facility] Office Reva K21.9 Gastro-esophageal 2:30p Terrell, EMERGENCY MEDICAL TECHNICIAN reflux disease without esophagitis K59.00 Constipation, unspecified E66.9 Obesity, unspecified R53.83 Other fatigue M25.532 Pain in left wrist Office Visit 12/21/2017 5:30p Main Office Reva Tejada, M25.561 Pain in right EMERGENCY MEDICAL TECHNICIAN knee W01.10xA Fall same lev from slip/trip w strike agnst unsp obj, init Office Visit 10/01/2017 4:15p Main Office Reva Z30.432 Encounter for Terrell, EMERGENCY MEDICAL TECHNICIAN removal of intrauterine contraceptive device N93.9 Abnormal uterine and vaginal bleeding, unspecified Office Visit 09/14/2017 3:30p Main Office Reva Z30.430 Encounter for Terrell, EMERGENCY MEDICAL TECHNICIAN insertion of intrauterine contraceptive device Office Visit 08/31/2017 6:30p Main Office Reva N93.9 Abnormal uterine Terrell, EMERGENCY MEDICAL TECHNICIAN and vaginal bleeding, unspecified Z30.09 Encounter for oth general coun and advice on contraception Office Visit 06/08/2017 3:15p [facility] Office Nissa Wright N93.9 Abnormal uterine Davis, [employer] and vaginal bleeding, unspecified R42 Dizziness and giddiness Office Visit 06/01/2017 6:00p Main Office Reva Tejada, EMERGENCY MEDICAL TECHNICIAN R05 Cough E66.9 Obesity, unspecified K21.9 Gastro-esophageal reflux disease without esophagitis Z30.09 Encounter for oth general coun and advice on contraception R21 Rash and other nonspecific skin eruption B36.0 Pityriasis versicolor Z30.432 Encounter for removal of intrauterine contraceptive device Office Visit 04/19/2017 9:45a [facility] Nissa Wright J20.9 Acute bronchitis, Ryan [employer] unspecified L23.9 Allergic contact dermatitis, unspecified cause Office Visit 04/16/2017 4:00p [facility] Reva Tejada, EMERGENCY MEDICAL TECHNICIAN R05 Cough E66.9 Obesity, unspecified K21.9 Gastro-esophageal reflux disease without esophagitis Office Visit 02/01/2017 5:00p Main Office Shila Davis, Z00.00 Encntr for general M.D. adult medical exam w/o abnormal findings E66.9 Obesity, unspecified G47.33 Obstructive sleep apnea (adult) (pediatric) R20.0 Anesthesia of skin A69.20 Lyme disease, unspecified F41.9 Anxiety disorder, unspecified Z23 Encounter for immunization H69.93 Unspecified Eustachian tube disorder, bilateral Office Visit 11/27/2016 Main Office Nissa Wright S30.861D Insect bite 10:30a MIRTA Davis (nonvenomous) of abdominal wall, subs encntr Office Visit 09/23/2016 [facility] Shila Davis, F33.0 Major depressive 4:40p Office M.D. disorder, recurrent, mild G44.209 Tension-type headache, unspecified, not intractable J06.9 Acute upper respiratory infection, unspecified M62.00 Separation of muscle (nontraumatic), unspecified site Office Visit 08/05/2016 3:00p Main Office Meredith Chi, J01.90 Acute sinusitis, EMERGENCY MEDICAL TECHNICIAN unspecified N76.0 Acute vaginitis Office Visit 06/16/2016 2:40p Main Office Shila Davis, F33.0 Major depressive M.D. disorder, recurrent, mild G44.209 Tension-type headache, unspecified, not intractable Office Visit 02/27/2016 5:20p Main Office Shila Davis, F33.0 Major depressive M.D. disorder, recurrent, mild Office Visit 02/05/2016 4:30p Main Office Shaila Kraus, M70.61 Trochanteric [employer] bursitis, right hip Office Visit 01/16/2016 5:00p Main Office Shila Davis, Z00.01 Encounter for Avril general adult medical exam w abnormal findings F43.22 Adjustment disorder with anxiety Office Visit 11/21/2015 9:45a Main Office Shaila Kraus, [employer] M54.5 Low back pain M54.2 Cervicalgia M79.672 Pain in left foot Y93.89 Activity, other specified Y92.[address] in single-family (private) house as place Office Visit 10/08/2015 6:45p Main Office Kiersten Moses K64.8 Other hemorrhoids Afnp-C R06.02 Shortness of breath Z13.1 Encounter for screening for diabetes mellitus R21 Rash and other nonspecific skin eruption Office Visit 08/14/2015 3:15p Hayden Ardon R29.4 Clicking hip Office KEVON Tejada Office Visit 07/15/2015 3:50p [facility] Shila Davis, K64.8 Other hemorrhoids Office M.D. Office Visit 04/24/2014 7:15p Main Office Kiersten Moses, 465.8 Upper Respiratory Afnp-C Infections Acute Other Multiple Sites Office Visit 03/14/2014 4:30p Main Office Shirley 112.1 Candidiasis [facility] [place], Vulva & Vagina Afnp-C Office Visit 01/05/2014 9:30a Main Office Francisca Vu V74.1 Screening Avril Mead Examination Pulmonary Tuberculosis Office Visit 12/18/2013 7:00p Main Office Shaila Kraus, 789.04 Pain Abdominal [employer] Left Lower Quadrant 719.47 Pain Joint Ankle & Foot Office Visit 08/21/2013 11:30a Main Office Shirley Gay, 388.72 Otalgia Referred Afnp-C Pain 723.1 Cervicalgia Office Visit 01/03/2013 2:10p Main Office Francisca Vu V70.0 Examination General Avril Mead Medical Routine AT [facility] 564.09 Constipation Other V22.2 State Incidental Normal 791.7 Cells & Casts In Urine Other Office Visit 12/07/2012 Hayden Ardon 626.0 Menstruation Absence 1:30p Office Terrell, EMERGENCY MEDICAL TECHNICIAN Office Visit 08/29/2012 Main Office Francisca Vu 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 Other 278.00 Obesity Unspec Office Visit 06/07/2012 7:30p Main Office Kiersten Moses, 461.8 Sinusitis Acute Afnp-C Other 307.49 Sleep Disorder Other Office Visit 03/02/2012 9:45a Main Office Meredith Chi, 626.0 Menstruation Absence EMERGENCY MEDICAL TECHNICIAN V04.81 Need For Prophylactic Vaccination & Inoculation/Influenza Office Visit 10/02/2011 11:40a Main Office Jo Magallon, 786.50 Pain Chest Unspec M.D. 309.24 Adjustment Disorder With Anxiety V25.09 Contraceptive Management Other 692.9 Eczema NOS, Contact Dermatitis NOS 780.57 Unspecified Sleep Apnea Office Visit 08/20/2011 9:15a [facility] Kiersten Moses, 477.9 Rhinitis Afnp-C Allergic Cause Unspec 462 Pharyngitis Acute Office Visit 04/22/2011 2:10p [facility] Kyle An 382.9 Otitis Media Avril Bjearano Unspec Office Visit 01/21/2011 8:40p Main Office Jo Castellanos 784.7 Epistaxis Avril Magallon v04.81 Need For Prophylactic Vaccination & Inoculation/Influenza Office Visit 01/07/2011 1:15p [facility] Jo Castellanos V74.1 Screening Avril Magallon Examination Pulmonary Tuberculosis Office Visit 01/05/2011 11:00a [facility] Jo Castellanos V65.49 Counseling Other Avril Magallon Spec 278.00 Obesity Unspec v06.5 Tetanus Diphtheria (DT) v74.1 Screening Examination Pulmonary Tuberculosis Office Visit 10/27/2010 8:00a [facility] Jo Castellanos V70.0 Examination Avril Magallon General Medical Routine [facility] V25.09 Contraceptive Management Other 110.5 Dermatophytosis Body 477.0 Rhinitis Allergic Due To Pollen 268.9 Vitamin D Deficiency Unspec 791.7 Cells & Casts In Urine Other Office Visit 07/14/2010 8:20a [facility] Jo Castellanos V25.09 Contraceptive Avril Magallon Management Other 110.5 Dermatophytosis Body Office Visit 03/14/2010 2:40p Main Office Jo Mgaallon, 788.41 Urinary Frequency M.DAntonino V04.81 Need For Prophylactic Vaccination & Inoculation/Influenza Office Visit 02/26/2010 [facility] Reva von 448.1 Nevus Non-Neoplastic 2:15p Office Avril Padilla Office Visit 09/11/2009 Main Office Jo Castellanos V25.09 Contraceptive 6:30p Avril Magallon Management Other 268.9 Vitamin D Deficiency Unspec Office Visit 07/10/2009 6:00p Main Office Jo Magallon, V70.0 Examination General M.DAntonino Medical Routine AT [facility] V25.09 Contraceptive Management Other 268.9 Vitamin D Deficiency Unspec 787.02 Nausea Alone 791.7 Cells & Casts In Urine Other Office Visit 05/29/2009 1:30p Main Office Shirley Gay, 327.23 Obstructive Sleep Afnp-C Apnea Adult Pediatric 719.47 Pain Joint Ankle & Foot 787.02 Nausea Alone Plan of Treatment 08/23/2018 - Nissa Davis, NPN60.42 Mammary duct ectasia of left breastComments:NSAIDs MassageHot Packs patient instructed to call back if condition fails to improve or worsens. should show improvement by end of the weekAllComments:Medication Management Patient Understands medications he 's taking? Yes No Are there Barriers to Adherence? Yes No Has the patient been asked about herbal supplements and therapies, andOTC meds? Yes No Care Plan1. Patient has been queried about patient's goals/ preferences and functional/lifestyle goals at relevant visits. If relevant, describe: na2. Treatment goals as explained to the patient: above3. Are there barriers to meeting treatment goals? Yes No If Yes, please describe:4. Self-Management goals as described to the patient: Yes NoAs always, we strongly encourage a healthy diet and making physical activity a part of your every day life. If you have questions about how or where to start, please contact the office.Follow up:Please schedule a full annual visit at your earliest convenience Last appointment with : 01/2017
[2018-08-28 13:44] VITALS: BP 114/74
[2018-08-28 14:18] LABS: Influenza A Molecular NEGATIVE (Negative); Influenza B Molecular NEGATIVE (Negative)
--- NOTE | 2018-08-28 14:32 | UC ---
Respiratory Complaint HPI - HPI Summary HPI Summary: states has had URI symps for 4 weeks, using OTC meds which are not helping. cough worse over past 3 days, now chest webster with cough, very little mucous - History of Current Complaint Chief Complaint: UCRespiratory Stated Complaint: FLU LIKE SYMP Time Seen by Provider: 08/28/18 13:59 Hx Obtained From: Patient Hx Last Menstrual Period: nuvaring in place ?: No Onset/Duration: Gradual Onset Timing: Constant Severity Initially: Mild Severity Currently: Moderate Pain Intensity: 6 Character: Cough: Nonproductive Alleviating Factors: Nothing Associated Signs And Symptoms: Positive: Fever, Nasal Congestion. 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 Negative: Rash Respiratory: Positive: Cough. Negative: Shortness Of Breath Cardiovascular: Positive: Negative Gastrointestinal: Positive: Negative. Negative: Diarrhea, Nausea Neurological: Positive: Negative. Negative: Headache Is Patient Immunocompromised?: No Physical Exam Triage Information Reviewed: Yes Appearance: Obese Vital Signs: Initial Vital Signs Temp 98 F 08/28/18 13:38 Pulse 83 08/28/18 13:38 Resp 18 08/28/18 13:38 BP 114/74 08/28/18 13:38 Pulse Ox 100 08/28/18 13:38 Vital Signs Reviewed: Yes Eyes: Positive: Conjunctiva Clear ENT: Positive: Pharynx normal, Nasal congestion, TMs normal Neck exam: Normal Neck: Positive: No Lymphadenopathy Respiratory: Positive: Lungs clear, Other: - deep, dry cough heard on exam. Negative: Respiratory distress Cardiovascular Exam: Normal Cardiovascular: Positive: RRR Neurological Exam: Normal Neurological: Positive: Alert Skin Exam: Normal Skin: Negative: Rashes Respiratory Course/Dx - Differential Dx/Diagnosis Differential Diagnosis/HQI/PQRI: Asthma, Bronchitis, Influenza, Sinusitis Provider Diagnosis: Bronchitis Discharge - Sign-Out/Discharge Documenting (check all that apply): Patient Departure All imaging exams completed and their final reports reviewed: No Studies - Discharge Plan Condition: Good Disposition: HOME Prescriptions: Azithromycin TAB* [Zithromax TAB (Z-JAMEE) 250 mg #6 tabs] 2 tab PO .TODAY, THEN 1 DAILY #1 jamee Patient Education Materials: Acute Bronchitis (ED) Referrals: Shila Davis MD [Primary Care Provider] - 3 Days (if no better) Additional Instructions: drink plenty of fluids and rest start antibiotic use Tylenol or ibuprofen for pain and fever Use Robitussin cough syrup for cough relief - Billing Disposition and Condition Condition: GOOD Disposition: Home - Attestation Statements Provider Attestation: I was available for consult. This patient was seen by the GENE. The patient was not presented to , seen by or examined by hi -Evelina Shultz MD
== END 2018-08-28 14:49 | disposition home or self-care (01) ==
LOC: UCEAST 13:33
DX: J45.909 Unspecified asthma, uncomplicated (principal); R50.9 Fever, unspecified; R09.81 Nasal congestion; I51.9 Heart disease, unspecified; F41.9 Anxiety disorder, unspecified; Z88.8 Allergy status to other drugs, medicaments and biological substances
CPT/HCPCS: 99212; G0463

== ENCOUNTER 2019-01-02 13:20 | Emergency (ER) | payer BC ==
[2019-01-02] MEDS ORDERED: Ketorolac INJ* 30 MG/ML 1 ML VIAL IV PUSH ONE (14:00)
[2019-01-02] MEDS ORDERED: diPHENhydraMINE IV* 50 MG/ML 1 ml VIAL (BENADRYL) IV ONE (14:00)
[2019-01-02] MEDS ORDERED: Metoclopramide IV* 5 MG/ML 2 ML VIAL IV ONE (14:00)
[2019-01-02] MEDS ORDERED: NS 0.9% 1000 ML** 1,000 ML IV ONE (14:00)
[2019-01-02 14:12] LABS: ABS Eosinophils 0.1 10^3/ul (0-0.6); ABS Lymphocytes 2.4 10^3/ul (1.0-4.8); ABS Monocytes 0.4 10^3/ul (0-0.8); ABS Neutrophils 4.4 10^3/ul (1.5-7.7); Eosinophil % 1.5 %; Hematocrit 41 % (35-47); Hemoglobin 13.8 g/dL (12.0-16.0); Mean Corpuscular HGB Conc 34 g/dL (31-36); Mean Corpuscular Hemoglobin 29 pg (27-31); Mean Corpuscular Volume 86 fL (80-97); Mean Platelet Volume 7.4 fL (7.4-10.4); Nucleated Red Blood Cells % 0.1; Platelet Count 307 10^3/uL (150-450); Red Blood Count 4.74 10^6 /uL (3.70-4.87); Red Cell Distribution Width 14 % (10-15); White Blood Count 7.4 10^3/uL (3.5-10.8)
--- NOTE | 2019-01-02 14:20 | ED ---
Neurological HPI - HPI Summary HPI Summary: Patient was seen in at 13:27. Celsa Krishnan called at 13:39. This patient is a 33 year old F presenting to [facility] with a chief complaint of tingling on left side of head since approx 12:45. Patient reports pressure behind left eye, TILLEY, left ear pain, some trouble forming words and dizziness. Pt has a PMHx of sleep apnea - History of Current Complaint Chief Complaint: EDNeurologicalDeficit Stated Complaint: BURNING HOT PAIN IN LEFT SIDE OF HEAD PER PT Time Seen by Provider: 01/02/19 13:27 Hx Obtained From: Patient Hx Last Menstrual Period: nuvaring in place Onset/Duration: Sudden Onset, Started minutes ago Timing: Constant Pain Intensity: 3 Pain Scale Used: 0-10 Numeric Character: Numbness/Tingling Associated Signs and Symptoms: Positive: Headache, Dizziness, Pain - left ear - Allergy/Home Medications Allergies/Adverse Reactions: Allergies Allergy/AdvReac Type Severity Reaction Status Date / Time methylprednisolone Allergy Hives Verified 08/28/18 13:44 PMH/Surg Hx/FS Hx/Imm Hx Endocrine/Hematology History: Denies: Hx Diabetes, Hx Thyroid Disease Cardiovascular History: Denies: Hx Hypertension, Hx Pacemaker/ICD Respiratory History: Reports: Hx Sleep Apnea, Other Respiratory Problems/ Disorders - SLEEP APNEA W/ CPAP X 3 WKS Denies: Hx Asthma, Hx Chronic Obstructive Pulmonary Disease (COPD) GI History: Reports: Other GI Disorders - constant nausea Denies: Hx Ulcer Musculoskeletal History: Reports: Other Musculoskeletal History - Plantars Fasciitis Denies: Hx Rheumatoid Arthritis, Hx Osteoporosis Sensory History: Reports: Hx Contacts or Glasses Denies: Hx Hearing Aid Opthamlomology History: Reports: Hx Contacts or Glasses Neurological History: Reports: Hx Headaches Psychiatric History: Denies: Hx Panic Disorder - ANXIETY - Surgical History Surgery Procedure, Year, and Place: WISDOM TEETH EXTRACTION Infectious Disease History: No Infectious Disease History: Denies: Hx Hepatitis, Hx Human Immunodeficiency Virus (HIV), Traveled Outside the [place] in Last 30 Days - Family History Known Family History: Positive: Cardiac Disease, Diabetes Family History: R & n/C - Social History Lives: With Family Alcohol Use: Rare Hx Substance Use: No Substance Use Type: Reports: None Hx Tobacco Use: No Smoking Status (MU): Never Smoked Tobacco Have You Smoked in the Last Year: No Review of Systems Positive: Other - pos -pressure behind left eye Positive: Other - pos - left ear pain Neurological: Other - pos -of tingling on left side of head, and dizziness Positive: Headache All Other Systems Reviewed And Are Negative: Yes Physical Exam - Summary Physical Exam Summary: Appearance: The patient is well-nourished in no acute distress and in no acute pain. Skin: The skin is warm and dry and skin color reflects adequate perfusion. HEENT: The head is normocephalic and atraumatic. The pupils are equal and reactive. The conjunctivae are clear and without drainage. Nares are patent and without drainage. Mouth reveals moist mucous membranes and the throat is without erythema and exudate. The external ears are intact. The ear canals are patent and without drainage. The tympanic membranes are intact. Neck: The neck is supple with full range of motion and non-tender. There are no carotid bruits. There is no neck vein distension. Respiratory: Chest is non-tender. Lungs are clear to auscultation and breath sounds are symmetrical and equal. Cardiovascular: Heart is regular rate and rhythm. There is no murmur or rub auscultated. There is no peripheral edema and pulses are symmetrical and equal. Abdomen: The abdomen is soft and non-tender. There are normal bowel sounds heard in all four quadrants and there is no organomegaly palpated. Musculoskeletal: There is no back tenderness noted. Extremities are non-tender with full range of motion. There is good capillary refill. There is no peripheral edema or calf tenderness elicited. Neurological: Patient is alert and oriented to person, place and time. The patient has symmetrical motor strength in all four extremities. Cranial nerves are grossly intact. Deep tendon reflexes are symmetrical and equal in all four extremities. Psychiatric: The patient has an appropriate affect and does not exhibit any anxiety or depression. Triage Information Reviewed: Yes Vital Signs On Initial Exam: Initial Vitals Temp Pulse Resp BP Pulse Ox 97.8 F 78 18 128/86 98 01/02/19 13:23 01/02/19 13:23 01/02/19 13:23 01/02/19 13:23 01/02/19 13:23 Vital Signs Reviewed: Yes - [place] Coma Scale Best Eye Response: 4 - Spontaneous Best Motor Response: 6 - Obeys Commands Best Verbal Response: 5 - Oriented Coma Scale Total: 15 Diagnostics - Vital Signs Vital Signs Temp Pulse Resp BP Pulse Ox 01/02/19 13:23 97.8 F 78 18 128/86 98 - Laboratory Lab Results: Lab Results 01/02/19 Range/Units 13:57 WBC 7.4 (3.5-10.8) 10^3/uL RBC 4.74 (3.70-4.87) 10^6 /uL Hgb 13.8 (12.0-16.0) g/dL Hct 41 (35-47) % MCV 86 (80-97) fL MCH 29 (27-31) pg MCHC 34 (31-36) g/dL RDW 14 (10-15) % Plt Count 307 (150-450) 10^3/uL MPV 7.4 (7.4-10.4) fL Neut % (Auto) 59.9 % Lymph % (Auto) 32.0 % [place] % (Auto) 6.0 % Eos % (Auto) 1.5 % Baso % (Auto) 0.6 % Absolute Neuts (auto) 4.4 (1.5-7.7) 10^3/ul Absolute Lymphs (auto) 2.4 (1.0-4.8) 10^3/ul Absolute Monos (auto) 0.4 (0-0.8) 10^3/ul Absolute Eos (auto) 0.1 (0-0.6) 10^3/ul Absolute Basos (auto) 0.0 (0-0.2) 10^3/ul Absolute Nucleated RBC 0.0 10^3/ul Nucleated RBC % 0.1 Result Diagrams: 01/02/19 13:57 01/02/19 13:57 Lab Statement: Any lab studies that have been ordered have been reviewed, and results considered in the medical decision making process. - CT Brain CT CT Interpretation Completed By: Radiologist Summary of CT Findings: Brain CT reveals, per radiologist, IMPRESSION: NO ACUTE INTRACRANIAL PATHOLOGY. ED physician has reviewed this radiology report. - EKG 1407 Cardiac Rate: NL - 72 bpm EKG Rhythm: Sinus Rhythm Summary of EKG Findings: An EKG at 1407 reveals Normal sinus rhythm 72 bpm, normal ST, no ectopy, no STEMI NIH Scale - NIH Scale Level of Consciousness: Alert/Keenly Responsive Ask Patient the Month and His/Her Age: Both Correct Ask Pt to Open/Close Eyes and Oceanographer Geological/Release Non-Paretic Hand: Both Correctly Best Gaze (Only Horizontal Eye Movement): Normal Visual Field Testing: No Visual Loss Facial Paresis-Pt to Smile & Close Eyes or Grimace Symmetry: Normal/Symmetrical Motor Function - Right Arm: No Drift-Holds 10 Seconds Motor Function - Left Arm: No Drift-Holds 10 Seconds Motor Function - Right Leg: No Drift-Holds 10 Seconds Motor Function - Left Leg: No Drift-Holds 10 Seconds Limb Ataxia-Must be out of Proportion to Weakness Present: Absent Sensory (Use Pinprick to Test Arms/Legs/Trunk/Face): Normal Best Language (Describe Picture, Name Items): No Aphasia Dysarthria (Read Several Words): Normal Extinction and Inattention: No Abnormality Total Score: 0 Re-Evaluation - Re-Evaluation First Eval Re-Evaluation Time: 17:20 Comment: Discussed results and plan of care with pt. Course/Dx - Course Course Of Treatment: Ms. Miguel presented with the sudden tingling and numbness of the left side of her occiput about 45 minutes prior to arrival. She was nontoxic in appearance with stable vitals and did complain of a headache in that area. When testing for dysmetria, she clearly moved her left arm much more slowly and haltingly but I do not see true dysmetria. 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 I did give her an NIH stroke scale of 0. I quickly spoke with Dr. Huang who recommended calling a celsa osei and came to the department to evaluate her. He felt that this was probably typical migraine and I treated her thusly with improvement. - Diagnoses Provider Diagnoses: Migraine During the Visit The Following Alert/Code Occurred: Code Krishnan - 13:39 - Physician Notifications Discussed Care Of Patient With: Emre Huang Time Discussed With Above Provider: 13:37 Instructed by Provider To: Other - Discussed case with Dr. Huang; 13:59 - Dr Huang recomends giving pt toradol Discharge - Sign-Out/Discharge Documenting (check all that apply): Patient Departure - Discharge Patient Received Moderate/Deep Sedation with Procedure: No - Discharge Plan Condition: Stable Disposition: HOME Patient Education Materials: Acute Headache (ED) Referrals: Shila Davis MD [Primary Care Provider] - 3 Days Additional Instructions: Follow up with primary care provider within 2-3 days. RETURN TO ED FOR ANY NEW OR WORSENING SYMPTOMS. - Billing Disposition and Condition Condition: STABLE Disposition: Home - Attestation Statements Document Initiated by Niyaibwilda: Yes Documenting Scribe: Christiana Plata Provider For Whom Evangelina is Documenting (Include Credential): Dr. Steve Mattson MD Scribe Attestation: Christiana De Santiago, scribed for Dr. Steve Mattson MD on 01/02/19 at 2006. Scribe Documentation Reviewed: Yes Provider Attestation: The documentation as recorded by the evangelina, Christiana Plata accurately reflects the service I personally performed and the decisions made by me, Dr. Steve Mattson MD Status of Scribe Document: Viewed
[2019-01-02 14:27] LABS: Activated Partial Thrombo Time 42.1 seconds (26.0-38.0); INR 0.97 (0.82-1.09)
[2019-01-02 14:31] LABS: Albumin 4.2 g/dL (3.2-5.2); Albumin/Globulin Ratio 1.6 (1-3); BUN/Creatinine Ratio 17.1 (8-20); Calcium 9.3 mg/dL (8.6-10.3); EGFR African American 106.7 (>60); EGFR Non-African American 88.2 (>60); Globulin 2.6 g/dL (2-4); HDL Cholesterol 37.1 mg/dL; Potassium 4.1 mmol/L (3.5-5.0); Total Bilirubin 0.7 mg/dL (0.2-1.0); Total Protein 6.8 g/dL (6.4-8.9)
--- NOTE | 2019-01-02 15:54 | CONS ---
NEUROLOGY CONSULTATION REPORT: DATE OF CONSULT: 01/02/19 CONSULTING PROVIDER: Kevin Mattson. REASON FOR CONSULT: Headaches. CHIEF COMPLAINT: Head pain. HISTORY OF PRESENT ILLNESS: Mrs. Evens Miguel is a 33-year-old right- handed female who has history of headaches, who presented with numbness sensation on the left side of the face. She had associated symptom of headache. The patient stated that she had a dental procedure done 2 days ago. She noticed numbness sensation that gradually started on the left jaw region and spread to the left cheek as well as the forehead. The onset of symptoms was 45 minutes ago. The pain also radiated to the left temporal and occipital region. Applying pressure to the left back of the head triggers the pain. She denied any focal weakness or paresthesias. She denied any visual disturbance, nausea, vomiting, dizziness, or vertigo. She has never had any similar symptoms in the past. She had a code osei activated due to concern that she had slow movements of the left arm to sewryx-oa-wala movement. NIH stroke scale 0. CT head without contrast showed no evidence of acute intracranial abnormality, but this is in a region between the brainstem and the occipital lobe, which could just be anatomical variation of this image. Her headache severity is currently 7/10. This is not the worse headache of her life. PAST MEDICAL HISTORY: Obstructive sleep apnea and overweight. HOME MEDICATIONS: None listed. FAMILY HISTORY: Mother with epilepsy. 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 She is . She has 2 children. Of note, the patient was babysitting her nieces and nephews yesterday and maybe contributing some of her symptoms to be related to stressors. She denied any tobacco or alcohol use. REVIEW OF SYSTEMS: A 14-point review of systems was obtained, otherwise negative except what was mentioned in HPI. PHYSICAL EXAM: Vitals: Temperature 97.8, pulse of 70, respiratory rate of 18, oxygen saturation of 98%, blood pressure of 128/86. General: A well-nourished , well-developed female in no acute distress. Head: Atraumatic, normocephalic. There is point tenderness in the left occipital notch region radiating to the left temporal region. This was provoked by deep palpation. Eyes: Conjunctivae/corneas are clear. Neck is supple and symmetrical with no carotid bruit. Cardiovascular: Regular rate and rhythm with normal S1, S2. Chest: Clear to auscultation bilaterally with no wheezing. Extremities: Normal range of motion with no cyanosis. Skin: No skin lesions or laceration. Psych: Affect is broad, normal mood, easy to establish rapport. Neurological Examination: The patient is alert and oriented to person, place, time, and general circumstance. Speech and language including repetition, comprehension were assessed and found to be normal. Cranial Nerves: Pupils equal and reactive to light. Extraocular muscles are intact. Normal confrontation testing. Normal sensation to light touch in face bilaterally. No facial asymmetry. The patient does have baseline slight facial symmetry where 1 eye typically has a delay when it closes compared to the opposite side. I suspect this is in the area on the left side, but there is no evidence of clear facial asymmetry. There is no evidence of loss of the nasolabial fold. Tongue is symmetrical and midline with no atrophy or fasciculation. Motor examination 5/5 in the upper and lower extremities. She may have had slow movements of the left upper extremity but that is where the IV access was placed. Reflexes 2+ throughout the upper and lower extremity with 1+ at the ankles bilaterally. Sensation: Normal light touch and pinprick throughout. Coordination: Normal [id number] and heel- to-hutchins bilaterally. Gait: No ataxia, normal stance, and posture. ASSESSMENT AND RECOMMENDATION: Mrs. Evens Miguel is a 33-year-old female who presents with headaches and left facial numbness. The symptoms of numbness have resolved, but the headaches still persist. ABCD2 score is 0. She has no risk factor for stroke or transient ischemic attack. Therefore, I suspect her symptoms are related to a complicated migraine or occipital neuralgia on the left side. I recommend pain management per the primary team. Try NSAIDs like Toradol to help with the headache. If she still experiences paresthesia, gabapentin or an occipital nerve block should be considered. If her symptoms persist or if she develops any new neurological deficits, the patient will need to be admitted for further evaluation with MRI of the brain and MRA head and neck. Defer further management and discharge planning to the ED staff. [id number] #: [id number] MTDD
[2019-01-02 16:49] LABS: Urine Appearance Clear; Urine Bilirubin Negative (Negative); Urine Blood Negative (Negative); Urine Color Yellow; Urine Glucose Negative (Negative); Urine Ketones Negative (Negative); Urine Nitrite Negative (Negative); Urine Protein Negative (Negative); Urine Specific Gravity 1.009 (1.010-1.030); Urine Urobilinogen Negative (Negative)
[2019-01-02 18:04] VITALS: BP 108/73
== END 2019-01-02 17:55 | disposition home or self-care (01) ==
LOC: ED 13:20
DX: G43.909 Migraine, unspecified, not intractable, without status migrainosus (principal); Z88.8 Allergy status to other drugs, medicaments and biological substances; F41.9 Anxiety disorder, unspecified; G47.33 Obstructive sleep apnea (adult) (pediatric)
CPT/HCPCS: 36415; 70450; 80053; 80061; 81003; 83605; 84484; 85025; 85610; 85730; 93005; 96361; 96374; 96375; 99284; J1200; J1885; J2765

== ENCOUNTER 2019-03-03 16:44 | Emergency (ER) | payer BC, OTHER ==
--- OUTSIDE RECORDS SUMMARY | 2019-03-03 16:50 | XMS REPORT | Continuity of Care Document ---
:1985 External Reference #:[id number] Author Name KEVON Fiore Address [address] [place] [address] Care Team Providers Name Role Phone Artur Cordero MD - Care Team Information Bead Machine Operator [phone] Otolaryngology [facility] - Sleep Disorder Care Team Information Bead Machine Operator Diagnostic Jordy Thomas - Outpatient Therapist Care Team Information Bead Machine Operator Shila Davis M.D. - Family Medicine Care Team Information Bead Machine Operator Unavailable [facility] - Physical Care Team Information Bead Machine Operator Therapist Nissa Davis NP - Family Care Team Information Bead Machine Operator Problems Active Problems Provider Date Mild recurrent major depression Shila Davis M.D. Onset: 02/27/2016 Social History Type Date Description Comments Sex Unknown Tobacco Use Start: Unknown Never Smoked Cigarettes Smoking Status Reviewed: 08/23/18 Never Smoked Cigarettes ETOH Use Rare Recreational Drug Use Denies Drug Use Tobacco Use Start: Unknown Patient has never smoked Allergies, Adverse Reactions, Alerts Active Allergies Reaction Severity Comments Date Methylprednisolone rash 04/19/2017 Inactive Allergies Nka 05/29/2009 NKDA 01/05/2011 Medications Active Medications SIG Qnty Indications Ordering Provider Date Velma Allergy 1 po daily 90tabs J30.9 Reva 01/06/2019 60mg Terrell, [employer] Tablets Sumatriptan 1 by mouth at 9tabs R51 Reva 01/06/2019 Succinate onset of Terrell, [employer] 25mg migraine, may Tablets repeat if migraine not 100% gone in 4 hours, by mouth Feosol 1 by mouth twice 60tabs Reva 06/08/2018 200(65Fe) mg a day Terrell, [employer] Tablets Proair HFA 2 puffs every 4-6 8.500gm J20.9 Nissa Adriana 04/19/2017 hours as needed MIRTA Davis 108(90Base) mcg/Act for cough Aerosol Famotidine 1-2 tab by mouth 120tabs K21.9 Reva 04/16/2017 40mg every 12 hours as Terrell, [employer] Tablets needed reflux Buspirone HCL 1 tab by mouth 60tabs F41.9 Reva 02/01/2017 7.5mg twice a day as Terrell, [employer] Tablets needed Multi Adult Gummies 2 qd Unknown Chewtabs Flonase Allergy 1 spray to each Unknown Relief nostril every day 50mcg/Act Suspension Medications Administered in Office Medication SIG Qnty Indications Ordering Provider Date TB Intradermal Test Francisca Mead M.D. 01/03/2014 Injection TB Intradermal Test Jo Magallon M.D. 01/05/2011 Injection TB Intradermal Test Jo Magallon M.D. 02/18/2010 Injection Immunizations CPT Code Status Date Vaccine Reaction Lot # 46933 Given 02/01/2017 Influenza Vac, Quadrivalent, Slit [id number] [address] Given 04/02/2014 DO Not Use Split Influenza Virus [facility] Vaccine 82249 Given 03/02/2012 Preservative free flu 3 yrs+ and older [id number] 65387 Given 01/21/2011 DO Not Use Split Influenza Virus [id number] Vaccine 09744 Given 01/05/2011 Tdap Tetanus, W Pertussis [id number] 70041 Given 03/14/2010 DO Not Use Split Influenza Virus [id number] Vaccine Vital Signs Date Vital Result Comment 01/06/2019 9:37am BP Systolic 120 mmHg BP Diastolic 70 mmHg Heart Rate 80 /min Body Temperature 98.1 F Respiratory Rate 12 /min Height 65 inches 5'5" measured Weight 241.00 lb BMI (Body Mass Index) 40.1 kg/m2 08/23/2018 2:48pm BP Systolic 98 mmHg BP Diastolic 70 mmHg Heart Rate 92 /min Body Temperature 98.6 F Respiratory Rate 17 /min Weight 230.00 lb Results Test Date Facility Test Result H/L Range Note CBC Auto Diff 01/02/2019 [facility] White Blood Count 7.4 10^3/uL Normal 3.5- 10.8 Red Blood Count 4.74 10^6/uL Normal 3.70-4.87 Hemoglobin 13.8 g/dL Normal 12.0-16.0 Hematocrit 41 % Normal 35-47 Mean Corpuscular Volume 86 fL Normal 80-97 Mean Corpuscular Hemoglobin 29 pg Normal 27-31 Mean Corpuscular HGB Conc 34 g/dL Normal 31-36 Red Cell Distribution Width 14 % Normal 10-15 Platelet Count 307 10^3/uL Normal 150-450 Mean Platelet Volume 7.4 fL Normal 7.4-10.4 Abs Neutrophils 4.4 10^3/uL Normal 1.5-7.7 Abs Lymphocytes 2.4 10^3/uL Normal 1.0-4.8 Abs Monocytes 0.4 10^3/uL Normal 0-0.8 Abs Eosinophils 0.1 10^3/uL Normal 0-0.6 Abs Basophils 0.0 10^3/uL Normal 0-0.2 Abs Nucleated RBC 0.0 10^3/uL Granulocyte % 59.9 % Lymphocyte % 32.0 % Monocyte % 6.0 % Eosinophil % 1.5 % Basophil % 0.6 % Nucleated Red Blood Cells % 0.1 Inr/Protime 01/02/2019 [facility] Inr 0.97 Normal 0.82-1.09 1 Laboratory test 01/02/2019 [facility] Partial Thrombo 42.1 seconds High 26.0- 38.0 finding Time PTT Troponin I 0.00 ng/mL <0.04 2 Comp Metabolic Panel 01/02/2019 [facility] Sodium 139 mmol/L Normal 135-145 Potassium 4.1 mmol/L Normal 3.5-5.0 Chloride 105 mmol/L Normal 101-111 Co2 Carbon Dioxide 28 mmol/L Normal 22-32 Anion Gap 6 mmol/L Normal 2-11 Glucose 80 mg/dL Normal 70-100 Blood Urea Nitrogen 13 mg/dL Normal 6-24 Creatinine 0.76 mg/dL Normal 0.51-0.95 BUN/Creatinine Ratio 17.1 Normal 8-20 Calcium 9.3 mg/dL Normal 8.6-10.3 Total Protein 6.8 g/dL Normal 6.4-8.9 Albumin 4.2 g/dL Normal 3.2-5.2 Globulin 2.6 g/dL Normal 2-4 Albumin/Globulin Ratio 1.6 Normal 1-3 Total Bilirubin 0.70 mg/dL Normal 0.2-1.0 Alkaline Phosphatase 62 U/L Normal 34-104 Alt 19 U/L Normal 7-52 Ast 14 U/L Normal 13-39 Egfr Non- 88.2 >60 Egfr 106.7 >60 3 Lipid Profile (Trig/Chol/HDL) 01/02/2019 [facility] Triglycerides 191 mg/dL 4 Cholesterol 208 mg/dL 5 HDL Cholesterol 37.1 mg/dL 6 LDL Cholesterol 133 mg/dL 7 Laboratory test finding 01/02/2019 [facility] Lactic Acid 0.9 mmol/L Normal 0.5- 2.0 8 Urinalysis Profile 01/02/2019 [facility] Urine Color Yellow Urine Appearance Clear Urine Specific [place] 1.009 Low 1.010-1.030 Urine pH 6.0 Normal 5-9 Urine Urobilinogen Negative Negative Urine Ketones Negative Negative Urine Protein Negative Negative Urine Leukocytes Negative Negative Urine Blood Negative Negative Urine Nitrite Negative Negative Urine Bilirubin Negative Negative Urine Glucose Negative Negative Rapid Influenza A & B 08/28/2018 [facility] Influenza A Molecular NEGATIVE Negative 9 Molecular Influenza B Molecular NEGATIVE Negative 1 Standard intensity warfarin therapeutic range: 2.0-3.0 High intensity warfarin therapeutic range: 2.5-3.5 2 Troponin-I testing on Plasma Separator Tubes (PST) has a known false positive rate of 0.20-0.40%. All positive troponins reflex immediately to secondary confirmatory testing. Using the Order[employer] DxI 800 Access Immunoassay systems, the 99th percentile upper reference limit was demonstrated to be < 0.03 ng/mL. 3 Because ethnic data is not always readily [...] 15-29 5 Kidney failure <15 (or dialysis) 4 Desirable: <150 Borderline High: 150-199 High: 200-499 Very High: >500 5 Desirable: <200 Borderline High: 200-239 High: >239 6 Low: <40 Desirable: 40-60 High: >60 7 Desirable: <100 Near Optimal: 100-129 Borderline High: 130-159 High: 160-189 Very High: >189 8 [facility] Severe Sepsis and Septic Shock Management Bundle Measure requires all lactic acids initially measuring >2.0 mmol/L be repeated. 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 01/06/2019 J30.9 Allergic rhinitis, unspecified Reva Terrell, [facility] 01/06/2019 K21.9 Gastro-esophageal reflux disease without Reva Tejada , [facility] esophagitis 01/06/2019 K59.00 Constipation, unspecified Reva Terrell, [facility] 01/06/2019 E66.9 Obesity, unspecified Reva Terrell, 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 Nissa Davis NP Plan of Treatment Future Appointment(s):04/11/2019 3:45 pm - KEVON iFore at Main [place]4601/06/2019 - NALINI Fiore51 HeadacheNew Medication:Sumatriptan Succinate 25 mg - 1 by mouth at onset of migraine, may repeat if migraine not 100% gone in 4 hours, by mouthComments:Switch to extra strength Tylenol or excedrin migraine as much as possible for treatment of headachesRoutine use of nsaids is associated with more headaches overall, total bummer, but pull off these drugs as best you canMagnesium supplementation helps: aims for 900 -1200 mg daily but go slow-- it will make you poo so you need to habituate your body to it slowly (3 weeks)[place] 3 fatty acids may help-- find one that's cheaper [id number] and dose daily for a month or so before you see improvementDaily journalling of your life may help: most young women can learn the triggers for their headaches if we study the headaches and your lifestyleConsider documenting: food, drink, sleep, stress, menses, exercise, weather, the headaches, and what you do about themAt the end of the month you might see a jvpknG98.9 Allergic rhinitis, unspecifiedNew Medication:Velma Allergy 60 mg - 1 po dailyComments:Trial hvtjoymS99.9 Gastro-esophageal reflux disease without esophagitisComments:XwmoiuT84.00 Constipation, unspecifiedComments:KkzbswU10.9 Obesity, unspecifiedComments:Wt loss advised; several barriers miapihmymP78.00 Encounter for general adult medical examination without abnormal findingsNew Labs:Lipid Panel-[facility], Ordered: 01/06/19[facility] ([facility]), Ordered: 01/06/19Comments:Generally healthy, screenings and immunizations currentPap next year, here or at OB/ GYNAllComments:Medication Management Patient Understands medications he 's taking? Yes No Are there Barriers to Adherence? Yes No Has the patient been asked about herbal supplements and therapies, andOTC meds? Yes No As always, we strongly encourage a healthy diet and making physical activity a part of your every day life. If you have questions about how or where to start, please contact the office. Functional Status Description No Information Available Mental Status Description No Information Available Referrals Description No Information Available
--- OUTSIDE RECORDS SUMMARY | 2019-03-03 16:50 | XMS REPORT | Continuity of Care Document ---
:1985 External Reference #:[id number] Author Name Thor Gross Address [address] [place] [address] Care Team Providers Name Role Phone Artur Cordero MD - Care Team Information Director Enterprise Sales [phone] Otolaryngology [facility] - Sleep Disorder Care Team Information Director [employer] [phone] Diagnostic Jordy Thomas - Broker In Charge Care Team Information Director [employer] [phone] Shila Davis M.D. - Family Medicine Care Team Information Director Enterprise [employer] Unavailable [facility] - Physical Care Team Information Director [employer] Therapist Nissa Davis NP - Family Care Team Information Director [employer] [phone] Problems Active Problems Provider Date Mild recurrent [...] daily 90tabs J30.9 Reva 01/06/2019 60mg Terrell, [employer] Tablets Sumatriptan 1 by mouth at 9tabs R51 Reva 01/06/2019 Succinate onset of Terrell, [employer] 25mg migraine, may Tablets repeat if migraine not 100% gone in 4 hours, by mouth Feosol 1 by mouth twice 60tabs Reva 06/08/2018 200(65Fe) mg a day Terrell, [employer] Tablets Proair HFA 2 puffs every 4-6 8.500gm J20.9 Nissa Adriana 04/19/2017 hours as needed MIRTA Davis 108(90Base) mcg/Act for cough Aerosol Famotidine 1-2 tab by mouth 120tabs K21.9 Reva 04/16/2017 40mg every 12 hours as Terrell, [employer] Tablets needed reflux Buspirone HCL 1 tab by mouth 60tabs F41.9 Reva 02/01/2017 7.5mg twice a day as Terrell, [employer] Tablets needed Multi Adult Gummies 2 qd [...] Code Status Date Vaccine Reaction Lot # 67709 Given 02/01/2017 Influenza Vac, Quadrivalent, Slit [id number] [place] [address] Given 04/02/2014 DO Not Use Split Influenza Virus [facility] Vaccine 16104 Given 03/02/2012 Preservative free flu 3 yrs+ and older [id number] 33482 Given 01/21/2011 DO Not Use Split Influenza Virus [id number] Vaccine 45649 Given 01/05/2011 Tdap Tetanus, W Pertussis [id number] 31547 Given 03/14/2010 DO Not Use Split Influenza Virus [id number] Vaccine Vital Signs Date Vital Result Comment 01/25/2019 4:22pm BP Systolic 120 mmHg BP Diastolic 82 mmHg Heart Rate 80 /min Body Temperature 98.1 F Respiratory Rate 16 /min Height 65 inches 5'5" measured Weight 241.00 lb BMI (Body Mass Index) 40.1 kg/m2 01/06/2019 9:37am BP Systolic 120 mmHg BP Diastolic 70 mmHg Heart Rate 80 /min Body Temperature 98.1 F Respiratory Rate 12 /min Height 65 inches 5'5" measured Weight 241.00 lb BMI (Body Mass Index) 40.1 kg/m2 Results Test Date Facility Test Result H/L Range Note CBC Auto Diff 01/02/2019 [facility] White Blood Count 7.4 10^3/uL Normal 3.5- [...] Red Blood Cells % 0.1 Inr/Protime 01/02/2019 [facility] Inr 0.97 Normal 0.82-1.09 1 Laboratory test 01/02/2019 [facility] Partial Thrombo 42.1 seconds High 26.0- 38.0 finding Time PTT Troponin I 0.00 ng/mL <0.04 2 Comp Metabolic Panel 01/02/2019 [facility] Sodium 139 mmol/L Normal 135-145 Potassium 4.1 [...] 106.7 >60 3 Lipid Profile (Trig/Chol/HDL) 01/02/2019 [facility] Triglycerides 191 mg/dL 4 Cholesterol 208 mg/dL 5 HDL Cholesterol 37.1 mg/dL 6 LDL Cholesterol 133 mg/dL 7 Laboratory test finding 01/02/2019 [facility] Lactic Acid 0.9 mmol/L Normal 0.5- 2.0 8 Urinalysis Profile 01/02/2019 [facility] Urine Color Yellow Urine Appearance Clear Urine Specific [place] 1.009 Low 1.010-1.030 Urine pH 6.0 Normal 5-9 Urine Urobilinogen Negative Negative Urine Ketones Negative Negative Urine Protein Negative Negative Urine Leukocytes Negative Negative Urine Blood Negative Negative Urine Nitrite Negative Negative Urine Bilirubin Negative Negative Urine Glucose Negative Negative Rapid Influenza A & B 08/28/2018 [facility] Influenza A Molecular NEGATIVE Negative 9 Molecular Influenza B Molecular NEGATIVE Negative 1 Standard intensity warfarin therapeutic range: 2.0-3.0 High intensity warfarin therapeutic range: 2.5-3.5 2 Troponin-I testing on Plasma Separator Tubes (PST) has a known false positive rate of 0.20-0.40%. All positive troponins reflex immediately to secondary confirmatory testing. Using the IllumitexI 800 Access Immunoassay systems, the 99th percentile [...] 130-159 High: 160-189 Very High: >189 8 [place] Severe Sepsis and Septic Shock Management Bundle Measure requires all lactic acids initially measuring >2.0 mmol/L be repeated. 9 Social Sciences Professor: [id number] Procedures Description No Information Available Medical Devices Description No Information Available Encounters Type Date Location Provider Dx Diagnosis Office Visit 01/06/2019 9:30a Main Office Reva Tejada, [facility] R51 Headache J30.9 Allergic rhinitis, unspecified K21.9 Gastro-esophageal reflux disease without esophagitis K59.00 Constipation, unspecified E66.9 Obesity, unspecified Z00.00 Encntr for general adult medical exam w/o abnormal findings Office Visit 08/23/2018 3:15p Main Office Nissa Wright N60.42 Domingo Davis NP ectasia of left breast Assessments Date Code Description Provider 01/25/2019 N91.2 Amenorrhea, unspecified Shirley Gay, [facility] 01/06/2019 R51 Headache Reva Terrell, [employer] 01/06/2019 J30.9 Allergic rhinitis, unspecified Reva Terrell, [employer]ER 01/06/2019 K21.9 Gastro-esophageal reflux disease without Reva Terrell , [employer] esophagitis 01/06/2019 K59.00 Constipation, unspecified Reva Terrell, [employer]ER 01/06/2019 E66.9 Obesity, unspecified Reva Terrell, [employer] 01/06/2019 Z00.00 Encounter for general adult medical Reva Tejada, [facility] examination without abnormal findings 08/23/2018 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 Yes No Are there Barriers to Adherence? Yes No Has the patient been asked about herbal supplements and therapies, and OTC meds? Yes No Care Plan1. Patient has been queried about patient's goals/preferences and functional/lifestyle goals at relevant visits. If relevant, describe: na2. Treatment goals as explained to the patient: abovefurther evaluation of sx 3. Are there barriers to meeting treatmentgoals? Yes No If Yes, please describe:4. Self-Management goals as described to the patient: Yes No this is likely anovulatory , I would weight one more cycle before any progesterone challenge I will check your thyroid and test and f/u pending test results and 1 month if no menses , consider progesterone challenge Functional Status Description No Information Available Mental Status Description No Information Available Referrals Description No Information Available
[2019-03-03 17:08] VITALS: BP 120/85
--- NOTE | 2019-03-03 17:24 | UC ---
Upper Extremity HPI - HPI Summary HPI Summary: 33 yo female presents with RIGHT shoulder injury. She tells me that today at work her hand was propped up on a door and a child jumped on her forearm and her arm with forcefully pulled downward. She had immediate pain in her right shoulder - pain has persisted since that time. She has decreased ROM due to pain. Has not taken anything OTC for her pain today. She is right handed. - History of Current Complaint Chief Complaint: UCUpperExtremity Stated Complaint: ARM INJURY Time Seen by Provider: 03/03/19 17:24 Hx Obtained From: Patient Hx Last Menstrual Period: today Onset/Duration: Sudden Onset Severity Initially: Severe Severity Currently: Severe Pain Intensity: 8 Pain Scale Used: 0-10 Numeric - Allergies/Home Medications Allergies/Adverse Reactions: Allergies Allergy/AdvReac Type Severity Reaction Status Date / Time methylprednisolone Allergy Hives Verified 03/03/19 17:08 Home Medications: Home Medications Fexofenadine/Pseudoephedrine [Velma-D 24 Hour Tablet] 1 tab PO DAILY 03/03/19 [History Confirmed 03/03/19] PMH/Surg Hx/FS Hx/Imm Hx - Additional Past Medical History Additional PMH: Seasonal allergies - Surgical History Surgical History: Yes Surgery Procedure, Year, and Place: WISDOM TEETH EXTRACTION - Family History Known Family History: Positive: Cardiac Disease, Diabetes Family History: R & n/C - Social History Occupation: Employed Full-time Lives: With Family Alcohol Use: Rare Substance Use Type: None Smoking Status (MU): Never Smoked Tobacco Have You Smoked in the Last Year: No - Immunization History Most Recent Influenza Vaccination: fall 2014 Most Recent Tetanus Shot: 04/2015 Most Recent Pneumonia Vaccination: n/a Review of Systems All Other Systems Reviewed And Are Negative: No Constitutional: Positive: Negative Skin: Positive: Negative Respiratory: Positive: Negative Cardiovascular: Positive: Negative Neurovascular: Positive: Negative Musculoskeletal: Positive: Other: - Right shoulder pain Neurological: Positive: Negative Psychological: Positive: Negative Physical Exam - Summary Physical Exam Summary: GENERAL: NAD. WDWN. No pain distress. SKIN: No rashes, sores, lesions, or open wounds. CHEST: No accessory muscle use. Breathing comfortably and in no distress. CV: Pulses intact radial and ulnar. Cap refill <2seconds MSK: RIGHT SHOULDER: TTP about AC joint and pec major origin. Pain in these areas at ~45deg flexion. No edema or obvious bony deformities. Unable to perform specialized testing due to discomfort. RIGHT ELBOW: Mild TTP about olecranon. FROM. NEURO: Alert. Sensations intact hand and all fingers. PSYCH: Age appropriate behavior. Triage Information Reviewed: Yes Vital Signs: Initial Vital Signs Temp 98.4 F 03/03/19 17:02 Pulse 76 03/03/19 17:02 Resp 17 03/03/19 17:02 BP 120/85 03/03/19 17:02 Pulse Ox 98 03/03/19 17:02 Vital Signs Reviewed: Yes Diagnostics - Radiology Shoulder XR Radiology Interpretation Completed By: Radiologist Summary of Radiographic Findings: IMPRESSION: NO ACUTE OSSEOUS INJURY. IF SYMPTOMS PERSIST, RECOMMEND REPEAT IMAGING. Elbow XR Radiology Interpretation Completed By: Radiologist Summary of Radiographic Findings: IMPRESSION: NO ACUTE OSSEOUS INJURY. IF SYMPTOMS PERSIST, RECOMMEND REPEAT IMAGING. Upper Extremity Course/Dx - Course Course Of Treatment: XRs as above. Suspect strain of shoulder with possible AC injury. She was provided with a sling to use for comfort, but advised to be out of this as much as possible and practice gentle ROM exercises to keep the muscles loose. May take tylenol/ibuprofen as directed for discomfort. [facility] if symptoms do not improve or inhibit her work - Differential Dx/Diagnosis Provider Diagnosis: Right shoulder strain Discharge ED - Sign-Out/Discharge Documenting (check all that apply): Patient Departure All imaging exams completed and their final reports reviewed: Yes - Discharge Plan Condition: Stable Disposition: HOME Patient Education Materials: Shoulder Pain (ED) Forms: *Work Release Referrals: Shila Davis MD [Primary Care Provider] - Lalo Barrientos MD [Medical Doctor] - If Needed Additional Instructions: If you develop a fever, shortness of breath, chest pain, new or worsening symptoms - please call your PCP or go to the ED immediately. 1) Rest and ice your shoulder intermittently throughout the day to decrease pain 2) Use the sling for comfort, but try to be out of this and practice gentle range of motion exercises 3) I recommend that you do not lift anything greater than 10 pounds for at least 5 days 4) May take advil/ibuprofen as directed for discomfort 5) If your shoulder pain/range of motion does not improve within 1 week - please call Dr. Barrientos (worker's comp) at the number below to schedule an appointment for further evaluation - Billing Disposition and Condition Condition: STABLE Disposition: Home
== END 2019-03-03 18:05 | disposition home or self-care (01) ==
LOC: UCEAST 16:44
DX: S46.911A Strain of unspecified muscle, fascia and tendon at shoulder and upper arm level, right arm, initial encounter (principal); Z88.8 Allergy status to other drugs, medicaments and biological substances; X58.XXXA Exposure to other specified factors, initial encounter; Y92.9 Unspecified place or not applicable; Y99.0 Civilian activity done for income or pay
CPT/HCPCS: 99212; G0463

== ENCOUNTER 2019-05-28 17:42 | Emergency (ER) | payer BC ==
[2019-05-28] MEDS ORDERED: Ketorolac INJ* 30 MG/ML 1 ML VIAL IV PUSH ONE (17:58)
[2019-05-28] MEDS ORDERED: NS 0.9% 1000 ML** 1,000 ML IV ONE ×2 (17:58→19:18)
[2019-05-28] MEDS ORDERED: Acetaminophen TAB* 325 MG PO ONE (17:59)
--- NOTE | 2019-05-28 18:07 | ED ---
Respiratory - HPI Summary HPI Summary: Pt is a 33 y/o F presenting to the ED with a chief respiratory complaint initially onset a couple of days ago. She states shes been coughing rather aggressively and it hasnt been helped by Dayquil/Nyquil. She also reports fever , chest soreness, pain in her R shoulder, fatigue, wheezing, hot flashes, chills , abd cramping, and diarrhea. She denies vomiting, back or leg pain. - History of Current Complaint Chief Complaint: EDGeneral Stated Complaint: CAUGH ASTHMA/ HURTS TO BREATH PER PT Time Seen by Provider: 05/28/19 17:52 Hx Obtained From: Patient Onset/Duration: Gradual Onset, Lasting Days, Still Present Timing: Constant Initial Severity: Moderate Current Severity: Moderate Pain Intensity: 4 Character: Wheezing, Cough (Nonproductive) Sputum Amount: None Aggravating Factor(s): Nothing Alleviating Factor(s): Nothing Associated Signs and Symptoms: Fever, Chest Pain, Chills - Allergy/Home Medications Allergies/Adverse Reactions: Allergies Allergy/AdvReac Type Severity Reaction Status Date / Time methylprednisolone Allergy Hives Verified 05/28/19 18:04 Home Medications: Home Medications Buspirone HCl 7.5 mg PO BID PRN 05/28/19 [History Confirmed 05/28/19] Famotidine TAB* [Pepcid 20 MG TAB*] 40 mg PO BID 05/28/19 [History Confirmed 05/05] Ferrous Sulfate TAB* 325 mg PO BID 05/28/19 [History Confirmed 05/28/19] Fexofenadine (NF) [Velma (NF)] 60 mg PO DAILY 05/28/19 [History Confirmed 05/05] LORazepam [Lorazepam] 0.5 mg PO BID PRN 05/28/19 [History Confirmed 05/28/19] PMH/Surg Hx/FS Hx/Imm Hx Previously Healthy: Yes Endocrine/Hematology History: Denies: Hx Diabetes, Hx Thyroid Disease Cardiovascular History: Denies: Hx Hypertension, Hx Pacemaker/ICD Respiratory History: Reports: Hx Sleep Apnea, Other Respiratory Problems/ Disorders - SLEEP APNEA W/ CPAP X 3 WKS Denies: Hx Asthma, Hx Chronic Obstructive Pulmonary Disease (COPD) GI History: Reports: Other GI Disorders - constant nausea Denies: Hx Ulcer History: Denies: Hx Renal Disease Musculoskeletal History: Reports: Other Musculoskeletal History - Plantars Fasciitis Denies: Hx Rheumatoid Arthritis, Hx Osteoporosis Sensory History: Reports: Hx Contacts or Glasses Denies: Hx Hearing Aid Opthamlomology History: Reports: Hx Contacts or Glasses Neurological History: Reports: Hx Headaches Psychiatric History: Reports: Hx Panic Disorder - ANXIETY - Surgical History Surgery Procedure, Year, and Place: WISDOM TEETH EXTRACTION Infectious Disease History: No Infectious Disease History: Denies: Hx Hepatitis, Hx Human Immunodeficiency Virus (HIV), Traveled Outside the [place] in Last 30 Days - Family History Known Family History: Positive: Cardiac Disease, Diabetes - Social History Alcohol Use: Rare Hx Substance Use: No Substance Use Type: Reports: None Hx Tobacco Use: No Smoking Status (MU): Never Smoked Tobacco Have You Smoked in the Last Year: No Review of Systems Positive: Fever, Chills, Fatigue Positive: Chest Pain Positive: Cough Positive: Abdominal Pain, Diarrhea. Negative: Vomiting Positive: Arthralgia. Negative: Myalgia - back/leg pain All Other Systems Reviewed And Are Negative: Yes Physical Exam - Summary Physical Exam Summary: Constitutional: Well-developed, Well-nourished, Alert. (-) Distressed Skin: Warm, Dry HENT: Normocephalic; Atraumatic Eyes: Conjunctiva normal Neck: Musculoskeletal ROM normal neck. (-) JVD, (-) Stridor, (-) Tracheal deviation Cardio: Rhythm regular, rate tachycardic, Heart sounds normal; Intact distal pulses; The pedal pulses are 2+ and symmetric. Radial pulses are 2+ and symmetric. (-) Murmur Pulmonary/Chest wall: Effort normal. Dry cough. (-) Respiratory distress, (-) Wheezes, (-) Rales Abd: Soft, (-) tenderness, (-) Distension, (-) Guarding, (-) Rebound Musculoskeletal: (-) Edema Lymph: (-) Cervical adenopathy Neuro: Alert, Oriented x3 Psych: Mood and affect Normal Triage Information Reviewed: Yes Vital Signs On Initial Exam: Initial Vitals Temp Pulse Resp BP Pulse Ox 102.3 F 140 22 130/107 99 05/28/19 17:46 05/28/19 17:46 05/28/19 17:46 05/28/19 17:46 05/28/19 17:46 Vital Signs Reviewed: Yes Procedures - Sedation Patient Received Moderate/Deep Sedation with Procedure: No Diagnostics - Vital Signs Vital Signs Temp Pulse Resp BP Pulse Ox 05/28/19 17:46 102.3 F 140 22 130/107 99 - Laboratory Result Diagrams: 05/28/19 18:10 05/28/19 18:10 Lab Statement: Any lab studies that have been ordered have been reviewed, and results considered in the medical decision making process. - EKG 1750 Cardiac Rate: Tachycardia - 109bpm EKG Rhythm: Sinus Tachycardia ST Segment: Normal Ectopy: None Summary of EKG Findings: EKG at 1750 shows sinus tachycardia at 109bpm with no ischemic changes. Dr. Moser has reviewed and interpreted this EKG. Disposition - Course Course Of Treatment: Pt is a 33 y/o F presenting to the ED with a chief respiratory complaint initially onset a couple of days ago. She states shes been coughing rather aggressively, and also reports fever, chest soreness, pain in her R shoulder, fatigue, wheezing, hot flashes, chills, abd cramping, and diarrhea. She denies vomiting, back or leg pain. On exam, pt is tachycardic, and she has a dry cough without wheezes. Pt positive for Influenza B. Influenza A negative. EKG at 1750 shows sinus tachycardia at 109bpm with no ischemic changes. Dr. Moser has reviewed and interpreted this EKG. Pt will be sent home with dx of Influenza, prescribed Tamiflu and an inhaler, and instructed to f/u with PCP in 2-3 days. She is agreeable with this plan. - Diagnoses Provider Diagnoses: Influenza Discharge ED - Sign-Out/Discharge Documenting (check all that apply): Patient Departure - Discharge Plan Condition: Stable Disposition: HOME Prescriptions: Albuterol HFA INHALER* [Ventolin HFA Inhaler*] 1 - 2 puff INH Q6H PRN #1 mdi PRN Reason: Wheezing Oseltamivir CAP* [Tamiflu CAP*] 75 mg PO BID 5 Days #10 cap Patient Education Materials: Influenza (ED) Referrals: Shila Davis MD [Primary Care Provider] - Additional Instructions: Please take your prescribed medications as instructed. Follow up with your primary care provider within the next 2-3 days. Return to the emergency department with any new or worsening symptoms. - Billing Disposition and Condition Condition: STABLE Disposition: Home - Attestation Statements Document Initiated by Kellen: Yes Documenting Scribe: Hawa Damon Provider For Whom Kellen is Documenting (Include Credential): Jasmeet Moser DO. Scribe Attestation: Hawa De Santiago, vanessaibed for Jasmeet Moser DO. on 05/28/19 at 2141. Scribe Documentation Reviewed: Yes Provider Attestation: The documentation as recorded by the vanessaibe, Hawa Damon accurately reflects the service I personally performed and the decisions made by , Jasmeet Moser DO. Status of Scribe Document: Viewed
[2019-05-28 18:18] LABS: ABS Lymphocytes 0.6 10^3/ul (1.0-4.8); ABS Monocytes 0.4 10^3/ul (0-0.8); ABS Neutrophils 3.8 10^3/ul (1.5-7.7); Eosinophil % 0.3 %; Hematocrit 39 % (35-47); Hemoglobin 13.2 g/dL (12.0-16.0); Lymphocyte % 11.7 %; Mean Corpuscular HGB Conc 34 g/dL (31-36); Mean Corpuscular Hemoglobin 29 pg (27-31); Mean Corpuscular Volume 84 fL (80-97); Mean Platelet Volume 7.4 fL (7.4-10.4); Platelet Count 266 10^3/uL (150-450); Red Blood Count 4.63 10^6 /uL (3.70-4.87); Red Cell Distribution Width 14 % (10-15); White Blood Count 4.8 10^3/uL (3.5-10.8)
[2019-05-28 18:35] LABS: Albumin 4.1 g/dL (3.2-5.2); Albumin/Globulin Ratio 1.5 (1-3); BUN/Creatinine Ratio 9.2 (8-20); Calcium 8.8 mg/dL (8.6-10.3); EGFR African American 91.3 (>60); EGFR Non-African American 75.5 (>60); Globulin 2.7 g/dL (2-4); Potassium 3.6 mmol/L (3.5-5.0); Total Bilirubin 0.3 mg/dL (0.2-1.0); Total Protein 6.8 g/dL (6.4-8.9)
[2019-05-28 18:39] LABS: Influenza B Molecular POSITIVE (Negative)
[2019-05-28] MEDS ORDERED: Albuterol/Ipratropium NEB.SOL* Albuterol 2.5 MG/Ipratropium 0.5 MG 3 ML INH ONE (19:18)
[2019-05-28] MEDS ORDERED: Oseltamivir CAP* 75 MG CAP PO SCH (19:30)
[2019-05-28 21:10] VITALS: BP 109/66
== END 2019-05-28 20:56 | disposition home or self-care (01) ==
LOC: ED 17:42
DX: J11.1 Influenza due to unidentified influenza virus with other respiratory manifestations (principal); F41.9 Anxiety disorder, unspecified; Z79.899 Other long term (current) drug therapy; Z88.8 Allergy status to other drugs, medicaments and biological substances
CPT/HCPCS: 36415; 80053; 85025; 93005; 96361; 96374; 99283; A9270-GY; J1885

== ENCOUNTER 2019-08-16 11:34 | Emergency (ER) | payer OTHER ==
--- OUTSIDE RECORDS SUMMARY | 2019-08-16 11:45 | XMS REPORT | Continuity of Care Document ---
:1985 External Reference #:[id number] Author Name Thor Gross Address [address] [place] [address] Care Team Providers Name Role Phone Artur Cordero MD - Care Team Information Line Construction Supervisor [phone] [place] [facility] [place] [facility] [place] Care Team Information Line Construction Supervisor Diagnostic Jordy Thomas - Parking Regulation Enforcement Officer Care Team Information Line Construction Supervisor Shila Davis M.D. - Family Medicine Care Team Information Line Construction Supervisor [facility] Therapy - Physical Care Team Information Line Construction Supervisor [phone] Therapist Nissa Davis NP - Family Care Team Information Line Construction Supervisor Problems Active Problems Provider Date Mild recurrent major depression Shila Davis M.D. Onset: 02/27/2016 Social History Type Date Description Comments Sex Unknown Tobacco Use Start: Unknown Never Smoked Cigarettes Smoking Status Reviewed: 07/26/19 Never Smoked Cigarettes ETOH Use Rare Recreational Drug Use Denies Drug Use Tobacco Use Start: Unknown Patient has never smoked Allergies, Adverse Reactions, Alerts Active Allergies Reaction Severity Comments Date Methylprednisolone rash 04/19/2017 Flonase TILLEY's - nose bleedss 07/26/2019 Inactive Allergies Nka 05/29/2009 NKDA 01/05/2011 Medications Active Medications SIG Qnty Indications Ordering Provider Date Amoxicillin 1 by mouth three 30tabs Shirley Gay, 07/26/2019 500mg times a day Afnp-C Tablets Lorazepam 1 by mouth twice 14tabs F41.9 Reva 04/18/2019 0.5mg a day as needed Terrell, ACCOUNT INSTALLER Tablets anxiety Velma Allergy 1 po daily 90tabs J30.9 Reva 01/06/2019 60mg Terrell, ACCOUNT INSTALLER Tablets Sumatriptan 1 by mouth at 9tabs R51 Reva 01/06/2019 Succinate onset of Terrell, ACCOUNT INSTALLER 25mg migraine, may Tablets repeat if migraine not 100% gone in 4 hours, by mouth Feosol 1 by mouth twice 60tabs Reva 06/08/2018 200(65Fe) mg a day Terrell, ACCOUNT INSTALLER Tablets Proair HFA 2 puffs every 4-6 8.500gm J20.9 Nissa Adriana 04/19/2017 hours as needed MIRTA Davis 108(90Base) mcg/Act for cough Aerosol Famotidine 1-2 tab by mouth 120tabs K21.9 Reva 04/16/2017 40mg every 12 hours as Terrell, ACCOUNT INSTALLER Tablets needed reflux Buspirone HCL 1 tab by mouth 60tabs F41.9 Reva 02/01/2017 7.5mg twice a day as Terrell, ACCOUNT INSTALLER Tablets needed Multi Adult Gummies 2 qd Unknown Chewtabs Excedrin Migraine 2 tablets every 8 Unknown hours as needed [id number] Tablets for headache Benzonatate 2 caps by mouth Unknown 100mg three times a day Capsules as needed for cough Medications Administered in Office Medication SIG Qnty Indications Ordering Provider Date TB Intradermal Test Francisca Mead M.D. 01/03/2014 Injection TB Intradermal Test Jo Magallon M.D. 01/05/2011 Injection TB Intradermal Test Jo Magallon M.D. 02/18/2010 Injection Immunizations CPT Code Status Date Vaccine Reaction Lot # [id number] Given 02/22/2019 Influenza Vac, Quadriv[place], [place] [address] Given 02/01/2017 Influenza Vac, Quadrivalent, [place] [id number] [address] Given 04/02/2014 DO Not Use Split Influenza Virus [facility] Vaccine 80691 Given 03/02/2012 Preservative free flu 3 yrs+ and older [id number] 49169 Given 01/21/2011 DO Not Use Split Influenza Virus [id number] Vaccine 75191 Given 01/05/2011 Tdap Tetanus, W Pertussis [id number] 55475 Given 03/14/2010 DO Not Use Split Influenza Virus [id number] Vaccine Vital Signs Date Vital Result Comment 07/26/2019 11:35am BP Systolic 142 mmHg BP Diastolic 70 mmHg Heart Rate 80 /min Body Temperature 98.8 F Respiratory Rate 18 /min O2 % BldC Oximetry 98 % Height 65 inches 5'5" measured Weight 242.50 lb BMI (Body Mass Index) 40.3 kg/m2 06/06/2019 4:27pm BP Systolic 118 mmHg BP Diastolic 70 mmHg Heart Rate 66 /min Body Temperature 97.7 F Respiratory Rate 16 /min Height 65 inches 5'5" measured Weight 240.00 lb BMI (Body Mass Index) 39.9 kg/m2 Results Test Acquired Date Facility Test Result H/L Range Note Influenza A & B 05/28/2019 [facility] [place] AB Disclaimer (SEE NOTE) 1 Request Influenza B Molecular POSITIVE Abnormal Negative 2 CBC Auto Diff 05/28/2019 [facility] [place] White Blood Count 4.8 10^3/uL Normal 3.5- 10.8 Red Blood Count 4.63 10^6/uL Normal 3.70-4.87 Hemoglobin 13.2 g/dL Normal 12.0-16.0 Hematocrit 39 % Normal 35-47 Mean Corpuscular Volume 84 fL Normal 80-97 Mean Corpuscular Hemoglobin 29 pg Normal 27-31 Mean Corpuscular HGB Conc 34 g/dL Normal 31-36 Red Cell Distribution Width 14 % Normal 10-15 Platelet Count 266 10^3/uL Normal 150-450 Mean Platelet Volume 7.4 fL Normal 7.4-10.4 Abs Neutrophils 3.8 10^3/uL Normal 1.5-7.7 Abs Lymphocytes 0.6 10^3/uL Low 1.0-4.8 Abs Monocytes 0.4 10^3/uL Normal 0-0.8 Abs Eosinophils 0.0 10^3/uL Normal 0-0.6 Abs Basophils 0.0 10^3/uL Normal 0-0.2 Abs Nucleated RBC 0.0 10^3/uL Granulocyte % 79.1 % Lymphocyte % 11.7 % Monocyte % 8.3 % Eosinophil % 0.3 % Basophil % 0.6 % Nucleated Red Blood Cells % 0.0 Comp Metabolic Panel 05/28/2019 [facility] Sodium 137 mmol/L Normal 135-145 Potassium 3.6 mmol/L Normal 3.5-5.0 Chloride 104 mmol/L Normal 101-111 Co2 Carbon Dioxide 25 mmol/L Normal 22-32 Anion Gap 8 mmol/L Normal 2-11 Glucose 108 mg/dL High 70-100 Blood Urea Nitrogen 8 mg/dL Normal 6-24 Creatinine 0.87 mg/dL Normal 0.51-0.95 BUN/Creatinine Ratio 9.2 Normal 8-20 Calcium 8.8 mg/dL Normal 8.6-10.3 Total Protein 6.8 g/dL Normal 6.4-8.9 Albumin 4.1 g/dL Normal 3.2-5.2 Globulin 2.7 g/dL Normal 2-4 Albumin/Globulin Ratio 1.5 Normal 1-3 Total Bilirubin 0.30 mg/dL Normal 0.2-1.0 Alkaline Phosphatase 56 U/L Normal 34-104 Alt 18 U/L Normal 7-52 Ast 14 U/L Normal 13-39 Egfr Non- 75.5 >60 Egfr 91.3 >60 3 1 Suboptimal collection technique may reduce sensitivity of test. Refer to the [facility] Test Catalog for collection information: [email or web address] As with all diagnostic procedures, the laboratory results obtained should be used in conjunction with other clinical information available to the physician, including confirmation by another method, as applicable. 2 Valet Runner: [id number] 3 Because ethnic data is not always [...] 15-29 5 Kidney failure <15 (or dialysis) Procedures Date Code Description Status 07/26/2019 31898 Pulse Oximetry Completed 04/18/2019 44032 Brief Emotional/Behav Assessment W/ Scoring Doc Per Completed Standard Inst Medical Devices Description No Information Available Encounters Type Date Location Provider Dx Diagnosis Office Visit 06/06/2019 Main Office Reva Tejada, R03.0 Elevated 4:15p ACCOUNT INSTALLER blood-pressure reading, w/o diagnosis of htn F41.9 Anxiety disorder, unspecified G47.00 Insomnia, unspecified Office Visit 04/18/2019 4:00p Main Office Reva Terrell, ACCOUNT INSTALLER R51 Headache N92.6 Irregular menstruation, unspecified F41.9 Anxiety disorder, unspecified G47.00 Insomnia, unspecified Z12.4 Encounter for screening for malignant neoplasm of cervix Assessments Date Code Description Provider 07/26/2019 J01.90 Acute sinusitis, unspecified Devika Gross-C 06/06/2019 R03.0 Elevated blood-pressure reading, without Reva Terrell , ACCOUNT INSTALLER diagnosis of hypertension 06/06/2019 F41.9 Anxiety disorder, unspecified Reva Terrell, ACCOUNT INSTALLER 06/06/2019 G47.00 Insomnia, unspecified Reva Terrell, ACCOUNT INSTALLER 04/18/2019 R51 Headache Reva Terrell, ACCOUNT INSTALLER 04/18/2019 N92.6 Irregular menstruation, unspecified Reva Terrell, ACCOUNT INSTALLER 04/18/2019 F41.9 Anxiety disorder, unspecified Reva Terrell, ACCOUNT INSTALLER 04/18/2019 G47.00 Insomnia, unspecified Reva Terrell, ACCOUNT INSTALLER 04/18/2019 Z12.4 Encounter for screening for malignant Reva Terrell, ACCOUNT INSTALLER neoplasm of cervix Plan of Treatment 07/26/2019 - Devika Gross-CJ01.90 Acute sinusitis, unspecifiedAllNew Medication:Amoxicillin 500 mg - 1 by mouth three times a dayComments:Medication Management Patient Understands medications she's taking? Yes No Are there Barriers to Adherence? Yes No Has the patient been asked about herbal supplements and therapies, and OTC meds? Yes No Care Plan1. Patient has been queried about patient's goals/preferences and functional/lifestyle goals at relevant visits. If relevant, describe: na2. Treatment goals as explained to the patient: abovesx resolution 3. Are there barriers to meeting treatment goals? Yes No If Yes, please describe:4. Self-Management goals as described to the patient: Yes No cont sx rx : rest, vapor, fluids , will cover with antibx , call if no better into next week or if sx worsen Functional Status Description No Information Available Mental Status Description No Information Available Referrals Description No Information Available
--- OUTSIDE RECORDS SUMMARY | 2019-08-16 11:45 | XMS REPORT | Continuity of Care Document ---
:1985 External Reference #:[id number] Author Name Alisson Rdz NP Address [address] [place] [address] Care Team Providers Name Role Phone Artur Cordero MD - Care Team Information Shop Steward [phone] [place]ology [facility] [place] [facility] - Sleep Disorder Care Team Information Shop Steward [phone] Diagnostic Jordy Thomas - Belt Back Operator Care Team Information Shop Steward [phone] Shila Davis M.D. - Family Medicine Care Team Information Shop Steward [phone] Hien Physical Therapy - Physical Care Team Information Shop Steward Therapist Nissa Davis NP - Family Care Team Information Shop Steward Problems Active Problems Provider Date Mild recurrent [...] Medications SIG Qnty Indications Ordering Provider Date Lorazepam 1 by mouth twice 14tabs F41.9 Reva 04/18/2019 0.5mg a day as needed Terrell, HOT IRON WORKER Tablets anxiety Velma Allergy 1 po daily 90tabs J30.9 Reva 01/06/2019 60mg Terrell, HOT IRON WORKER Tablets Sumatriptan 1 by mouth at 9tabs R51 Reva 01/06/2019 Succinate onset of Terrell, HOT IRON WORKER 25mg migraine, may Tablets repeat if migraine not 100% gone in 4 hours, by mouth Feosol 1 by mouth twice 60tabs Shila Davis, 06/08/2018 200(65Fe) mg a day M.D. Tablets Proair HFA 2 puffs every 4-6 8.500gm J20.9 Nissa Adriana 04/19/2017 hours as needed MIRTA Davis 108(90Base) mcg/Act for cough Aerosol Famotidine 1-2 tab by mouth 120tabs K21.9 Reva 04/16/2017 40mg every 12 hours as Terrell, HOT IRON WORKER Tablets needed reflux Buspirone HCL 1 tab by mouth 60tabs F41.9 Reva 02/01/2017 7.5mg twice a day as Terrell, HOT IRON WORKER Tablets needed Multi Adult Gummies 2 qd Unknown Chewtabs Excedrin Migraine 2 tablets every 8 Unknown hours as needed [id number] Tablets for headache Benzonatate 2 caps by mouth Unknown 100mg three times a day Capsules as needed for cough History Medications Amoxicillin 1 by mouth [facility]tabs [facility] 07/26/2019 - 500mg Tablets three times a Afnp-C 08/05/2019 day Medications Administered in Office Medication SIG Qnty Indications Ordering Provider Date TB Intradermal Test Francisca Mead M.D. 01/03/2014 Injection TB Intradermal Test Jo Magallon M.D. 01/05/2011 Injection TB Intradermal Test Jo Magallon M.D. 02/18/2010 Injection Immunizations CPT Code Status Date Vaccine Reaction Lot # [id number] Given 02/22/2019 Influenza Vac, Quadriv[place], [place] [address] Given 02/01/2017 Influenza Vac, Quadrivalent, Sl[place] [id number] [place] [address] Given 04/02/2014 DO Not Use Split Influenza Virus [facility] Vaccine 38278 Given 03/02/2012 Preservative free flu 3 yrs+ and older [id number] 12761 Given 01/21/2011 DO Not Use Split Influenza Virus [id number] Vaccine 62710 Given 01/05/2011 Tdap Tetanus, W Pertussis [id number] 30063 Given 03/14/2010 DO Not Use Split Influenza Virus [id number] Vaccine Vital Signs Date Vital Result Comment 08/16/2019 11:04am BP Systolic 112 mmHg BP Diastolic 78 mmHg Heart Rate 66 /min prior to exertion, after exertion erratic Body Temperature 99.6 F Respiratory Rate 30 /min after exertion O2 % BldC Oximetry 100 % prior to exertion 07/26/2019 11:35am BP Systolic 142 mmHg BP Diastolic 70 mmHg Heart Rate 80 /min Body Temperature 98.8 F Respiratory Rate 18 /min O2 % BldC Oximetry 98 % Height 65 inches 5'5" measured Weight 242.50 lb BMI (Body Mass Index) 40.3 kg/m2 Results Test Acquired Date Facility Test Result H/L Range Note Influenza A & B 05/28/2019 [facility] [place] AB Disclaimer (SEE NOTE) 1 Request Influenza B Molecular POSITIVE Abnormal Negative 2 CBC Auto Diff 05/28/2019 [facility] [place] White Blood Count 4.8 10^3/uL Normal 3.5- [...] reduce sensitivity of test. Refer to the [facility] Test Catalog for collection information: [email or web address] As with all diagnostic procedures, the laboratory results obtained should be used in conjunction with other clinical information available to the physician, including confirmation by another method, as applicable. 2 Data Entry Machine Operator: [id number] 3 Because ethnic data is not always [...] dialysis) Procedures Date Code Description Status 07/26/2019 78377 Pulse Oximetry Completed 04/18/2019 31276 Brief Emotional/Behav Assessment W/ Scoring Doc Per Completed Standard Inst Medical Devices Description No Information Available Encounters Type Date Location Provider Dx Diagnosis Office Visit 07/26/2019 Main Office Shirley Gay, J01.90 Acute sinusitis, 11:30a Afnp-C unspecified Office Visit 06/06/2019 Main Office Reva Leebhart, R03.0 Elevated 4:15p HOT IRON WORKER blood-pressure reading, w/o diagnosis of htn F41.9 Anxiety disorder, unspecified G47.00 Insomnia, unspecified Office Visit 04/18/2019 4:00p Main Office Reva Terrell, HOT IRON WORKER R51 Headache N92.6 Irregular menstruation, unspecified F41.9 Anxiety disorder, unspecified G47.00 Insomnia, unspecified Z12.4 Encounter for screening for malignant neoplasm of cervix Assessments Date Code Description Provider 08/16/2019 R50.9 Fever, unspecified Alisson Rdz, RECOVERY AGENT 08/16/2019 R06.02 Shortness of breath Alisson Rdz, RECOVERY AGENT 07/26/2019 J01.90 Acute sinusitis, unspecified Shirley Gay, Afnp-C 06/06/2019 R03.0 Elevated blood-pressure reading, without Reva Terrell , HOT IRON WORKER diagnosis of hypertension 06/06/2019 F41.9 Anxiety disorder, unspecified Reva Terrell, HOT IRON WORKER 06/06/2019 G47.00 Insomnia, unspecified Reva Terrell, HOT IRON WORKER 04/18/2019 R51 Headache Reva Terrell, HOT IRON WORKER 04/18/2019 N92.6 Irregular menstruation, unspecified Reva Terrell, HOT IRON WORKER 04/18/2019 F41.9 Anxiety disorder, unspecified Reva Terrell, HOT IRON WORKER 04/18/2019 G47.00 Insomnia, unspecified Reva Terrell, HOT IRON WORKER 04/18/2019 Z12.4 Encounter for screening for malignant Reva Terrell, HOT IRON WORKER neoplasm of cervix Plan of Treatment 08/16/2019 - Alisson Rdz, NPR50.9 Fever, unspecifiedNew Labs:Flu A&B ( Fma), Ordered: 08/16/19R06.02 Shortness of breathComments:I recommend you go to [facility] emergency department for further evaluation. It may simply be a combination of anxiety and asthma, but I do not like the sounds of your shortness of breath or dizziness.AllComments:1. Patient has been queried about patient's goals/preferences and functional/lifestyle goals at relevant visits. If relevant, describe: Has been discussed, noted above2. Treatment goals as explainedto the patient: see above3. Are there barriers to meeting treatment goals? Yes If Yes, please describe: Barriers include possible insurance limits, disease process, and difficulty with lifestyle changes4. Self -Management goals as described to the patient: Yes, see above As always, we strongly encourage a healthy diet and making physical activity a part of your every day life. If you have questions about how or where to start, please contact the office. Functional Status Description No Information Available Mental Status Description No Information Available Referrals Description No Information Available
--- NOTE | 2019-08-16 12:52 | ED ---
Shortness of Breath - HPI Summary HPI Summary: Patient is a 34-year-old female who presents emergency department for shortness of breath and cough times several days. Patient denies sick contacts or contact with known COVID positive patient. Patient denies fever. Patient notes a history of asthma when she gets respiratory infection. Patient was seen by her PCP today and tested negative for the flu and was directed to the ER for COVID testing. Patient states she has a Ventolin inhaler but did not take it today because she did not take today's and she was being seen by PCP. Symptoms are mild in severity. No current modifying factors. Patient is not on oral contraceptives, no history of clotting disorders, no recent surgeries or long periods sitting. - History of Current Complaint Chief Complaint: EDShortnessOfBreath Time Seen by Provider: 08/16/19 12:06 Hx Obtained From: Patient - Allergy/Home Medications Allergies/Adverse Reactions: Allergies Allergy/AdvReac Type Severity Reaction Status Date / Time methylprednisolone Allergy Hives Verified 08/16/19 12:10 Home Medications: Home Medications Albuterol HFA INHALER* [Ventolin HFA Inhaler*] 1 - 2 puff INH Q6H PRN #1 mdi 05/05 [Rx Confirmed 08/16/19] Buspirone HCl 7.5 mg PO BID 05/28/19 [History Confirmed 08/16/19] Famotidine TAB* [Pepcid 20 MG TAB*] 40 mg PO BID 05/28/19 [History Confirmed 06/05] Ferrous Sulfate TAB* 325 mg PO BID 05/28/19 [History Confirmed 08/16/19] Fexofenadine (NF) [Velma (NF)] 60 mg PO DAILY 05/28/19 [History Confirmed 06/05] LORazepam [Lorazepam] 0.5 mg PO BID PRN 05/28/19 [History Confirmed 08/16/19] PMH/Surg Hx/FS Hx/Imm Hx Previously Healthy: Yes Endocrine/Hematology History: Denies: Hx Diabetes, Hx Thyroid Disease Cardiovascular History: Denies: Hx Hypertension, Hx Pacemaker/ICD Respiratory History: Reports: Hx Sleep Apnea, Other Respiratory Problems/ Disorders - SLEEP APNEA W/ CPAP X 3 WKS Denies: Hx Asthma, Hx Chronic Obstructive Pulmonary Disease (COPD) GI History: Reports: Other GI Disorders - constant nausea Denies: Hx Ulcer History: Denies: Hx Renal Disease Musculoskeletal History: Reports: Other Musculoskeletal History - Plantars Fasciitis Denies: Hx Rheumatoid Arthritis, Hx Osteoporosis Sensory History: Reports: Hx Contacts or Glasses Denies: Hx Hearing Aid Opthamlomology History: Reports: Hx Contacts or Glasses Neurological History: Reports: Hx Headaches Psychiatric History: Reports: Hx Panic Disorder - ANXIETY - Surgical History Surgery Procedure, Year, and Place: WISDOM TEETH EXTRACTION Infectious Disease History: No Infectious Disease History: Denies: Hx Hepatitis, Hx Human Immunodeficiency Virus (HIV), Traveled Outside the [place] in Last 30 Days - Family History Known Family History: Positive: Cardiac Disease, Diabetes, Non-Contributory - Social History Occupation: Employed Full-time Lives: With Family Alcohol Use: Rare Hx Substance Use: No Substance Use Type: Reports: None Hx Tobacco Use: No Smoking Status (MU): Never Smoked Tobacco Have You Smoked in the Last Year: No Review of Systems Constitutional: Negative Negative: Fever Cardiovascular: Negative Positive: Shortness Of Breath, Cough Genitourinary: Negative Skin: Negative Neurological/Mental Status: Negative All Other Systems Reviewed And Are Negative: Yes Physical Exam Triage Information Reviewed: Yes Vital Signs On Initial Exam: Initial Vitals Pulse BP Pulse Ox 75 99/85 99 08/16/19 12:05 08/16/19 12:05 08/16/19 12:05 Vital Signs Reviewed: Yes Appearance: Positive: Well-Appearing Skin: Positive: Warm, Dry Head/Face: Positive: Normal Head/Face Inspection Eyes: Positive: Normal, EOMI Neck: Positive: Supple Respiratory/Lung Sounds: Positive: Other - Breath sounds throughout with mildly decreased breath sounds in bases. No accessory muscle use. Cardiovascular: Positive: Normal, RRR Musculoskeletal: Negative: Edema Left, Edema Right Neurological: Positive: Normal, CN Intact II-III Psychiatric: Positive: Affect/Mood Appropriate Procedures - Sedation Patient Received Moderate/Deep Sedation with Procedure: No Diagnostics - Vital Signs Vital Signs Temp Pulse Resp BP Pulse Ox 08/16/19 12:08 97.9 F 81 16 99/85 98 08/16/19 12:06 76 99 08/16/19 12:05 75 99/85 99 - Laboratory Lab Statement: Any lab studies that have been ordered have been reviewed, and results considered in the medical decision making process. Course/Dx - Course Course Of Treatment: Patient with complaint of cough and shortness of breath. She is afebrile. Oxygen saturation 98% in room air which is normal. Perks score is 0. Chest x-ray negative for acute findings per radiology. Patient took 2 puffs of her own albuterol and shortness of breath improved. ECG done at 1320 shows a sinus rhythm of 68bpm, normal axis, prolonged QT, no ST elevation or depression. COVID pending. Will dc home. pt. to use inhaler 2 puffs ever 4-6 hours. INcrease fluids and rest. To f.u isoloation protocol. Will return to er if sxs change or worsen. - Diagnoses Differential Diagnosis/HQI/PQRI: Positive: Asthma, Bronchitis, Pneumonia, SARS Provider Diagnoses: Cough, Shortness of breath Discharge ED - Sign-Out/Discharge Documenting (check all that apply): Patient Departure - Discharge Plan Condition: Improved Disposition: HOME Patient Education Materials: Bronchospasm (ED), Acute Cough (ED) Forms: COVID-19 Tested & Isolation Referrals: Shila Davis MD [Primary Care Provider] - Additional Instructions: Please see your PCP in 2-3 days if symptoms persist for recheck Use your inhaler 2 puffs every 4-6 hours for shortness of breath Increase fluids and rest Tylenol for discomfort as directed Health department will follow up with COVID testing Follow isolation rules on handout Return to ER if symptoms change or worsen - Billing Disposition and Condition Condition: IMPROVED Disposition: Home
[2019-08-16 13:37] VITALS: BP 130/83
== END 2019-08-16 13:32 | disposition home or self-care (01) ==
LOC: ED 11:34
DX: R06.02 Shortness of breath (principal); R05 Cough; Z79.899 Other long term (current) drug therapy; Z20.828 Contact with and (suspected) exposure to other viral communicable diseases
CPT/HCPCS: 71045; 87635; 93005; 99282

== ENCOUNTER 2019-08-17 12:39 | Emergency (ER) | payer BC, OTHER ==
--- NOTE | 2019-08-17 14:31 | ED ---
Shortness of Breath - HPI Summary HPI Summary: Patient is a 34 y/o F w/ Hx of asthma who presents to [facility] with complaints of SOB, cough, chills, shakiness, and diaphoresis. Patient was evaluated for SOB and cough at [facility] yesterday, 08/16/19. COVID test pending, patient was discharged to home. She states that last evening, she began to feel SOB once more and took two puffs of her inhaler. Patient subsequently experienced onset of chills, diaphoresis, shakiness. She states that she had 3-4 episodes of these Sx. Patient called her physician and was advised to come back to ED. Patient denies N/V, hematuria, dysuria, increased frequency of urination but does note that she had an episode of diarrhea last evening. Patient does not report any chills, erythema of eyes, sore throat, chest pain, abdominal pain, nausea/vomiting, dysuria, hematuria, myalgia, edema, rash, or dizziness. On triage, associated severity is rated 5/10. On manager assessment, nothing is noted to aggravate/alleviate Sx. Home medications and allergies are reviewed. - History of Current Complaint Chief Complaint: EDShortnessOfBreath Time Seen by Provider: 08/17/19 12:51 Hx Obtained From: Patient Onset/Duration: Lasting Days Timing: Intermittent Episodes Lasting: Current Severity: Moderate Aggravating Factors: Nothing Alleviating Factors: Nothing Associated Signs & Symptoms: Chills, Diaphoresis - Allergy/Home Medications Allergies/Adverse Reactions: Allergies Allergy/AdvReac Type Severity Reaction Status Date / Time methylprednisolone Allergy Hives Verified 08/17/19 12:47 Home Medications: Home Medications Buspirone HCl 7.5 mg PO BID 05/28/19 [History Confirmed 08/17/19] Famotidine TAB* [Pepcid 20 MG TAB*] 40 - 80 mg PO Q12H PRN 05/28/19 [History Confirmed 08/17/19] LORazepam [Lorazepam] 0.5 mg PO BID PRN 05/28/19 [History Confirmed 08/17/19] Albuterol HFA INHALER* [Ventolin HFA Inhaler*] 2 puff INH .Q4-6H PRN 08/17/19 [ History Confirmed 08/17/19] Aspirin/Acetaminophen/Caffeine [Excedrin Migraine Caplet] 2 each PO Q8H PRN 07/06 [History Confirmed 08/17/19] Azithromycin TAB* [Zithromax TAB (Z-JAMEE) 250 mg #6 tabs] 2 tab PO .TODAY, THEN 1 DAILY #1 jamee 08/17/19 [Rx] Benzonatate CAP* [Tessalon 100 MG CAP*] 200 mg PO TID PRN 08/17/19 [History Confirmed 08/17/19] Fexofenadine (NF) [Velma (NF)] 60 mg PO DAILY 08/17/19 [History Confirmed 07/06] Levalbuterol 1.25MG/0.5ML NEB* [Xopenex 1.25 MG/0.5 ML NEB.VI*] 1.25 mg INH Q4H PRN #1 box 08/17/19 [Rx] Levalbuterol HFA INHALER* [Xopenex Hfa Inhaler*] 1 puff INH Q4H PRN #1 mdi 08/16 [Rx] Multivitamins/Minerals TAB* [Theragran/minerals TAB*] 1 tab PO DAILY 08/17/19 [ History Confirmed 08/17/19] SUMAtriptan TAB* [Imitrex TAB*] 25 mg PO ONCE 08/17/19 [History Confirmed ] PMH/Surg Hx/FS Hx/Imm Hx Endocrine/Hematology History: Denies: Hx Diabetes, Hx Thyroid Disease Cardiovascular History: Denies: Hx Hypertension, Hx Pacemaker/ICD Respiratory History: Reports: Hx Sleep Apnea, Other Respiratory Problems/ Disorders - SLEEP APNEA W/ CPAP X 3 WKS Denies: Hx Asthma, Hx Chronic Obstructive Pulmonary Disease (COPD) GI History: Reports: Other GI Disorders - constant nausea Denies: Hx Ulcer History: Denies: Hx Renal Disease Musculoskeletal History: Reports: Other Musculoskeletal History - Plantars Fasciitis Denies: Hx Rheumatoid Arthritis, Hx Osteoporosis Sensory History: Reports: Hx Contacts or Glasses Denies: Hx Hearing Aid Opthamlomology History: Reports: Hx Contacts or Glasses Neurological History: Reports: Hx Headaches Psychiatric History: Reports: Hx Panic Disorder - ANXIETY - Surgical History Surgery Procedure, Year, and Place: WISDOM TEETH EXTRACTION Infectious Disease History: No Infectious Disease History: Denies: Hx Hepatitis, Hx Human Immunodeficiency Virus (HIV), Traveled Outside the [place] in Last 30 Days - Family History Known Family History: Positive: Cardiac Disease, Diabetes, Non-Contributory - Social History Alcohol Use: Rare Hx Substance Use: No Substance Use Type: Reports: None Hx Tobacco Use: No Smoking Status (MU): Never Smoked Tobacco Have You Smoked in the Last Year: No Review of Systems Positive: Chills, Skin Diaphoresis, Other - shakiness . Negative: Fever Negative: Erythema Negative: Sore Throat Negative: Chest Pain Positive: Shortness Of Breath, Cough Positive: Diarrhea. Negative: Abdominal Pain, Vomiting, Nausea Negative: discharge, frequency, hematuria Negative: Myalgia, Edema Negative: Rash Neurological/Mental Status: Other - negative - dizziness All Other Systems Reviewed And Are Negative: Yes Physical Exam - Summary Physical Exam Summary: Constitutional: Well-developed, Well-nourished, Alert. (-) Distressed Skin: Warm, Dry HENT: Normocephalic; Atraumatic Eyes: Conjunctiva normal Neck: Musculoskeletal ROM normal neck. (-) JVD, (-) Stridor, (-) Tracheal deviation Cardio: Rhythm regular, rate normal, Heart sounds normal; Intact distal pulses; The pedal pulses are 2+ and symmetric. Radial pulses are 2+ and symmetric. (-) Murmur Pulmonary/Chest wall: Effort normal. (-) Respiratory distress, (+) Wheezes, (-) Rales Abd: Soft, (-) tenderness, (-) Distension, (-) Guarding, (-) Rebound Musculoskeletal: (-) Edema Lymph: (-) Cervical adenopathy Neuro: Alert, Oriented x3 Psych: Mood and affect Normal Triage Information Reviewed: Yes Vital Signs On Initial Exam: Initial Vitals Temp Pulse Resp BP Pulse Ox 98.5 F 89 18 125/87 98 08/17/19 12:46 08/17/19 12:46 08/17/19 12:46 08/17/19 12:46 08/17/19 12:46 Vital Signs Reviewed: Yes Procedures - Sedation Patient Received Moderate/Deep Sedation with Procedure: No Diagnostics - Vital Signs Vital Signs Temp Pulse Resp BP Pulse Ox 08/17/19 12:46 98.5 F 89 18 125/87 98 - Laboratory Result Diagrams: 08/17/19 15:32 08/17/19 15:32 Lab Statement: Any lab studies that have been ordered have been reviewed, and results considered in the medical decision making process. - Radiology CXR Radiology Interpretation Completed By: Radiologist Summary of Radiographic Findings: IMPRESSION: DEVELOPING PATCHY AIRSPACE DISEASE OF THE RIGHT LUNG BASE. THIS REPORT WAS REVIEWED BY ED PHYSICIAN. - EKG 1512 Cardiac Rate: NL - rate of 75 BPM EKG Rhythm: Sinus Rhythm Summary of EKG Findings: EKG showed NSR with rate of 75 BPM, no STEMI. ED physician has reviewed and interpreted this EKG. Re-Evaluation - Re-Evaluation First Eval Re-Evaluation Time: 17:47 Comment: [id number] Pharmacy had reported that they are currently rationing xopenex inhalers. Patient will be written prescription for xopenex inhaler as well as antibiotics for PNA. Patient is agreeable with discharge to home. Course/Dx - Course Course Of Treatment: Patient is a 34 y/o F w/ Hx of asthma who presents to [facility] with complaints of SOB, cough, chills, shakiness, and diaphoresis. Patient was evaluated for SOB and cough at [facility] yesterday, 08/16/19. COVID test pending, patient was discharged to home. She states that last evening, she began to feel SOB once more and took two puffs of her inhaler. Patient subsequently experienced onset of chills, diaphoresis, shakiness. She states that she had 3-4 episodes of these Sx. Patient called her physician and was advised to come back to ED. Patient denies N/V, hematuria, dysuria, increased frequency of urination but does note that she had an episode of diarrhea last evening. Adverse effect of albuterol vs rigors for differential. On physical exam, slight wheeze is noted. EKG showed NSR with rate of 75 BPM, no STEMI. Bloodwork was obtained and within normal limits with exception of RBC 5.01, APTT 43.4. CXR IMPRESSION: DEVELOPING PATCHY AIRSPACE DISEASE OF THE RIGHT LUNG BASE. No hypoxia, no evidence of Sx noted. Pharmacy had reported that they are currently rationing xopenex inhalers. Patient will be written prescription for xopenex inhaler as well as antibiotics for PNA. Patient is agreeable with discharge to home. - Diagnoses Provider Diagnoses: Suspected COVID-19 virus infection, Community acquired pneumonia, Albuterol adverse reaction Discharge ED - Sign-Out/Discharge Documenting (check all that apply): Patient Departure - discharge - Discharge Plan Condition: Stable Disposition: HOME Prescriptions: Azithromycin TAB* [Zithromax TAB (Z-JAMEE) 250 mg #6 tabs] 2 tab PO .TODAY, THEN 1 DAILY #1 jamee Levalbuterol 1.25MG/0.5ML NEB* [Xopenex 1.25 MG/0.5 ML NEB.VI*] 1.25 mg INH Q4H PRN #1 box PRN Reason: Shortness Of Breath Levalbuterol HFA INHALER* [Xopenex Hfa Inhaler*] 1 puff INH Q4H PRN #1 mdi PRN Reason: Shortness Of Breath Patient Education Materials: Community Acquired Pneumonia (ED) Forms: COVID-19 Tested & Isolation Referrals: Shila Davis MD [Primary Care Provider] - 3 Days Tiffany Bennett MD [Medical Doctor] - Additional Instructions: TAKE TYLENOL EVERY 4-6 HOURS FOR YOUR SYMPTOMS. STOP USING YOUR ALBUTEROL INHALER AND USE THE XOPENEX INHALER THAT YOU HAVE BEEN PRESCRIBED. PLEASE RETURN TO ED FOR ANY NEW OR CONCERNING SYMPTOMS. PLEASE FOLLOWUP WITH YOUR PRIMARY CARE PHYSICIAN WITHIN THREE DAYS. CALL DR. BENNETT'S OFFICE TOMORROW WELL. - Attestation Statements Document Initiated by Scribe: Yes Documenting Scribe: ERIC DO Provider For Whom Kellen is Documenting (Include Credential): ANGY GARCÍA MD Scribe Attestation: ERIC De Santiago, scribed for ANGY GARCÍA MD on 08/17/19 at 1802. Status of Scribe Document: Ready
[2019-08-17] MEDS ORDERED: Levalbuterol HFA INHALER* 1 PUFF MDI INH ONE (14:48)
[2019-08-17 15:44] LABS: ABS Basophils 0.1 10^3/ul (0-0.2); ABS Eosinophils 0.1 10^3/ul (0-0.6); ABS Lymphocytes 2.5 10^3/ul (1.0-4.8); ABS Monocytes 0.6 10^3/ul (0-0.8); ABS Neutrophils 6.3 10^3/ul (1.5-7.7); Eosinophil % 1.2 %; Hematocrit 42 % (35-47); Lymphocyte % 26.1 %; Mean Corpuscular HGB Conc 33 g/dL (31-36); Mean Corpuscular Hemoglobin 28 pg (27-31); Mean Corpuscular Volume 84 fL (80-97); Mean Platelet Volume 7.5 fL (7.4-10.4); Nucleated Red Blood Cells % 0.1; Platelet Count 341 10^3/uL (150-450); Red Blood Count 5.01 10^6 /uL (3.70-4.87); Red Cell Distribution Width 14 % (10-15); White Blood Count 9.4 10^3/uL (3.5-10.8)
[2019-08-17 16:04] LABS: Albumin 4.3 g/dL (3.2-5.2); Albumin/Globulin Ratio 1.3 (1-3); Calcium 9.2 mg/dL (8.6-10.3); EGFR African American 107.7 (>60); Globulin 3.3 g/dL (2-4); Magnesium 2.2 mg/dL (1.9-2.7); Potassium 3.9 mmol/L (3.5-5.0); Total Bilirubin 0.7 mg/dL (0.2-1.0); Total Protein 7.6 g/dL (6.4-8.9)
[2019-08-17 16:13] LABS: Activated Partial Thrombo Time 43.4 seconds (26.0-38.0); INR 1.02 (0.82-1.09)
[2019-08-17 18:12] VITALS: BP 111/81
== END 2019-08-17 18:12 | disposition home or self-care (01) ==
LOC: ED 12:39
DX: J18.9 Pneumonia, unspecified organism (principal); T48.6X5A Adverse effect of antiasthmatics, initial encounter; R06.02 Shortness of breath; F41.9 Anxiety disorder, unspecified; R19.7 Diarrhea, unspecified; R05 Cough; Z20.828 Contact with and (suspected) exposure to other viral communicable diseases
CPT/HCPCS: 36415; 71045; 80053; 83605; 83735; 84484; 85025; 85610; 85730; 87040; 93005; 99283; A9270-GY